=== PATIENT | female | born 1995 | race Caucasian/White ===

== ENCOUNTER 2018-02-06 08:10 | Inpatient (IN) | payer OTHER, SELFPAY ==
[2018-02-06 08:38] VITALS: BMI 24.3
[2018-02-06] MEDS: Lactated Ringers 1,000 ML 50 ML IV ×3 (08:40→14:07)
--- NOTE | 2018-02-06 08:54 | PCM.HP.OB ---
History Date of Admission: 02/06/18 Final ELAINA: 02/04/18 Final ELAINA Source: US <20 weeks Gestational age: 40 Weeks and 2 Days History of this : This is a 22 year-old, G [], P [], at 40 weeks gestational age. Allergies gluten Adverse Reaction (Verified 02/06/18 08:40) Upset Stomach Home Medications: Home Medications Vit Calc,Iron,Folic [ Vitamins] 02/06/18 Smoking Status: Never smoker Alcohol: None Number of Fetus(es): 1 Heart Tracing: Baseline 135, moderate variability, + accels, no decels TOCO Analysis: Ctx q 3-4 minutes, palpate moderately strong History Past Pregnancies: Past Pregnancies Delivery Date Name GA/Weeks Outcome Route Weight Gender Labor Length Anesthesia Delivery Location Provider FOB Labs: GBS Neg, H/H = 12.0/37.1, Plt count = WNL, 1 hour GCT = 92, U Tox = Neg, A +, Abs Neg, RPR = Neg, HIV = Neg, HepBsAg = Neg, Rubella = Immune Expected Delivery Method: Spontaneous Vaginal Describe any other labor & delivery plans:: Patient desires epidural Number of Visits: 14 Review of Systems Constitutional: Denies: Chills, Fever, Weight Change HEENT: Denies: Head Aches, Sinus Congestion, Sinus Drainage Cardiovascular: Denies: Chest Pain, Palpitations Respiratory: Denies: Cough, Shortness of breath at rest, Sputum production Gastrointestinal: Denies: Abdominal Pain, Nausea, Vomiting Genitourinary: Denies: Dysuria Gynecological: Denies: Vaginal bleeding, Vaginal discharge Musculoskeletal: Denies: Joint Pain, Joint Tenderness Skin: Denies: Rash, Wounds Neurological: Denies: Numbness, Tingling, Focal weakness Psychiatric: Denies: Anxiety, Depression, Homicidal Ideations, Suicidal Ideations Hematologic/ Lymphatic: Denies: Easy Bruising, Easy Bleeding Physical Exam Vitals: See nursing noted for vital signs - patient is afebrile and normotensive General: Alert, Oriented x3, No apparent distress HEENT: Atraumatic, Normocephalic. Negative for: Thyromegaly, Lymphadenopathy Cardiovascular: Regular rate, Regular Rhythm Lungs: Normal air movement Abdomen: Soft, Non Tender, Gravid, Appropriate for Gestational Age Neurological: Deep Tendon Reflexes 2+/4 and Symmetrical, Neuro grossly intact TRUCKMAN: Normal external genitalia. Negative for: Vulvar lesions Estimated gestational size: Appropriate for gestational size Presentation: Cephalic Cervix Dilation (cm): 6.5 - cervix posterior to midposition Station: 0 Effacement (%): 90 Assessment/Plan This is a 22 year-old, G [1], P [0], at 40 weeks gestational age, Active Labor, Category I FHT P: 1) Admit patient - patient desires epidural for pain management 2) Start IV and draw admission bloodwork 3) Encourage ambulation and PO hydration 4) Epidural on request once fluid bolus administered 5) Dr. Clayton OB back-up aware of admission and plan of care Dona APPLE
[2018-02-06 09:12] LABS: Hematocrit 34.7 % (37-47); Hemoglobin 11.3 g/dl (12.0-15.0); Mean Corp Hgb Conc 32.6 g/gl (32-36); Mean Corpuscular Hgb 29.1 pg (27.0-32.0); Mean Corpuscular Volume 89.4 fL (81-99); Mean Platelet Vol. 9.6 fl (6.2-12.0); Platelet Count 319 K/mm3 (150-450); RBC Distribution Width CV 12.8 % (11.6-14.6); RBC Distribution Width SD 40.7 fl (35.1-43.9); Red Blood Count 3.88 M/mm3 (4.2-5.4); White Blood Count 15.5 K/mm3 (4.4-11.0)
[2018-02-06 09:13] LABS: Scan Indicated on CBC? Y/N NO
[2018-02-06] MEDS: Ondansetron 4 MG/2 ML Vial IV (09:23)
[2018-02-06] MEDS: fentaNYL-bupivacaine (epidural) 100 ML BAG EPIDURAL ×2 (09:32→14:34)
--- NOTE | 2018-02-06 12:38 | PCM.PN.OB ---
Subjective: Patient is sitting comfortably with her epidural. Patient reports continued pressure sensations with contractions but overall is without any complaints. Patient desires SVE with possible AROM at this time. Objective: FHT baseline 140, moderate variability, + accels, no decels Ctx q 2-3 minutes, palpate moderate to strong SVE = 8/100/0, AROM for small clear fluid. After AROM cervix = 9/100/0 - Physical Exam General: Alert, Oriented x3, Cooperative HEENT: Atraumatic, Normocephalic Neck: Supple Lungs: Normal air movement Cardiovascular: Regular rate, No murmurs Abdomen: Soft, Non Tender, Appropriate for Gestational Age Extremities: No edema, Capillary Refill Less than 3 Seconds Skin: No rashes, No breakdown Musculoskeletal: No Tenderness to Palpation of Joints or Extremities Neurological: Cranial nerves II-XII grossly intact Psych/Mental Status: Normal Affect, Appropriate Weight: 160 lb Body Mass Index (BMI) 24.3 Laboratory Tests Past 24 Hrs 02/06/18 02/06/18 08:40 08:40 WBC 15.5 H RBC 3.88 L Hgb 11.3 L Hct 34.7 L MCV 89.4 MCH 29.1 MCHC 32.6 RDW 12.8 RDW Differential 40.7 Plt Count 319 MPV 9.6 Blood Type A POSITIVE Antibody Screen NEGATIVE Medical Necessity - Tobacco Use Smoking Status: Never smoker Assessment/Plan A: 22 y/o @ 40.2wks, Transition Stage of Labor, Category I FHT P: 1) Expectant management 2) Anticipate Dona APPLE
--- NOTE | 2018-02-06 14:58 | PCM.PN.OB ---
Subjective: Patient feeling urge to bear down and push. Patient's cervix noted to be C/C/+1 on exam by nursing staff. Objective: FHT baseline 140, moderate variability, early decels with each contraction Ctx q 2 minutes, palpate moderate to strong - Physical Exam General: Alert, Oriented x3, Cooperative HEENT: Atraumatic, Normocephalic Neck: Supple Lungs: Normal air movement Cardiovascular: Regular rate, No murmurs Abdomen: Soft, Non Tender Extremities: No edema, Capillary Refill Less than 3 Seconds Skin: No rashes, No breakdown Musculoskeletal: No Tenderness to Palpation of Joints or Extremities Neurological: Cranial nerves II-XII grossly intact Psych/Mental Status: Normal Affect, Appropriate Weight: 160 lb Body Mass Index (BMI) 24.3 Laboratory Tests Past 24 Hrs 02/06/18 02/06/18 08:40 08:40 WBC 15.5 H RBC 3.88 L Hgb 11.3 L Hct 34.7 L MCV 89.4 MCH 29.1 MCHC 32.6 RDW 12.8 RDW Differential 40.7 Plt Count 319 MPV 9.6 Blood Type A POSITIVE Antibody Screen NEGATIVE Medical Necessity - Tobacco Use Smoking Status: Never smoker Assessment/Plan A: 22 y/o @ 40.2wks, Second Stage of Labor, Category II FHT P: 1) Continue to push with patient urge 2) Anticipate Dona APPLE
[2018-02-06] MEDS: Oxytocin 30 units/NS 500 ml 30 UNITS/500 ML IV.SOLN 334 UNITS IV (16:09)
--- NOTE | 2018-02-06 16:23 | PCM.OB.VAG ---
Vaginal Delivery Maternal Presentation: Active Labor Patient presented in active labor after initiation of ctx at 0500 this morning. Ctx quickly became closer and stronger and patient was found to be 6/7 cm on admission to hospital. Patient's labor progressed uneventfully. Amniotic Membrane Rupture Type: Spontaneous at home Amniotic Fluid Description: Clear Final ELAINA: 02/04/18 Gestational age: 40 Weeks and 2 Days Date of Procedure: 02/06/18 Pre-Operative Diagnosis: Active Labor Post-Operative Diagnosis: of viable girl baby Surgery/ Procedure Performed: Spontaneous Vaginal Delivery Anesthesiologist: John Bazan Type of Anesthesia: Epidural Description of Procedure: Patient pushed well with urge, patient delivered a viable girl baby over an intact perineum at 1604. Infant head delivered OA, restituted to RICKY and then LOT. Shoulders delivered without difficulty followed by body. Infant placed on maternal chest where baby was dried and stimulated. Infant had spontaneous cry and respirations. Apgars 8 and 9. Weight Pending. Placenta then spontaneously delivered via Best mechanism intact with 3VC. FF midline 4FB below umbilicus. EBL = 150cc. IV pitocin for active management of 3rd stage infusing per protocol. Upon inspection of vaginal vault, 1st degree Rt. labial laceration noted. Repaired with 1 stitch of 3-0 Rapide suture under epidural analgesia. Sponge and needle count correct. Vaginal sweep negative. Baby to breast and bonding with [id number] initiated. Dona Casillas FANS CLERK-CNM Presentation: Vertex, RICKY Placental Delivery Description: Spontaneous Placenta Disposition: [facility] Cord Vessel Description: 3 Vessels Cord Entanglement: None Estimated Blood Loss: 150 Infant A gender: Female (1 minute): 8 (5 minute): 9 Episiotomy Description: None Laceration: None Medications given after delivery: IV Pitocin Complications: None
--- NOTE | 2018-02-06 16:35 | PCM.DCVAG ---
Discharge Diet: No Restrictions Discharge Activity: Return to Normal Activity, May not drive while taking narcotic pain medications., May Shower May resume sexual activity in: 4-6 weeks Additional Activity Instructions:: Nothing in the vagina for 4-6 weeks. You may return to work/school in 6 weeks. Call your doctor if your incision/area has: Continuous Slow Oozing, Sudden Increased Bleeding, Increased Pain/ Swelling, Increased Redness, Foul Smelling Discharge Call your doctor if you observe: Fever of 101 or Higher, Inability to urinate, Inability to have a bowel movement, Using more than one pad per hour Additional Instructions: If you experience any of the following, contact your healthcare provider. Bleeding that soaks a pad every hour for 2 hours Fever 100.4 or higher Unrelieved incision or abdominal pain Swelling, redness, discharge or bleeding from your incision or episiotomy site Your incision begins to separate Problems urinating (including inability to urinate or burning while urinating). Visual changes Severe headache Flu-like symptoms Pain or redness in one of both of your breasts Pain, warmth, tenderness or swelling in your legs, especially the calf area Frequent nausea and vomiting Symptoms of depression or anxiety If you experience any of the following, call 911 or go to the nearest Emergency Room. Chest pain Problems breathing Seizure activity Partial or complete paralysis of a body part, slurred speech, weakness or drooping of the face, or a sudden inability to walk or hold your balance Allergies/Adverse Reactions: Allergies gluten Adverse Reaction (Verified 02/06/18 08:40) Upset Stomach Medications to take at Discharge Vit Calc,Iron,Folic [ Vitamins] 02/06/18 Please Follow Up With: Dona Casillas CNM When: Call to make an appointment with your doctor in 6 weeks. If you had elevated Blood Pressure or 4th degree laceration you will need to be seen in 2 weeks. Primary Care Physician: Jacqueline Blanco DO [Primary Care Provider] - Test Results: Test results from this visit will be discussed in further detail at your follow-up appointment, if applicable. Proposed Discharge Date: 02/08/18
[2018-02-06] MEDS: Oxytocin 30 units/NS 500 ml 30 UNITS/500 ML IV.SOLN 167 UNITS IV (16:40)
[2018-02-06] MEDS: Acetaminophen 500 MG Tablet 1000 MG PO (16:53)
[2018-02-06 20:10] VITALS: BP 118/58; PULSE 89; RESP 18; TEMP 36.8
[2018-02-06 23:45] VITALS: BP 89/46; PULSE 82; RESP 18; TEMP 36.7
[2018-02-07] MEDS: Ibuprofen 600 MG Tablet PO ×4 (00:44→20:06)
[2018-02-07 04:15] VITALS: BP 93/53; PULSE 72; RESP 18; TEMP 36.8
[2018-02-07 07:45] VITALS: BP 87/50; PULSE 75; RESP 16; TEMP 36.5; O2SAT 97
--- NOTE | 2018-02-07 08:55 | PCM.PN.OB ---
Subjective: Patient sitting up in bed reporting no issues overnight. Baby is latching well and is also peeing/pooping well. Patient denies any issues; denies WARD, scotoma, dizziness. Denies any issues with urination or ambulation. Objective: Nipples without cracks or blisters FF midline @ 3FB below umbilicus Scant rubra lochia Perineum well-approximated +2/4 reflexes in LE with no edema Negative calf tenderness in LE - Physical Exam General: Alert, Oriented x3, Cooperative HEENT: Atraumatic, Normocephalic Neck: Supple Lungs: Normal air movement Cardiovascular: Regular rate, No murmurs Abdomen: Soft, Non Tender Extremities: No edema, Capillary Refill Less than 3 Seconds Skin: No rashes, No breakdown Musculoskeletal: No Tenderness to Palpation of Joints or Extremities Neurological: Cranial nerves II-XII grossly intact Psych/Mental Status: Normal Affect, Appropriate Vital Signs Temp Pulse Resp BP Pulse Ox 97.7 F L 75 16 87/50 L 97 02/07/18 07:45 02/07/18 07:45 02/07/18 07:45 02/07/18 07:45 02/07/18 07:45 Oxygen Delivery Method Room Air Weight: 160 lb Body Mass Index (BMI) 24.3 Intake and Output for Last 24 Hours 02/05/18 02/06/18 02/07/18 23:59 23:59 23:59 Intake Total 2876 / 2876 Output Total 1000 / 1000 Balance 1876 / 1876 Laboratory Tests Past 24 Hrs 02/06/18 02/06/18 08:40 08:40 WBC 15.5 H RBC 3.88 L Hgb 11.3 L Hct 34.7 L MCV 89.4 MCH 29.1 MCHC 32.6 RDW 12.8 RDW Differential 40.7 Plt Count 319 MPV 9.6 Blood Type A POSITIVE Antibody Screen NEGATIVE Medical Necessity - Tobacco Use Smoking Status: Never smoker Assessment/Plan 22 y/o now, s/p , PPD #1, Normal PP Course P: 1) Continue present PP orders 2) consultation visit today 3) Anticipate discharge to home tomorrow Dona APPLE
[2018-02-07 12:03] VITALS: BP 89/56; PULSE 82; RESP 16; TEMP 36.4; O2SAT 97
[2018-02-07] MEDS: Senna/Docusate Sodium 1 Tablet PO (12:03)
[2018-02-07 15:59] VITALS: BP 101/65; PULSE 71; RESP 16; TEMP 36.2; O2SAT 96
[2018-02-07 20:00] VITALS: BP 99/54; PULSE 81; RESP 18; TEMP 36.7; O2SAT 97
[2018-02-08 02:25] VITALS: BP 100/65; PULSE 75; RESP 18; TEMP 36.6; O2SAT 96
[2018-02-08] MEDS: Ibuprofen 600 MG Tablet PO ×2 (02:32→08:41)
[2018-02-08 07:52] VITALS: BP 100/56; PULSE 65; RESP 16; TEMP 36.5
--- NOTE | 2018-02-08 08:52 | PCM.PN.OB ---
Subjective: Doing well per patient and nursing staff. Denies headache, scotoma, chest pain, shortness of breath, increased vaginal bleeding or clots. Voiding and passing flatus. without difficulty. Planning D/C home today. - Physical Exam General: Alert, Oriented x3 HEENT: Atraumatic, Normocephalic Lungs: Clear to auscultation, Normal air movement, No rhonchi, No wheeze Cardiovascular: Regular rate, Regular Rhythm, No murmurs Abdomen: Bowel Sounds Present, Soft, - - Fundus firm 2 below U Extremities: No edema Psych/Mental Status: Normal Affect, Appropriate Vital Signs Temp Pulse Resp BP Pulse Ox 97.7 F L 65 16 100/56 L 96 02/08/18 07:52 02/08/18 07:52 02/08/18 07:52 02/08/18 07:52 02/08/18 02:25 Oxygen Delivery Method Room Air Weight: 160 lb Body Mass Index (BMI) 24.3 Intake and Output for Last 24 Hours 02/06/18 02/07/18 02/08/18 23:59 23:59 23:59 Intake Total 2876 / 2876 Output Total 1000 / 1000 Balance 1876 / 1876 Medical Necessity - Tobacco Use Smoking Status: Never smoker Assessment/Plan A:PPD #2 P: 1) Planning D/C home today. D/C instructions given. 2) Follow up in 2 weeks and 6 weeks for visit.
== END 2018-02-08 09:35 | disposition home or self-care (01) | DRG 775 ==
PROVIDERS: Advanced Practice Midwife; Admitting Provider Obstetrics & Gynecology; Family Provider Internal Medicine; PCP Internal Medicine; Visit Provider Obstetrics & Gynecology
DX: O42.02 Full-term premature rupture of membranes, onset of labor within 24 hours of rupture (principal); O70.0 First degree perineal laceration during delivery; Z3A.40 40 weeks gestation of pregnancy; Z37.0 Single live birth
CPT/HCPCS: 36415; 59025; 59050; 85027; 86850; 86900; 99218; J7120; G0378; J2405

== ENCOUNTER 2018-02-10 11:05 | Outpatient (CLI) | payer OTHER, SELFPAY | END 2018-02-10 12:00 | disposition home or self-care (01) | LOC: WPOUT 11:11 → WP 11:13 | PROVIDERS: Family Provider Internal Medicine; PCP Internal Medicine; Visit Provider Obstetrics & Gynecology | DX: Z39.1 Encounter for care and examination of lactating mother (principal) | CPT/HCPCS: 96152 ==

== ENCOUNTER 2018-05-10 18:48 | Emergency (ER) | payer OTHER, SELFPAY ==
[2018-05-10 18:49] VITALS: BP 118/71; PULSE 101; RESP 16; TEMP 37; O2SAT 98; BMI 21.1
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
[2018-05-10 20:33] VITALS: BP 113/66; PULSE 73; O2SAT 95
== END 2018-05-10 20:34 | disposition home or self-care (01) ==
PROVIDERS: Emergency Provider Emergency Medicine; Family Provider Internal Medicine; PCP Internal Medicine
DX: S09.90XA Unspecified injury of head, initial encounter (principal); V89.2XXA Person injured in unspecified motor-vehicle accident, traffic, initial encounter; Y93.89 Activity, other specified
CPT/HCPCS: 99282

== ENCOUNTER → 2020-02-27 17:00 | Outpatient (CLI) | payer OTHER, SELFPAY ==
[2020-02-27 18:25] LABS: hCG Titer Quant., Serum 4833 mIU/mL (1-3)
== END ==
PROVIDERS: PCP Internal Medicine; Referring Provider Obstetrics & Gynecology; Visit Provider Obstetrics & Gynecology
DX: Z78.9 Other specified health status (principal)
CPT/HCPCS: 36415; 84702

== ENCOUNTER → 2020-02-29 12:38 | Outpatient (CLI) | payer OTHER, SELFPAY ==
[2020-02-29 13:46] LABS: hCG Titer Quant., Serum 5912 mIU/mL (1-3)
== END ==
PROVIDERS: PCP Internal Medicine; Visit Provider Obstetrics & Gynecology
DX: N92.6 Irregular menstruation, unspecified (principal)
CPT/HCPCS: 36415; 84702

== ENCOUNTER → 2020-03-05 13:40 | Outpatient (CLI) | payer OTHER, SELFPAY ==
--- NOTE | 2020-03-05 13:41 | US_ITS ---
STUDY: FIRST TRIMESTER OBSTETRICAL ULTRASOUND REASON FOR EXAM: Female, 24 years old DATES- LMP UNKNOWN LMP: Unknown TECHNIQUE: Transvaginal TECHNICAL QUALITY: Adequate. PRIOR ULTRASOUND: None. FINDINGS: There is visualization of a single gestational sac in a normal intrauterine position. The mean sac diameter (MSD) measures 1.12 cm, indicating an estimated gestational age (EGA) of 5 weeks, 6 days. The gestational sac shape is within normal limits. There is no demonstrated yolk sac. The placenta is non-visualized. There is no demonstrated embryo ( pole). The estimated gestation age (EGA) by US is 5 weeks, 6 days. The estimated date of delivery (ELAINA) by US is 10/30/2020. The uterus measures 9.1 cm x 6.3 cm x 4.9 cm. There is no demonstrated uterine fibroid. The cervix is closed. The right ovary measures 2.8 cm x 1.9 cm x 1.7 cm. There is no right ovarian cyst. There is no visualized right adnexal mass or complex lesion. The left ovary measures 2.8 cm x 2.4 cm x 2.3 cm. There is no left ovarian cyst. There is no visualized left adnexal mass or complex lesion. There is no fluid in the cul de sac. US/Transvaginal w/Preg US IMPRESSION: Intrauterine gestational sac corresponding to a gestational age of 5 weeks and 6 days. No pole, yolk sac or heartbeat is seen at this time. Follow-up with serial beta hCG evaluation is recommended. Electronically Signed: Torito Jordan, at 15:11 EDT , Service support ,
== END ==
PROVIDERS: PCP Internal Medicine; Referring Provider Obstetrics & Gynecology; Visit Provider Obstetrics & Gynecology
DX: O20.0 Threatened abortion (principal); Z3A.00 Weeks of gestation of pregnancy not specified
CPT/HCPCS: 76817

== ENCOUNTER → 2020-03-11 13:44 | Outpatient (CLI) | payer OTHER, SELFPAY ==
--- NOTE | 2020-03-11 13:46 | US_ITS ---
STUDY: FIRST TRIMESTER OBSTETRICAL ULTRASOUND REASON FOR EXAM: Female, 24 years old FOLLOW UP PREV LMP UNKNOWN WELL BEING LMP: Unknown. TECHNIQUE: Transvaginal TECHNICAL QUALITY: Adequate. PRIOR ULTRASOUND: Comparison is made with prior examination dated 03/05/2020. FINDINGS: There is visualization of a single gestational sac in a normal intrauterine position. The mean sac diameter (MSD) measures 1.4 cm, indicating an estimated gestational age (EGA) of 6 weeks, 2 days. The gestational sac has an irregular appearance on the sagittal view. There is no demonstrated yolk sac. The placenta is non-visualized. There is no demonstrated embryo ( pole). The estimated gestation age (EGA) by LMP is unknown. The estimated gestation age (EGA) by US is 6 weeks, 2 days. The estimated date of delivery (ELAINA) by US is 11/02/2020. The uterus measures 9.6 cm x 6.6 cm x 5.1 cm there is evidence of a 2.6 cm x 0.6 cm x 0.7 cm subchorionic bleed adjacent to the empty gestational sac.. There is no demonstrated uterine fibroid. The cervix is closed. The right ovary is not visualized. The left ovary measures 3.2 cm x 2.2cm x 2.4 cm.. There is no left ovarian cyst. There is no visualized left adnexal mass or complex lesion. There is no fluid in the cul de sac. US/Init OB < 14Wks US IMPRESSION: Empty gestational sac which has an irregular appearance with a gestational age of 6 weeks and 2 days. 2.6 cm x 0.6 cm x 0.7 cm subchorionic bleed adjacent to the empty gestational sac. Electronically Signed: Torito Jordan, at 14:43 EDT , Service support ,
== END ==
PROVIDERS: PCP Internal Medicine; Referring Provider Obstetrics & Gynecology; Visit Provider Obstetrics & Gynecology
DX: O20.0 Threatened abortion (principal); Z3A.00 Weeks of gestation of pregnancy not specified
CPT/HCPCS: 76801

== ENCOUNTER → 2020-03-17 18:30 | Outpatient (CLI) | payer OTHER, SELFPAY ==
[2020-03-11 16:32] VITALS: BMI 21.1
--- NOTE | 2020-03-17 18:33 | US_ITS ---
STUDY: FIRST TRIMESTER OBSTETRICAL ULTRASOUND REASON FOR EXAM: Female, 24 years old. viability LMP: Unknown. TECHNIQUE: Transvaginal PRIOR ULTRASOUND: 03/11/20 FINDINGS: Again noted is fluid in the endometrial canal which may represent an early gestational sac. However, no yolk sac or pole is identified. There is a 2.1 x 0.5 cm subchorionic hemorrhage which is decreased in size when compared with the prior exam (previously 2.6 x 0.7 cm). The uterus measures 9.5 x 7.5 x 5.0 cm. There is no demonstrated uterine fibroid. The cervix is closed. The right ovary measures 3.5 x 2.5 x 1.7 cm. There is no right ovarian cyst. There is no visualized right adnexal mass or complex lesion. The left ovary measures 2.9 x 1.9 x 1.7 cm. There is no left ovarian cyst. There is no visualized left adnexal mass or complex lesion. There is no fluid in the cul de sac. US/Init OB < 14Wks US IMPRESSION: Redemonstration of fluid in the endometrial canal which may represent an early gestational sac. However, pneumocephalus or pole is identified. These findings may be due to an early intrauterine gestation, spontaneous or a nonvisualized ectopic . Follow-up sonography in beta hCG levels are recommended. 2.1 x 0.5 cm subchorionic hemorrhage which is decreased in size when compared with the prior exam. Electronically Signed: Marcelino Navarro, at 20:06 EDT Tel , Service support ,
== END ==
PROVIDERS: PCP Internal Medicine; Referring Provider Obstetrics & Gynecology; Visit Provider Obstetrics & Gynecology
DX: Z36.89 Encounter for other specified antenatal screening (principal)
CPT/HCPCS: 76801

== ENCOUNTER → 2020-05-24 18:09 | Outpatient (CLI) | payer OTHER, SELFPAY ==
[2020-03-26 13:04] VITALS: BMI 22.2
[2020-05-24 20:26] LABS: hCG Titer Quant., Serum 330 mIU/mL (1-3)
== END ==
PROVIDERS: PCP Internal Medicine; Visit Provider Obstetrics & Gynecology
DX: N91.2 Amenorrhea, unspecified (principal)
CPT/HCPCS: 36415; 84702

== ENCOUNTER → 2020-05-26 16:44 | Outpatient (CLI) | payer OTHER, SELFPAY ==
[2020-03-26 13:04] VITALS: BMI 22.2
[2020-05-26 18:17] LABS: hCG Titer Quant., Serum 764 mIU/mL (1-3)
== END ==
PROVIDERS: PCP Internal Medicine; Visit Provider Obstetrics & Gynecology
DX: O20.0 Threatened abortion (principal); Z3A.00 Weeks of gestation of pregnancy not specified
CPT/HCPCS: 36415; 84702

== ENCOUNTER → 2020-06-30 14:40 | Outpatient (CLI) | payer OTHER, SELFPAY ==
[2020-06-30 13:36] VITALS: BMI 22.4
[2020-06-30 16:13] LABS: Absolute Lymphocyte Count 2.11 X10^3/uL (0.83-4.51); Absolute Neutrophil Count 4.9 X10^3/uL (2.0-7.7); Basophil# 0.04 X10^3/uL; Basophil% 0.5 % (0-1); Eosinophils% 1.3 % (0-5); Hematocrit 38.2 % (37-47); Hemoglobin 12.6 g/dL (12.0-15.0); Lymphocyte # 2.11 X10^3/ul (4.0); Mean Corpuscular Hgb 29.2 pg (27.0-32.0); Mean Corpuscular Volume 88.6 fL (81-99); Mean Platelet Vol. 9.5 fl (6.2-12.0); Monocyte% 7.7 % (0-10); NRBC Flagged by Analyzer 0 % (0-5); Neutrophil # 4.94 X10^3/uL (2.7-7.7); Neutrophil % 63.2 % (47-70); Platelet Count 353 K/mm3 (150-450); RBC Distribution Width CV 13.2 % (11.6-14.6); RBC Distribution Width SD 42.9 fl (35.1-43.9); Red Blood Count 4.31 M/mm3 (4.2-5.4); White Blood Count 7.8 K/mm3 (4.4-11.0)
[2020-06-30 16:37] LABS: Amphetamine Urine VISTA NEGATIVE (<1000 ng/mL); Barbiturate Urine VISTA NEGATIVE (< 200 ng/mL); Benzodiazepine Urine VISTA NEGATIVE (< 200 ng/mL); Cocaine Urine VISTA NEGATIVE (< 300 ng/mL); Ecstacy Urine VISTA NEGATIVE (< 500 ng/mL); Methadone Urine VISTA NEGATIVE (< 300 ng/mL); PCP Urine VISTA NEGATIVE (< 25 ng/mL); THC Urine VISTA NEGATIVE (< 50 ng/mL); Vista UDS pH Range 5
[2020-07-01 01:36] LABS: Rapid Plasmin Reagin (RPR) NONREACTIVE (NONREACTIVE)
[2020-07-01 09:45] LABS: HIV - WCH Non-Reactive (Nonreactive); Hepatitis B Surface Antigen Non-Reactive (Nonreactive); Hepatitis C Antibody Non-Reactive (Nonreactive); Rubella IgG Reactive (Nonreactive)
[2020-07-05 15:20] LABS: Chlamydia By Nucleic Acid AMP Negative; Gonococcus By Nucleic Acid AMP Negative; HPV Reflexed? NOT INDICATED
== END ==
PROVIDERS: PCP Internal Medicine; Referring Provider Obstetrics & Gynecology; Visit Provider Obstetrics & Gynecology
DX: Z34.80 Encounter for supervision of other normal pregnancy, unspecified trimester (principal); Z12.4 Encounter for screening for malignant neoplasm of cervix
CPT/HCPCS: 36415; 80307; 85025; 86592; 86703; 86762; 86803; 86850; 86900; 86901; 87086; 87340; 87491; 87591; 88142

== ENCOUNTER → 2020-10-25 07:46 | Outpatient (CLI) | payer OTHER, SELFPAY ==
[2020-09-27 08:23] VITALS: BMI 24.0
[2020-10-25 07:58] LABS: Absolute Neutrophil Count 6.4 X10^3/uL (2.0-7.7); Basophil# 0.04 X10^3/uL; Basophil% 0.4 % (0-1); Eosinophil# 0.11 X10^3/uL; Eosinophils% 1.2 % (0-5); Hemoglobin 11.6 g/dL (12.0-15.0); Lymphocyte % 19.4 % (19-41); Mean Corp Hgb Conc 32.2 g/dL (32-36); Mean Corpuscular Hgb 30.7 pg (27.0-32.0); Mean Corpuscular Volume 95.2 fL (81-99); Mean Platelet Vol. 8.7 fl (6.2-12.0); Monocyte% 8.6 % (0-10); NRBC Flagged by Analyzer 0 % (0-5); Neutrophil # 6.42 X10^3/uL (2.7-7.7); Neutrophil % 69.2 % (47-70); Platelet Count 345 K/mm3 (150-450); RBC Distribution Width CV 13.5 % (11.6-14.6); RBC Distribution Width SD 47.7 fl (35.1-43.9); Red Blood Count 3.78 M/mm3 (4.2-5.4); White Blood Count 9.3 K/mm3 (4.4-11.0)
[2020-10-25 08:18] LABS: Glucose Challenge Gest 1H 50g 87 mg/dL (70-140)
== END ==
PROVIDERS: Nurse Practitioner Women's Health; PCP Internal Medicine; Referring Provider Obstetrics & Gynecology; Visit Provider Obstetrics & Gynecology
DX: Z34.80 Encounter for supervision of other normal pregnancy, unspecified trimester (principal); Z13.1 Encounter for screening for diabetes mellitus
CPT/HCPCS: 36415; 82950; 85025

== ENCOUNTER → 2020-11-08 08:08 | Outpatient (CLI) | payer OTHER, SELFPAY ==
[2020-09-27 08:23] VITALS: BMI 24.0
[2020-10-25 08:27] VITALS: BMI 24.0
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
== END ==
PROVIDERS: PCP Internal Medicine; Referring Provider Nurse Practitioner Women's Health; Visit Provider Nurse Practitioner Women's Health
DX: O98.512 Other viral diseases complicating pregnancy, second trimester (principal); U07.1 COVID-19; Z3A.22 22 weeks gestation of pregnancy
CPT/HCPCS: 76816

== ENCOUNTER → 2020-12-06 07:29 | Outpatient (CLI) | payer OTHER, SELFPAY ==
[2020-11-15 08:29] VITALS: BMI 24.0
--- NOTE | 2020-12-06 07:34 | US_ITS ---
STUDY: SECOND AND THIRD TRIMESTER OBSTETRICAL ULTRASOUND - LIMITED REASON FOR EXAM: Female, 25 years old . growth. LMP: 04/23/2020. PRIOR ULTRASOUND: Comparison is made with prior study dated 11/08/2020. TECHNIQUE: Transabdominal TECHNICAL QUALITY: Adequate. FINDINGS: There is a single intrauterine fetus. The fetus is in a cephalic presentation. There is demonstrated cardiac activity with a heart rate of 124 bpm. There is a normal amniotic fluid volume. The largest amniotic fluid pocket measures 6.18 cm. The amniotic fluid index (JOVITA) is 19.9 cm. The placenta is anterior in location and is not low lying. There are Grade 1 placental changes. The cervix measures 3 cm in length. BIOMETRY: BPD: 8.6 cm: 34 weeks, 4 days HC: 31.48 cm: 35 weeks, 2 days AC: 28.77 cm: 32 weeks, 5 days FL: 6.2 cm: 32 weeks, 1 days Age by LMP: 32 weeks, 3 days. ELAINA by LMP: 01/28/2021. age by prior US: 33 weeks, 2 days. ELAINA by prior US: 04/24/2021. age by current US: 33 weeks, 5 days. ELAINA by current US: 01/19/2021. Estimated weight: 2097 grams, +/- 3:15 grams, 58 percentile. US/OB Limited With Biometrics IMPRESSION: Single live intrauterine gestation with a mean gestational age of 33 weeks and 2 days. The measurements obtained today fall within the normal expected range. Electronically Signed: Torito Jordan MD at 10:09 EDT , Service support ,
== END ==
PROVIDERS: PCP Internal Medicine; Referring Provider Nurse Practitioner Women's Health; Visit Provider Nurse Practitioner Women's Health
DX: O98.519 Other viral diseases complicating pregnancy, unspecified trimester (principal); U07.1 COVID-19
CPT/HCPCS: 76816

== ENCOUNTER → 2020-12-07 | Outpatient (CLI) | payer OTHER, SELFPAY ==
[2020-12-07 11:37] VITALS: BMI 24.0
[2020-12-07 12:26] LABS: ROM Internal Control Test YES-OK TO RESULT pt. (Internal QC); ROM Patient Test Negative (Negative)
== END | disposition home or self-care (01) ==
PROVIDERS: PCP Internal Medicine; Visit Provider Nurse Practitioner Women's Health
DX: O42.90 Premature rupture of membranes, unspecified as to length of time between rupture and onset of labor, unspecified weeks of gestation (principal)
CPT/HCPCS: 84112

== ENCOUNTER → 2021-01-03 07:39 | Outpatient (CLI) | payer OTHER, SELFPAY ==
[2020-11-15 08:29] VITALS: BMI 24.0
[2020-12-20 08:51] VITALS: BMI 25.5
--- NOTE | 2021-01-03 07:42 | US_ITS ---
STUDY: SECOND AND THIRD TRIMESTER OBSTETRICAL ULTRASOUND - LIMITED REASON FOR EXAM: Female, 25 years old . growth. History of Covid. LMP: 04/23/2020. PRIOR ULTRASOUND: Comparison is made with prior study of 12/06/2020. TECHNIQUE: Transabdominal TECHNICAL QUALITY: Adequate. FINDINGS: There is a single intrauterine fetus. The fetus is in a cephalic presentation. There is demonstrated cardiac activity with a heart rate of 147 bpm. There is a normal amniotic fluid volume. The largest amniotic fluid pocket measures 5.9 cm. The amniotic fluid index (JOVITA) is 20.6 cm. The placenta is anterior in location and is not low lying. There are Grade 2 placental changes. The cervix was not measured due to head positioning. BIOMETRY: BPD: 9.3 cm: 37 weeks, 4 days HC: 33.2 cm: 37 weeks, 5 days AC: 31.5 cm: 35 weeks, 3 days FL: 6.9 cm: 35 weeks, 2 days Age by LMP: 36 weeks, 3 days. ELAINA by LMP: 03/30/2021. age by prior US: 37 weeks, 6 days. ELAINA by prior US: 01/11/2021. age by current US: 36 weeks, 4 days. ELAINA by current US: 01/27/2021. Estimated weight: 2810 grams, +/- 422 grams, 40 percentile. Cord is seen along the posterior aspect of the neck. US/OB Limited With Biometrics IMPRESSION: Single live intrauterine gestation with a mean gestational age of 37 weeks and 6 days. The measurements obtained today fall within the normal expected range. Electronically Signed: Torito Jordan MD at 13:43 EDT , Service support ,
== END ==
PROVIDERS: PCP Internal Medicine; Referring Provider Nurse Practitioner Women's Health; Visit Provider Nurse Practitioner Women's Health
DX: O98.519 Other viral diseases complicating pregnancy, unspecified trimester (principal); U07.1 COVID-19; Z3A.00 Weeks of gestation of pregnancy not specified
CPT/HCPCS: 76816; 87081

== ENCOUNTER 2021-01-26 12:00 | Inpatient (IN) | payer OTHER, SELFPAY ==
[2021-01-24 08:36] VITALS: BMI 25.5
[2021-01-26] VITALS (53 sets, daily range): BP systolic 104–138; BP diastolic 57–98; PULSE 67–104; RESP 18; TEMP 36.6–37.5; O2SAT 88–100; BMI 25.4
[2021-01-26] MEDS: Lactated Ringers 1,000 ML 50 ML IV (12:15)
[2021-01-26] MEDS: Oxytocin 30 units/NS 500 ml 30 UNITS/500 ML IV.SOLN IV (12:55)
[2021-01-26 13:05] LABS: Absolute Lymphocyte Count 1.85 X10^3/uL (0.83-4.51); Absolute Neutrophil Count 5.8 X10^3/uL (2.0-7.7); Basophil# 0.03 X10^3/uL; Basophil% 0.3 % (0-1); Eosinophil# 0.08 X10^3/uL; Eosinophils% 0.9 % (0-5); Hematocrit 33.2 % (37-47); Hemoglobin 10.7 g/dL (12.0-15.0); Lymphocyte # 1.85 X10^3/ul (0.83-4.51); Mean Corp Hgb Conc 32.2 g/dL (32-36); Mean Corpuscular Hgb 29.4 pg (27.0-32.0); Mean Corpuscular Volume 91.2 fL (81-99); Mean Platelet Vol. 9.9 fl (6.2-12.0); Monocyte# 0.97 X10^3/uL; NRBC Flagged by Analyzer 0 % (0-5); Platelet Count 307 K/mm3 (150-450); RBC Distribution Width CV 12.7 % (11.6-14.6); RBC Distribution Width SD 42.1 fl (35.1-43.9); Red Blood Count 3.64 M/mm3 (4.2-5.4); White Blood Count 8.8 K/mm3 (4.4-11.0)
--- NOTE | 2021-01-26 15:33 | HP.PCM.OB_ITS ---
HPI - General General Date of Admission: 01/26/21 HPI Narrative BRIT WALTER, is a 25 F at 39/5 who presents for induction for maternal discomfort and distance from hospital with advanced cervical dilation. Maternal Data Information ELAINA Calculator Estimated Delivery Date Method Current WG Current Estimate 01/28/21 Ultrasound #1 39w 5d PFSH PFSH Medical History (Updated 01/26/21 @ 15:[address] Kourtney Ceron MD) Anxiety depression Home Medications multivitamin no.47-iron fum 27 mg-folate no.1 1 mg-dha 300 mg capsule 1 cap PO DAILY 06/08/20 [History Last Taken 01/24/21 10:00 1] aspirin 81 mg PO DAILY 01/26/21 [History Last Taken 01/24/21 10:00 81 mg] Allergy/AdvReac Type Severity Reaction Status Date / Time gluten AdvReac Upset Verified 01/26/21 12:28 Stomach Family History (Updated 01/26/21 @ 12:36 by Evelina Ayoub RN) Brother Diabetes Father Diabetes Social History household members: family housing: house number of children: 1 Smoking Status: Never smoker alcohol intake: current details: social substance use type: does not use what type of physical activity do you participate in: none seatbelt use: always do you feel safe at home: Yes 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 Date Name GA/Weeks Outcome Route Bth Weight Gen Labor Lgth Anesthesia Del [facility] Provider FOB Unknown 02/06/2018- Kneeland 40 live - full term 8lbs 1oz Female [address] [facility] Dennis Casillas Delivery Date: 7 day post infection - fever ATB x10 days Evelina Rodriguez Visit Details Expected Delivery Route/Plan Labor Preferences- CB/BF classes: no labor support person: Rony labor intervention preferences: minimal intervention. pain management options preferred: desires natural - open to epidural cut cord/dad catch: cord : yes PP control planned: condoms then nuvaring. discussed possible routes of delivery and associated risks: discussed possible delivery modalities and possible indications for each including R/B/A of , VAVD, FAVD, and CS. questions answered. special requests: [] Plans COVID status: positive during 1st trimester flu vaccine: no tdap vaccine: given rhogam: na LARC form signed: yes movement and labor precautions reviewed. Problem list reviewed and updated with the most current plan of care details and appropriate orders placed. Relevant counseling for the gestational age provided. Continue routine care and follow up unless otherwise noted in visit notes/problem list details OB Flowsheet Initial Weight: Not Recorded Date -?-?-?-?-?-?-?-?-?-?-?-?- EGA Weight BP Urine Prot -?-?-?-?-?-?-?-?-?-?-?-?- Glucose FHR FuHt Pres Dilation -?-?-?-?-?-?-?-?-?-?-?-?- Effaced St Visit Note 06/30/20 -?-?-?-?-?-?-?-?-?-?-?-?- 9w 5d 143 lb 2 oz 100/62 -?-?-?-?-?-?-?-?-?-?-?-?- 175 -?-?-?-?-?-?-?-?-?-?-?-?- GP - CRL 25mm co nsistent with LMP. GP - CRL 25mm consistent ELAINA of 01/28. LMP unknown. 07/28/20 -?-?-?-?-?-?-?-?-?-?-?--?- 13w 5d 142 lb 2 oz 100/64 Nega tive -?-?-?-?-?-?-?-?-?-?-?-?- Negative 150 -?-?-?-?-?-?-?-?-?-?-?-?- GP - no cramping or bleeding. Anatomy scan ordered. 08/25/20 -?-?-?-?-?-?-?-?-?-?-?-?- 17w 5d 149 lb 4 oz 100/64 Nega tive -?-?-?-?-?-?-?-?-?-?-?-?- Negative 135 -?-?-?-?-?-?-?-?-?-?-?-?- GP - no cramping or bleeding. PRR. Anatomy scan 09/06. [id number]-[id number] is throwing gender reveal republican. 09/27/20 -?-?-?-?-?-?-?-?-?-?-?-?- 22w 3d 153 lb 4 oz 104/60 Trac e -?-?-?-?-?-?-?-?-?-?-?-?- Negative 142 -?-?-?-?-?-?-?-?-?-?-?-?- MH-No VB, LOF. G orion FM. Reviewed nl anatomy boy!. 28 wk growth US hx of covid ordered. 10/25/20 -?-?-?-?-?-?-?-?-?-?-?-?- 26w 3d 159 lb 100/58 Negative -?-?-?-?-?-?-?-?-?-?-?-?- Negative 141 26 -?-?-?-?-?-?-?-?-?-?-?-?- MH-No VB. LOF. Sonali sears Fm. Growth US 11/08, Larc. 28 w lab wnl 11/15/20 -?-?-?-?-?-?-?-?-?-?-?-?- 29w 3d 160 lb 2 oz 108/82 Nega tive -?-?-?-?-?-?-?-?-?-?-?-?- Negative 130 29 -?-?-?-?-?-?-?-?-?-?-?-?- GP - no LOF, VB, DFM, ctx. Decided on Ti for name. GP - no LOF, VB, DFM, ctx. D ecided on Ti for name. Discussed medication for allergies 12/06/20 -?-?-?-?-?-?-?-?-?-?-?-?- 32w 3d 165 lb 102/60 -?-?-?-?-?-?-?-?-?-?-?-?- 140 33 -?-?-?-?-?-?-?-?-?-?-?-?- SM- no vb lof go od fm no regular ctx SM- co some left lower groin pain. no vb lof good fm no regular ctx. US today. 12/07/20 -?-?-?--?-?-?-?-?-?-?-?-?- 32w 4d 165 lb 8 oz 90/56 Nega tive -?-?-?-?-?-?-?-?-?-?-?-?- Negative 131 2 -?-?-?-?-?-?-?-?-?-?-?-?- 40 -work in for gush of clear fluid. ROM pending. NO VB. Good FM 12/20/20 -?-?-?-?-?-?-?-?-?-?-?-?- 34w 3d 163 lb 4 oz 98/60 Nega tive -?-?-?-?-?-?-?-?-?-?-?-?- Negative 130 34 Cephalic -?-?-?-?-?-?-?-?-?-?-?-?- GP - no LOF, VB, DFM, ctx. Discussed routes of delivery. 01/03/21 -?-?-?-?-?-?-?-?-?-?-?-?- 36w 3d 166 lb 112/66 Negative -?-?-?-?-?-?-?-?-?-?-?-?- Negative 130 35 Cephalic 2 -?-?-?-?-?-?-?-?-?-?-?-?- 40 -1 SM- no vb lof good fm no regular ctx gbs today 01/10/21 -?-?-?-?-?-?-?-?-?-?-?-?- 37w 3d 165 lb 4 oz 100/58 Nega tive -?-?-?-?-?-?-?-?-?-?-?-?- Negative 140 37 Cephalic 4 -?-?-?-?-?-?-?-?-?--?-?-?- 60 -2 GP - no LO F, VB, DFM, ctx. Denies complaints 01/17/21 -?-?-?-?-?-?-?-?-?-?-?-?- 38w 3d 168 lb 98/70 Negative -?-?-?-?-?-?-?-?-?-?-?-?- Negative 130 37 Cephalic 4 -?-?-?-?-?-?-?-?-?-?-?-?- 60 -2 SM- no vb lof good fm no regular ctx. Membranes swept 01/24/21 -?-?-?-?-?-?-?-?-?-?-?-?- 39w 3d 169 lb 2 oz 108/70 Nega tive -?-?-?-?-?-?-?-?-?-?-?-?- Negative 130 39 Cephalic 5 -?-?-?-?-?-?-?-?-?-?-?-?- 70 -2 GP - no LO F, VB, DFM, ctx. Discussed expectant management vs. elective induction. GP - no LOF, VB, DFM, ctx. D iscussed expectant management vs. elective induction. Plan IOL today due to advanced dilation and distance from hospital. 01/26/21 -?-?-?-?-?-?-?-?-?-?-?-?- 39w 5d 167 lb 110/63 111/67 115/64 -?-?-?-?-?-?-?-?-?-?-?-?- 130 -?-?-?-?-?-?-?-?-?-?-?-?- GP - presents fo r induction of labor NST FHR Rate Baby A Baseline: 130 Variability:: Moderate Accelerations:: 15 x 15 Decelerations:: None NST Reactive:: Yes FHR Category:: Category I Uterine Activity:: q3-5 min ROS Eyes Eyes: Reports systems reviewed and no addt'l complaints, except as documented ENT HEENT: Reports systems reviewed and no addt'l complaints, except as documented Cardiovascular Cardiovascular: Reports systems reviewed and no addt'l complaints, except as documented Respiratory/Chest Respiratory/Chest: Reports systems reviewed and no addt'l complaints, except as documented Gastrointestinal Gastrointestinal: Reports systems reviewed and no addt'l complaints, except as documented Genitourinary Genitourinary: Reports systems reviewed and no addt'l complaints, except as documented Musculoskeletal Musculoskeletal: Reports systems reviewed and no addt'l complaints, except as documented Integumentary Integumentary: Reports systems reviewed and no addt'l complaints, except as documented Neurologic Neurologic: Reports systems reviewed and no addt'l complaints, except as documented Psychiatric Psychiatric: Reports systems reviewed and no addt'l complaints, except as documented Endocrine Endocrinology: Reports systems reviewed and no addt'l complaints, except as documented Hematologic/Lymphatic Hematologic/Lymphatic: Reports systems reviewed and no addt'l complaints, except as documented Allergic/Immunologic Allergic/Immunologic: Reports systems reviewed and no addt'l complaints, except as documented Vital Signs Vital Signs Vital Signs: 01/26/21 13:02 01/26/21 13:03 01/26/21 13:37 Temperature 97.9 F Temperature Source Temporal Pulse Rate 75 79 77 Blood Pressure 110/63 111/67 BP Systolic 110 111 BP Diastolic 63 67 Pulse Ox 97 01/26/21 14:44 01/26/21 14:45 Temperature 98.6 F Temperature Source Temporal Pulse Rate 72 Blood Pressure 115/64 BP Systolic 115 BP Diastolic 64 Pulse Ox Weight Weight: 167 lb Body Mass Index (BMI) 25.4 Physical Exam Const alert, oriented x3, no apparent distress, average body habitus, healthy a ppearing and well nourished HEENT normocephalic and moist oral mucous membranes Head and Scalp: atraumatic Eyes PERRL and EOMs intact bilaterally Neck full ROM Resp normal respiratory effort, no retractions and no use of accessory muscles Cardio regular rate and regular rhythm GI soft to palpation, non-tender and non-distended Extremity normal to inspection and full ROM Skin no rashes or lesions noted Neuro no focal motor deficits and no sensory deficits noted Psych mental status grossly normal, affect normal, speech normal and activity/motor behavior normal Labs Labs Labs: Blood Type A POSITIVE Antibody Screen NEGATIVE Hct 33.2 % (37-47) L Hgb 10.7 g/dL (12.0-15.0) L Obstetrics US Rubella IgG Antibody Reactive (Nonreactive) Hep Bs Antigen Non-Reactive (Nonreactive) Neisseria gonorrhoeae DNA (SWAPNA) Negative HIV 1&2 Antibody Non-Reactive (Nonreactive) Glucose 1 Hr 50 gm 87 mg/dL (70-140) Rhogam given: No Assessment & Plan (1) COVID-19 affecting , antepartum: COMMENT: Taking baby ASA, plan growth US starting at 28 weeks, 12/06 nl growth, 01/03 nl growth (2) Abnormal Pap smear of cervix: QUALIFIERS: Abnormal Pap type: unspecified Qualified Code(s): R87.619 - Unspecified abnormal cytological findings in specimens from cervix uteri COMMENT: colposcopy x2 (3) Supervision of other normal : COMMENT: PRR ELAINA 01/28/21 Boy! Ti PC: Trae Spouse: Rony (4) : QUALIFIERS: Weeks of gestation: 39 weeks Qualified Code(s): Z3A.39 - 39 weeks gestation of COMMENT: declines genetic, ntd, and carrier screening. nl anatomy (5) Encounter for elective induction of labor: PLAN: Patient presents IOL, plan management for with pitocin/AROM. Pain management: desires natural. GBS negative. Management of any complications: none I have reviewed the [facility] and made any clinically relevant updates.
[2021-01-26] MEDS: fentaNYL 100 MCG/2 ML Ampul IV (15:55)
[2021-01-26] MEDS: Lactated Ringers 500 ML 999 ML IV (16:06)
[2021-01-26] MEDS: fentaNYL-bupivacaine (epidural) 100 ML BAG EPIDURAL (17:04)
[2021-01-26] MEDS: Oxytocin 30 units/NS 500 ml 30 UNITS/500 ML IV.SOLN 334 UNITS IV (17:37)
--- NOTE | 2021-01-26 17:50 | EX.PCM.OBRPT ---
Assessment & Plan (1) Encounter for elective induction of labor: (2) : QUALIFIERS: Weeks of gestation: 39 weeks Qualified Code(s): Z3A.39 - 39 weeks gestation of COMMENT: declines genetic, ntd, and carrier screening. nl anatomy (3) Supervision of other normal : COMMENT: PRR ELAINA 01/28/21 Boy! Ti PC: Trae Spouse: Rony (4) Abnormal Pap smear of cervix: QUALIFIERS: Abnormal Pap type: unspecified Qualified Code(s): R87.619 - Unspecified abnormal cytological findings in specimens from cervix uteri COMMENT: colposcopy x2 (5) COVID-19 affecting , antepartum: COMMENT: Taking baby ASA, plan growth US starting at 28 weeks, 12/06 nl growth, 01/03 nl growth (6) Spontaneous vaginal delivery: Maternal Data Information ELAINA Calculator Estimated Delivery Date Method Current WG Current Estimate 01/28/21 Ultrasound #1 39w 5d Vaginal Delivery Maternal Presentation Maternal Presentation: Elective Induction Maternal Presentation: 25-year-old G2, P1 at 39 weeks gestation who was admitted for elective induction for term favorable cervix with long commute to the hospital. Type of Induction: Pitocin Operative Information Date of Procedure: 01/26/21 Pre-Operative Diagnosis: Term , elective induction Post-Operative Diagnosis: Same Surgery / Procedure Performed: Spontaneous Vaginal Delivery Type of Anesthesia: Epidural and Local with 1% Lidocaine Drain: Cummings to straight drain Estimated Blood Loss: 200 Findings Description of Procedure: Patient began pushing and delivered the head in the RICKY presentation. The head was delivered atraumatically and a loose nuchal cord was noted and delivered through. The anterior and posterior shoulders delivered without complication followed by the rest of the infant and the was placed on the maternal abdomen. Delayed cord clamping was employed for approximately 60 seconds. Cord was clamped and cut and gentle traction was applied to the cord and the placenta delivered spontaneously immediately following it was noted to be intact with three-vessel cord. The perineum and vagina were inspected and a midline first-degree perineal laceration was noted and repaired in the standard fashion using 3-0 Vicryl Rapide suture. EBL was 200 cc. Patient and tolerated delivery well. Presentation: Vertex and RICKY Amniotic Membrane Rupture Type: Spontaneous Amniotic Fluid Description: Clear Placental Delivery Description: Spontaneous Placenta Disposition: [facility] Cord Vessel Description: 3 Vessels Cord Entanglement: Around neck x 1, loose Infant A Gender: Male Delayed Cord Clamping: Yes Post Vaginal Delivery Medications Given After Delivery: IV Pitocin Episiotomy Description: None Laceration: Midline, Perineal Extension/lac and 1st degree Complication Complications: None Procedures Urinary/Genital [id number]: [id number] Vaginal Delivery global pk
--- NOTE | 2021-01-26 17:55 | PCM.DC ---
Discharge Instructions Diet Discharge Diet: No restrictions Activity Discharge Activity: Return to Normal Activity, May Not Drive (while taking narcotic pain medications.) and May Shower May resume sexual activity in: 4-6 weeks Dressing / Incision Call your doctor if your incision/area has: Continuous Slow Oozing, Sudden Increased Bleeding, Increased Pain/ Swelling, Increased Redness and Foul Smelling Discharge Follow Up Care When: Call to make an appointment with your doctor in 6 weeks. If you had elevated Blood Pressure or 4th degree laceration you will need to be seen in 2 weeks. Test Results: Test results from this visit will be discussed in further detail at your follow-up appointment, if applicable. Discharge Plan Admission Admit Date/Time: 01/26/21 12:00 Attending Provider: Kourtney Ceron Primary Care Provider: Jacqueline Blanco Instructions Patient Instructions: After a Vaginal Discharge Orders/Prescriptions Prescriptions: New ibuprofen 800 mg tablet 800 mg PO Q8H PRN (Reason: pain) Qty: 30 RF: 1 Continued PNV-DHA 27 mg iron-1 mg -300 mg capsule 1 cap PO DAILY RF: 0 Discontinued aspirin 81 mg Tablet 81 mg PO DAILY RF: 0 Referrals / Follow Up: Jacqueline Blanco DO [Primary Care Provider] -
[2021-01-26] MEDS: Acetaminophen 500 MG Tablet 1000 MG PO (19:30)
[2021-01-26] MEDS: 0.9% Saline Lock 10 ML Syringe IV (20:41)
--- NOTE | 2021-01-26 23:06 | NURSING ---
report given to Inderjit Shook RN, assuming care of pt at this time
[2021-01-27 00:03] VITALS: BP 110/62; PULSE 74; RESP 16; TEMP 36.9
[2021-01-27 05:51] VITALS: BP 99/62; PULSE 82; RESP 16; TEMP 36.6
[2021-01-27 08:05] VITALS: BP 105/62; PULSE 79; RESP 16; TEMP 36.7
--- NOTE | 2021-01-27 08:37 | PCM.PN.OB ---
Subjective Subjective Patient doing well without complaints. Tolerating PO. Ambulating and voiding without difficulty. Breast feeding well. Denies chest pain, shortness of breath, calf pain/swelling, fevers, chills, lightheadedness. Objective Data Objective Data Vital Signs: Vital Signs Temp Pulse Resp BP Pulse Ox 98.0 F 79 16 105/62 97 01/27/21 08:05 01/27/21 08:05 01/27/21 08:05 01/27/21 08:05 01/26/21 20:07 Oxygen Delivery Method Room Air Weight: 167 lb Body Mass Index (BMI) 25.4 Intake & Output: Intake and Output for Last 24 Hours 01/25/21 01/26/21 01/27/21 23:59 23:59 23:59 Intake Total 1296.74 / 1296.74 Output Total 510 / 510 Balance 786.74 / 786.74 Lab / Micro Data Result Diagrams: 01/26/21 12:15 Labs: Laboratory Results - last 24 hr 01/26/21 12:15: WBC 8.8, RBC 3.64 L, Hgb 10.7 L, Hct 33.2 L, MCV 91.2, MCH 29.4, MCHC 32.2, RDW Std Deviation 42.1, RDW Coeff of Christopher 12.7, Plt Count 307, MPV 9.9, Immature Gran % (Auto) 0.800, Neut % (Auto) 66.0, Lymph % (Auto) 21.0, [place] % (Auto) 11.0 H, Eos % (Auto) 0.9, Baso % (Auto) 0.3, Absolute Neuts (auto) 5.8, Absolute Lymphs (auto) 1.85, Nucleated RBC % 0 01/26/21 12:15: Blood Type Cancelled, A1 Antigen Typing Cancelled, Rho(D) Type Cancelled, Antibody Screen Cancelled 01/26/21 14:10: Blood Type A POSITIVE, Antibody Screen NEGATIVE Micro: Microbiology 01/26/21 13:20 Mucosa - Nasopharyngeal SARS-CoV-2 Antigen (Rapid) - Final ROS Constitutional Constitutional: Denies fever(s) Cardiovascular Cardiovascular: Denies chest pain, dyspnea or lightheadedness Gastrointestinal Gastrointestinal: Reports abdominal pain; Denies constipation or diarrhea Neurologic Neurologic: Denies dizziness or headache(s) Physical Exam Const alert, oriented x3, no apparent distress, average body habitus, healthy appearing and well nourished HEENT normocephalic Head and Scalp: atraumatic Eyes PERRL and EOMs intact bilaterally Neck full ROM Lymph Lymphatic: no lymphadenopathy noted Resp normal respiratory effort, no retractions and no use of accessory muscles Cardio regular rate GI soft to palpation, non-tender and non-distended Palpation: other Other Details: fundus firm Extremity normal to inspection and no clubbing, cyanosis or edema Skin no rashes or lesions noted Neuro no focal motor deficits and no sensory deficits noted Psych mental status grossly normal, affect normal and speech normal Assessment & Plan (1) Spontaneous vaginal delivery: PLAN: s/p PPD # 1 1. routine post delivery care 2. breast feeding- support given 3. rh positive 4. rubella immune
[2021-01-27 13:24] VITALS: BP 99/62; PULSE 68; RESP 16; TEMP 36.8
[2021-01-27] MEDS: Acetaminophen 500 MG Tablet 1000 MG PO (13:29)
[2021-01-27 18:16] VITALS: BP 98/54; PULSE 68; RESP 16; TEMP 36.9
== END 2021-01-27 18:55 | disposition home or self-care (01) | DRG 807 ==
PROVIDERS: Admitting Provider Obstetrics & Gynecology; PCP Internal Medicine; Visit Provider Obstetrics & Gynecology
DX: O69.81X0 Labor and delivery complicated by cord around neck, without compression, not applicable or unspecified (principal); O70.0 First degree perineal laceration during delivery; Z20.822 Contact with and (suspected) exposure to COVID-19; Z79.82 Long term (current) use of aspirin; Z86.16 Personal history of COVID-19; Z3A.39 39 weeks gestation of pregnancy; Z37.0 Single live birth
CPT/HCPCS: 59025; 59050; 85025; 86850; 86900; 86901; 87426; 99218; J7120; A4216; G0378

== ENCOUNTER 2021-09-28 16:20 | Outpatient (CLI) | payer OTHER, SELFPAY ==
[2021-09-28 18:05] LABS: hCG Titer Quant., Serum 43242 mIU/mL (1-3)
== END 2021-09-28 23:59 | disposition home or self-care (01) ==
LOC: LAB 16:20
PROVIDERS: PCP Internal Medicine; Visit Provider Nurse Practitioner Women's Health
DX: N91.2 Amenorrhea, unspecified (principal)
CPT/HCPCS: 36415; 84702

== ENCOUNTER 2021-09-30 16:22 | Outpatient (CLI) | payer OTHER, SELFPAY ==
--- NOTE | 2021-09-30 16:26 | US_ITS ---
EXAM: US OB Transvaginal HISTORY: dating TECHNIQUE: US OB Transvaginal COMPARISON: 01/03/2021. LIMITATIONS: None. UTERUS Size: Within normal limits Masses: None. Gestational sac: Single intrauterine gestational sac visualized. Subchorionic hemorrhage: Complex collection adjacent to the gestational sac measuring 4.7 x 4.4 x 2.5 cm. Yolk sac: Visualized. pole: CRL = 5.7 cm, 12 weeks 1 day. Cardiac activity: 170 bpm. OVARIES/ADNEXA Right: Not visualized Left: Not visualized OTHER: None. US/Transvaginal w/Preg US IMPRESSION: 1. Single live intrauterine , 12 weeks 1 day. 2. Subchorionic hemorrhage measuring 4.7 cm. Electronically Signed: Bucky Gonzalez MD at 8:02 EDT ,
== END 2021-09-30 23:59 | disposition home or self-care (01) ==
LOC: US 16:23
PROVIDERS: PCP Internal Medicine; Visit Provider Obstetrics & Gynecology
DX: Z78.9 Other specified health status (principal)
CPT/HCPCS: 76817

== ENCOUNTER → 2021-10-17 | Outpatient (CLI) | payer OTHER, SELFPAY ==
[2021-10-17 10:07] LABS: Absolute Lymphocyte Count 2.08 X10^3/uL (0.83-4.51); Absolute Neutrophil Count 4.2 X10^3/uL (2.0-7.7); Basophil# 0.02 X10^3/uL; Basophil% 0.3 % (0-1); Eosinophil# 0.07 X10^3/uL; Hematocrit 37.4 % (37-47); Hemoglobin 12.6 g/dL (12.0-15.0); Lymphocyte # 2.08 X10^3/ul (0.83-4.51); Lymphocyte % 29.8 % (19-41); Mean Corp Hgb Conc 33.7 g/dL (32-36); Mean Corpuscular Hgb 30.1 pg (27.0-32.0); Mean Corpuscular Volume 89.5 fL (81-99); Mean Platelet Vol. 9.1 fl (6.2-12.0); Monocyte# 0.54 X10^3/uL; Monocyte% 7.7 % (0-10); NRBC Flagged by Analyzer 0 % (0-5); Neutrophil # 4.24 X10^3/uL (2.7-7.7); Neutrophil % 60.6 % (47-70); Platelet Count 304 K/mm3 (150-450); RBC Distribution Width CV 13.5 % (11.6-14.6); RBC Distribution Width SD 44.2 fl (35.1-43.9); Red Blood Count 4.18 M/mm3 (4.2-5.4)
[2021-10-17 10:39] LABS: Amphetamine Urine VISTA NEGATIVE (<1000 ng/mL); Barbiturate Urine VISTA NEGATIVE (< 200 ng/mL); Benzodiazepine Urine VISTA NEGATIVE (< 200 ng/mL); Cocaine Urine VISTA NEGATIVE (< 300 ng/mL); Ecstacy Urine VISTA NEGATIVE (< 500 ng/mL); Methadone Urine VISTA NEGATIVE (< 300 ng/mL); PCP Urine VISTA NEGATIVE (< 25 ng/mL); THC Urine VISTA NEGATIVE (< 50 ng/mL); Vista UDS pH Range 6
[2021-10-17 10:58] LABS: Free T3 2.5 pg/mL (2.18-3.98); Thyroid Stim Hormone (TSH) 0.81 uIU/mL (0.358-3.74)
[2021-10-17 11:18] LABS: HIV - WCH Non-Reactive (Nonreactive); Hepatitis B Surface Antigen Non-Reactive (Nonreactive); Hepatitis C Antibody Non-Reactive (Nonreactive); Rubella IgG Reactive (Nonreactive); Syphilis Antibodies Non-reactive
[2021-10-17 13:58] LABS: Chlamydia Trachomatis by PCR Negative (Negative); Neisserai gonorrhoeae by PCR Negative (Negative); Probe Check PASS; Sample Adequacy Control PASS; Specimen Processing Control PASS
== END | disposition home or self-care (01) ==
LOC: LAB 09:00
PROVIDERS: PCP Internal Medicine; Referring Provider Obstetrics & Gynecology; Visit Provider Obstetrics & Gynecology
DX: Z34.90 Encounter for supervision of normal pregnancy, unspecified, unspecified trimester (principal)
CPT/HCPCS: 36415; 80307; 84439; 84443; 84481; 85025; 86703; 86762; 86780; 86803; 86850; 86900; 86901; 87086; 87088; 87340; 87491; 87591

== ENCOUNTER → 2021-11-07 | Outpatient (CLI) | payer OTHER, SELFPAY | END | disposition home or self-care (01) | LOC: LABSPEC 11-08 06:53 | PROVIDERS: PCP Internal Medicine; Referring Provider Obstetrics & Gynecology; Visit Provider Obstetrics & Gynecology | DX: Z34.90 Encounter for supervision of normal pregnancy, unspecified, unspecified trimester (principal) | CPT/HCPCS: 87086; 87088 ==

== ENCOUNTER → 2021-11-25 | Outpatient (CLI) | payer OTHER, SELFPAY ==
--- NOTE | 2021-11-25 16:12 | US_ITS ---
STUDY: SECOND AND THIRD TRIMESTER OBSTETRICAL ULTRASOUND REASON FOR EXAM: Female, 26 years old , evaluate . LMP: 07/07/2021 TECHNIQUE: Transabdominal and Transvaginal TECHNICAL QUALITY: Adequate. PRIOR ULTRASOUND: 09/30/2021 FINDINGS: There is a single intrauterine fetus. The fetus is in a breech presentation. There is demonstrated cardiac activity with a heart rate of 138 bpm. There is a normal amniotic fluid volume. The largest amniotic fluid pocket measures 7.2 x 3.1 cm. The amniotic fluid index (JOVITA) is not measured. The placenta is posterior in location and is not low lying. There are Grade 0 placental changes. The cervix measures 3.3 cm in length. The adnexal regions are not visualized. Hypoechoic area adjacent to the lower end of the placenta measuring by 3.4 x 2.7 x 2.1 cm could represent residual old hemorrhage or possibly small fibroid. BIOMETRY: BPD: 4.4 cm: 19 weeks, 2 days HC: 17.6 cm: 20 weeks, 0 days AC: 14.9 cm: 20 weeks, 1 days FL: 2.9 cm: 18 weeks, 6 days CI: FL/BPD: 66.09 FL/HC: 16.52 FL/AC: 19.53 HC/AC: 1.18 age by current US: 19 weeks, 5 days. ELAINA by current US: 04/16/2022. Estimated weight: 302 grams, +/- 45 grams. age by prior US: 11 weeks, 4 days. ELAINA by prior US: 04/17/2022. Age by LMP: 20 weeks, 1 days. ELAINA by LMP: 04/13/2022. ANATOMY: Gender: Male Cranium: Normal lateral ventricles. Normal choroid plexus. Normal cerebellum. Normal cisterna magna. Normal face, nose and lips. Chest: Normal 4-chamber heart. Abdomen/Pelvis: Normal diaphragm. Normal stomach. Normal abdominal wall. Normal cord insertion. Normal 3 vessel cord. Normal kidneys. Normal bladder. Spine: Normal cervical spine. Normal thoracic spine. Normal lumbar spine. Normal sacrum. Extremities: Normal bilateral upper extremities. Normal bilateral lower extremities. US/OB Anatomy Scan IMPRESSION: 1. Single live intrauterine fetus in breech presentation with an estimated gestational age of 19 weeks and 5 days. 2. Well-defined hypoechoic area adjacent to the lower edge of the placenta but separate from the placenta of undetermined etiology and could represent residual hemorrhage or possibly fibroid. Follow-up exam is recommended. Electronically Signed: Douglas Solano MD at 15:14 EDT ,
== END | disposition home or self-care (01) ==
LOC: US 16:10
PROVIDERS: PCP Internal Medicine; Referring Provider Obstetrics & Gynecology; Visit Provider Obstetrics & Gynecology
DX: Z34.90 Encounter for supervision of normal pregnancy, unspecified, unspecified trimester (principal)
CPT/HCPCS: 76805; 76817

== ENCOUNTER → 2022-01-23 | Outpatient (CLI) | payer OTHER, SELFPAY ==
[2022-01-23 08:26] LABS: Absolute Lymphocyte Count 2.17 X10^3/uL (0.83-4.51); Basophil# 0.04 X10^3/uL; Basophil% 0.4 % (0-1); Eosinophil# 0.12 X10^3/uL; Eosinophils% 1.3 % (0-5); Hematocrit 38.7 % (37-47); Hemoglobin 12.6 g/dL (12.0-15.0); Lymphocyte # 2.17 X10^3/ul (0.83-4.51); Lymphocyte % 23.8 % (19-41); Mean Corp Hgb Conc 32.6 g/dL (32-36); Mean Corpuscular Hgb 30.8 pg (27.0-32.0); Mean Corpuscular Volume 94.6 fL (81-99); Mean Platelet Vol. 9.2 fl (6.2-12.0); Monocyte# 0.74 X10^3/uL; Monocyte% 8.1 % (0-10); NRBC Flagged by Analyzer 0 % (0-5); Neutrophil # 5.98 X10^3/uL (2.7-7.7); Neutrophil % 65.7 % (47-70); Platelet Count 319 K/mm3 (150-450); RBC Distribution Width CV 12.8 % (11.6-14.6); RBC Distribution Width SD 44.5 fl (35.1-43.9); Red Blood Count 4.09 M/mm3 (4.2-5.4); White Blood Count 9.1 K/mm3 (4.4-11.0)
[2022-01-23 08:43] LABS: Glucose Challenge Gest 1H 50g 112 mg/dL (70-140)
== END | disposition home or self-care (01) ==
LOC: PAVLAB 08:13
PROVIDERS: Nurse Practitioner Women's Health; PCP Internal Medicine; Visit Provider Obstetrics & Gynecology
DX: Z34.90 Encounter for supervision of normal pregnancy, unspecified, unspecified trimester (principal)
CPT/HCPCS: 36415; 82950; 85025

== ENCOUNTER → 2022-02-20 | Outpatient (CLI) | payer OTHER, SELFPAY ==
[2022-02-20 09:29] LABS: ROM Internal Control Test YES-OK TO RESULT pt. (Internal QC); ROM Patient Test Negative (Negative)
== END | disposition home or self-care (01) ==
PROVIDERS: PCP Internal Medicine; Visit Provider Obstetrics & Gynecology
DX: O42.90 Premature rupture of membranes, unspecified as to length of time between rupture and onset of labor, unspecified weeks of gestation (principal); Z3A.00 Weeks of gestation of pregnancy not specified
CPT/HCPCS: 84112

== ENCOUNTER → 2022-03-20 | Outpatient (CLI) | payer MEDICAID, SELFPAY | END | disposition home or self-care (01) | LOC: LABSPEC 03-21 06:45 | PROVIDERS: PCP Internal Medicine; Visit Provider Obstetrics & Gynecology | DX: Z34.90 Encounter for supervision of normal pregnancy, unspecified, unspecified trimester (principal) | CPT/HCPCS: 87081 ==

== ENCOUNTER → 2022-03-29 | Outpatient (CLI) | payer MEDICAID, SELFPAY ==
--- NOTE | 2022-03-29 19:08 | US_ITS ---
STUDY: SECOND AND THIRD TRIMESTER OBSTETRICAL ULTRASOUND - LIMITED REASON FOR EXAM: Female, 26 years old. Growth. LMP: Unknown. PRIOR ULTRASOUND: 11/25/2021 and 10/01/2019 TECHNIQUE: Transabdominal TECHNICAL QUALITY: Adequate. FINDINGS: There is a single intrauterine fetus. The fetus is in a cephalic presentation. There is demonstrated cardiac activity with a heart rate of 131 bpm. There is a normal amniotic fluid volume. The largest amniotic fluid pocket measures 8.02 cm. The amniotic fluid index (JOVITA) is 21.68 cm. The placenta is posterior in location and is not low lying. There are Grade 2 placental changes. The cervix is obscured. BIOMETRY: BPD: 9.49 cm: 38 weeks, 5 days HC: 34.99 cm: 40 weeks, 5 days AC: 32.98 cm: 36 weeks, 6 days FL: 7.02 cm: 36 weeks, 0 days age by initial US: 37 weeks, 2 days. ELAINA by initial US: 04/17/2022. age by current US: 38 weeks, 4 days. ELAINA by current US: 04/08/2022. Estimated weight: 3120 grams, +/- 468 grams, 42 percentile. Gender: Indeterminant US/OB Limited With Biometrics IMPRESSION: 1. Live single intrauterine at 38 weeks, 4 days. ELAINA is 04/08/2022. There is adequate interval growth since the initial ultrasound. 2. EFW 3120 g. 3. JOVITA of 21.68 cm. 4. Posterior grade 2 placenta. 5. VERTEX presentation. Electronically Signed: German Prater DO at 20:22 EDT ,
== END | disposition home or self-care (01) ==
LOC: US 18:54
PROVIDERS: PCP Internal Medicine; Referring Provider Obstetrics & Gynecology; Visit Provider Obstetrics & Gynecology
DX: O46.8X2 Other antepartum hemorrhage, second trimester (principal); O09.899 Supervision of other high risk pregnancies, unspecified trimester; O41.8X20 Other specified disorders of amniotic fluid and membranes, second trimester, not applicable or unspecified; Z34.92 Encounter for supervision of normal pregnancy, unspecified, second trimester
CPT/HCPCS: 76816

== ENCOUNTER 2022-04-04 00:57 | Inpatient (IN) | payer MEDICAID, SELFPAY ==
[2022-04-04] VITALS (40 sets, daily range): BP systolic 86–119; BP diastolic 46–77; PULSE 59–114; RESP 16; TEMP 36.4–37.1; O2SAT 92–100; BMI 26.3
--- NOTE | 2022-04-04 01:07 | HP.PCM.OB_ITS ---
HPI - General General Date of Admission: 04/04/22 HPI Narrative BRIT WALTER, is a 26 F who presents IAL 6 cm with regular ctx no vb lof good fm Maternal Data Information ELAINA Calculator Estimated Delivery Date Method Current WG Current Estimate 04/13/22 Ultrasound #1 38w 5d PFSH PFS Medical History Anxiety depression Spontaneous vaginal delivery Home Medications multivitamin no.47-iron fum 27 mg-folate no.1 1 mg-dha 300 mg capsule (PNV-DHA) 1 cap PO DAILY 06/08/20 [History Last Taken 01/24/21 10:00 1] Allergy/AdvReac Type Severity Reaction Status Date / Time gluten AdvReac Upset Verified 03/20/22 08:44 Stomach Family History Brother Diabetes Father Diabetes Social History household members: family housing: house number of children: 2 Smoking Status: Never smoker alcohol intake: current details: social substance use type: does not use what type of physical activity do you participate in: none seatbelt use: always do you feel safe at home: Yes 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 Date Name GA/Weeks Outcome Route Bth Weight Gen Labor Lgth Anesthesia Del Locatn Provider FOB Unknown 02/06/2018- [place] 40 live - full term 8lbs 1oz Female 11 hours epidural [facility] Dennis Casillas 01/26/21 [place] 39 live - full term Male epidur al [facility] GP Delivery Date: Last Updated by: Evelina Rodriguez 7 day post infection - fever ATB x10 days Visit Details Expected Delivery Route/Plan Plans Covid status: discussed Flu vaccine: discussed Tdap vaccine: [] Rhogam: na LARC form signed: yes Problem list reviewed and updated with the most current plan of care details and appropriate orders placed. Relevant counseling for the gestational age provided. Continue routine care and follow up unless otherwise noted in visit notes/problem list details Rony cut cord Epidural ok if needed, last time went too fast Contraception discussed/considering mirena OB Flowsheet Initial Weight: Not Recorded Date -?-?-?-?-?-?-?-?-?-?-?-?- EGA Weight BP Urine Prot -?-?-?-?-?-?-?-?-?-?-?-?- Glucose FHR FuHt Pres Dilation -?-?-?-?-?-?-?-?-?-?-?-?- Effaced St Visit Note 11/07/21 -?-?-?-?-?-?-?-?-?-?-?-?- 17w 4d 146 lb -?-?-?-?-?-?-?-?-?-?-?-?- 150 -?-?-?-?-?-?-?-?-?-?-?-?- SM- no vb crampi ng doing well 12/12/21 -?-?-?-?-?-?-?-?-?-?-?-?- 22w 4d 156 lb 114/60 Negative -?-?-?-?-?-?-?-?-?-?-?-?- Negative 153 -?-?-?-?-?-?-?-?-?-?-?-?- -NO VB, LOF. F eeling movement. MFM US 12/15 to recheck hematoma. 01/09/22 -?-?-?-?-?-?-?-?-?-?-?-?- 26w 4d 161 lb 106/65 Negative -?-?-?-?-?-?-?-?-?-?-?-?- Negative 140 27 -?-?-?-?-?-?-?-?-?-?-?-?- SM- no vb lof go od fm no regular ctx 01/23/22 -?-?-?-?-?-?-?-?-?-?-?-?- 28w 4d 161 lb 6 oz 108/70 Nega tive -?-?-?-?-?-?-?-?-?-?-?-?- Negative 151 28 -?-?-?-?-?-?-?-?-?-?-?-?- MH-No VB, LOF. G ood FM. 28 wk labs and larc 02/06/22 -?-?-?-?-?-?-?-?-?-?-?-?- 30w 4d 163 lb 102/60 Negative -?-?-?-?-?-?-?-?-?-?-?-?- Negative 140 31 -?-?-?-?-?-?-?-?-?--?-?-?- SM- no vb lof go od fm no regular ctx 02/20/22 -?-?-?-?-?-?-?-?-?-?-?-?- 32w 4d 164 lb 2 oz 100/60 Trac e -?-?-?-?-?-?-?-?-?-?-?-?- Negative 150 32 Breech -?-?-?-?-?-?-?-?-?-?-?-?- SM- no vb good f m no regular ctx questionable LOF ROM plus sent. 03/06/22 -?-?-?-?-?-?-?-?-?-?-?-?- 34w 4d 165 lb 103/62 -?-?-?-?-?-?-?-?-?-?-?-?- 145 34 -?-?-?-?-?-?-?-?-?-?-?-?- SM- no vb lof go od fm no regular ctx 03/20/22 -?-?--?-?-?-?-?-?-?-?-?-?- 36w 4d 170 lb 6 oz 104/70 Nega tive -?-?-?-?-?-?-?-?-?-?-?-?- Negative 140 36 Cephalic 2 .5 -?-?-?-?-?-?-?-?-?-?-?-?- 80 -2 JV- no lof , vaginal bleeding, or dec fm. gbs collected. vtx on ultrasound. 03/27/22 -?-?-?-?-?-?-?-?-?-?-?-?- 37w 4d 170 lb 110/75 Negative -?-?-?-?-?-?-?-?-?-?-?-?- Negative 140 37 Cephalic 2 .5 -?-?-?-?-?-?-?-?-?-?-?-?- 70 -2 SM- no vb lof good fm no regular ctx 04/03/22 -?-?-?-?-?-?-?-?-?-?-?-?- 38w 4d 169 lb 109/72 Negative -?-?-?-?-?-?-?-?-?-?-?-?- Negative 140 38 Cephalic 3 .5 -?-?-?-?-?-?-?-?-?-?-?-?- 70 -1 SM- no vb lof good fm no regular ctx SM- no vb lof good fm no reg ular ctx discussed borderline high JOVITA ordered bpp and repeat jovita for end of the week 04/04/22 -?-?-?-?-?-?-?-?-?-?-?-?- 38w 5d -?-?-?-?-?-?-?-?-?-?-?-?- -?-?-?-?-?-?-?-?-?-?-?-?- NST FHR Rate Baby A Baseline: 130 Variability:: Moderate Accelerations:: 15 x 15 Decelerations:: None NST Reactive:: Yes FHR Category:: Category I Uterine Activity:: q3-5 ROS Constitutional Constitutional: Reports systems reviewed and no addt'l complaints, except as documented ENT HEENT: Reports systems reviewed and no addt'l complaints, except as documented Cardiovascular Cardiovascular: Reports systems reviewed and no addt'l complaints, except as documented Respiratory/Chest Respiratory/Chest: Reports systems reviewed and no addt'l complaints, except as documented Gastrointestinal Gastrointestinal: Reports systems reviewed and no addt'l complaints, except as documented and nausea; Denies abdominal pain Genitourinary Genitourinary: Reports systems reviewed and no addt'l complaints, except as documented, contractions Details: present and frequency (regular ) and movement Details: present Musculoskeletal Musculoskeletal: Reports systems reviewed and no addt'l complaints, except as documented Integumentary Integumentary: Reports as per HPI Neurologic Neurologic: Reports systems reviewed and no addt'l complaints, except as documented Endocrine Endocrinology: Reports systems reviewed and no addt'l complaints, except as documented Physical Exam Const alert, oriented x3 and healthy appearing Constitutional Narrative: uncomfortable with contractions HEENT normocephalic and moist oral mucous membranes Head and Scalp: atraumatic Neck full ROM, no lymphadenopathy, supple and thyroid normal General: trachea midline Thyroid: thyroid normal Lymph Lymphatic: no lymphadenopathy noted Chest inspection of chest normal Resp normal respiratory effort Cardio regular rate GI normal to inspection, nondistended, normoactive bowel sounds, soft to palpation and non-tender Inspection: gravid external exam normal Bimanual Exam - Vag & Uterus: uterus non-tender Manual OB Exam: estimated gestational size appropriate, presentation cephalic, dilated, effaced and station Extremity normal to inspection General Extremity: Negative for edema Skin no rashes or lesions noted Neuro deep tendon reflexes 2+ bilaterally Motor Exam: strength 5/5 throughout and clonus absent Psych mental status grossly normal Labs Labs Labs: Blood Type A POSITIVE Antibody Screen NEGATIVE Hct 38.7 % (37-47) Hgb 12.6 g/dL (12.0-15.0) Obstetrics US Syphilis Total Ab Non-reactive Rubella IgG Antibody Reactive (Nonreactive) Hep Bs Antigen Non-Reactive (Nonreactive) Neisseria gonorrhoeae DNA (SWAPNA) Negative HIV 1&2 Antibody Non-Reactive (Nonreactive) Glucose 1 Hr 50 gm 112 mg/dL (70-140) Rhogam given: No Assessment & Plan (1) Polyhydramnios: COMMENT: borderline, ordered repeat JOVITA and bpp, 10/5 nl growth (2) Short interval between pregnancies affecting , antepartum: (3) : QUALIFIERS: Weeks of gestation: 38 weeks Qualified Code(s): Z3A.38 - 38 weeks gestation of COMMENT: GBS Negative, nipt, ntd, and carrier declined. Anatomy US normal (4) Supervision of normal : COMMENT: PRR ELAINA 04/13/22 boy Trae Fernandez Rony (5) Abnormal Pap smear of cervix: QUALIFIERS: Abnormal Pap type: unspecified Qualified Code(s): R87.619 - Unspecified abnormal cytological findings in specimens from cervix uteri COMMENT: repeat pap PP (6) Active labor at term: PLAN: Plan Patient presents IAL, plan expectant management for , pitocin/AROM PRN if needed. Pain management: plans epidural. GBS neg. Management of any complications: none I have reviewed the [facility] and made any clinically relevant updates.
[2022-04-04] MEDS: LACTATED RINGERS 500 ML 999 ML IV ×2 (01:18→03:24)
[2022-04-04 01:45] LABS: Absolute Lymphocyte Count 2.12 X10^3/uL (0.83-4.51); Absolute Neutrophil Count 11.4 X10^3/uL (2.0-7.7); Basophil# 0.04 X10^3/uL; Basophil% 0.3 % (0-1); Eosinophils% 0.7 % (0-5); Hematocrit 34.5 % (37-47); Hemoglobin 11.1 g/dL (12.0-15.0); Lymphocyte # 2.12 X10^3/ul (0.83-4.51); Lymphocyte % 14.1 % (19-41); Mean Corp Hgb Conc 32.2 g/dL (32-36); Mean Corpuscular Hgb 28.4 pg (27.0-32.0); Mean Corpuscular Volume 88.2 fL (81-99); Mean Platelet Vol. 9.7 fl (6.2-12.0); Monocyte# 1.25 X10^3/uL; Monocyte% 8.3 % (0-10); NRBC Flagged by Analyzer 0 % (0-5); Neutrophil # 11.41 X10^3/uL (2.7-7.7); Neutrophil % 76.1 % (47-70); Platelet Count 331 K/mm3 (150-450); RBC Distribution Width CV 12.9 % (11.6-14.6); RBC Distribution Width SD 40.8 fl (35.1-43.9); Red Blood Count 3.91 M/mm3 (4.2-5.4)
[2022-04-04] MEDS: Lactated Ringers 1,000 ML 200 ML IV (01:50)
[2022-04-04] MEDS: fentaNYL-bupivacaine (epidural) 100 ML BAG EPIDURAL (04:10)
[2022-04-04] MEDS: Oxytocin 10 UNITS/ML Vial IM (06:21)
--- NOTE | 2022-04-04 06:42 | OP.PCM_ITS ---
Maternal Data Information ELAINA Calculator Estimated Delivery Date Method Current Current Estimate 04/13/22 Ultrasound #1 38w 5d Vaginal Delivery Operative Information Date of Procedure: 04/04/22 Pre-Operative Diagnosis: IAL Post-Operative Diagnosis: same Surgery / Procedure Performed: Spontaneous Vaginal Delivery Type of Anesthesia: Epidural Special Medications: none Estimated Blood Loss: 100 Fluids Replaced: crystalloid Findings Description of Procedure: Patient began pushing and delivered the head in the RICKY presentation. The head was delivered atraumatically and a loose nuchal cord ?1 was identified and the delivered through without complication. The anterior and posterior shoulders delivered without complication followed by the rest of the and the was placed on the maternal abdomen. Delayed cord clamping was employed for approximately 60 seconds. Cord was clamped and cut and gentle traction was applied to the cord and the placenta delivered spontaneously immediately following it was noted to be intact with three-vessel cord. The perineum and vagina were inspected and noted to have no laceration. EBL was 100 cc. Patient and infant tolerated delivery well. Presentation: RICKY Amniotic Membrane Rupture Type: Artificial Amniotic Fluid Description: Clear Placental Delivery Description: Spontaneous Placenta Disposition: [facility] Cord Vessel Description: 3 Vessels Cord Entanglement: None Delayed Cord Clamping: Yes Post Vaginal Delivery Medications Given After Delivery: IV Pitocin Episiotomy Description: None Laceration: None Complication Complications: None Procedures Urinary/Genital [id number]: [id number] Vaginal Delivery+ Care([facility])
--- NOTE | 2022-04-04 06:45 | DCINST_ITS ---
Discharge Instructions Diet Discharge Diet: No restrictions Activity Discharge Activity: Return to Normal Activity, May Drive, May Shower and May Take a Tub Bath (in 4 weeks) May resume sexual activity in: 6-8 weeks (after seen by OB provider) Weight Bearing Status: Full weight bearing Lifting Restrictions: none Dressing / Incision Call your doctor if you observe: Fever of 101 or Higher, Inability to urinate, Using more than 1 pad per hour (for more than 2 hours in a row or more), Shortness of breath, Dizziness, Chest pain and - (headache not controlled with tylenol, change in vision) Follow Up Care When: in 6 weeks for visit, call the office to make the appointment. If you had elevated blood pressures call the office to be seen within 1 week. Test Results: Test results from this visit will be discussed in further detail at your follow- up appointment, if applicable. Discharge Plan Admission Admit Date/Time: 04/04/22 00:57 Attending Provider: Zayra Marquez Primary Care Provider: Jacqueline Blanco Discharge Orders/Prescriptions Prescriptions: No Action PNV-DHA 27 mg iron-1 mg -300 mg capsule 1 cap PO DAILY Referrals / Follow Up: Jacqueline Blanco DO [Primary Care Provider] - Disposition Disposition (needs filled in before D/C Order can be placed): Home, Self Care
[2022-04-04] MEDS: Naproxen 500 MG Tablet PO ×2 (07:35→14:45)
[2022-04-04] MEDS: Acetaminophen 500 MG Tablet 1000 MG PO ×3 (11:10→22:30)
[2022-04-05 00:45] VITALS: BP 105/58; PULSE 61; RESP 16; TEMP 36.6; O2SAT 95
[2022-04-05 03:50] VITALS: BP 94/57; PULSE 60; RESP 16; TEMP 36.6; O2SAT 96
[2022-04-05] MEDS: Naproxen 500 MG Tablet PO (03:59)
--- NOTE | 2022-04-05 08:22 | PCM.PN.OB ---
Subjective Subjective Patient doing well without complaints. Tolerating PO. Ambulating and voiding without difficulty. Feeding well. Denies chest pain, shortness of breath, calf pain/swelling, fevers, chills, lightheadedness. Objective Data Objective Data Vital Signs: Vital Signs Temp Pulse Resp BP Pulse Ox O2 Del Method 97.9 F 60 16 94/57 L 96 Room Air 04/05/22 03:50 04/05/22 03:50 04/05/22 03:50 04/05/22 03:50 04/05/22 03:50 04/05/22 03:50 Oxygen Delivery Method Room Air Weight: 170 lb 12.8 oz Body Mass Index (BMI) 26.3 Intake & Output: Intake and Output for Last 24 Hours 04/03/22 04/04/22 04/05/22 23:59 23:59 23:59 Intake Total 1833.33 / 1833.33 Balance 1833.33 / 1833.33 Lab / Micro Data Result Diagrams: 04/04/22 01:15 Physical Exam Const alert and oriented x3 HEENT normocephalic Eyes PERRL Neck full ROM Resp normal respiratory effort GI soft to palpation GI Narrative: FF below U Assessment & Plan (1) Vaginal delivery: COMMENT: SM 38 IAL boy Walker PLAN: Plan s/p PPD # 1 1. routine post delivery care 2. breast feeding- support given 3. rh positive 4. rubella immune 5. home today
[2022-04-05 08:30] VITALS: BP 102/60; PULSE 83; RESP 16; TEMP 36.4; O2SAT 95
[2022-04-05 10:00] VITALS: BP 110/63; PULSE 77; RESP 16; TEMP 36.6; O2SAT 95
[2022-04-05] MEDS: Acetaminophen 500 MG Tablet 1000 MG PO (11:15)
[2022-04-05 11:38] VITALS: BP 110/63; PULSE 77; RESP 16; TEMP 36.6; O2SAT 95
--- NOTE | 2022-04-05 11:46 | NURSING ---
reviewed student nurse DW charting that is used for learning and educational purposes.
== END 2022-04-05 11:35 | disposition home or self-care (01) | DRG 807 ==
LOC: WPOUT 00:59 → WP 00:59
PROVIDERS: Admitting Provider Obstetrics & Gynecology; PCP Internal Medicine; Visit Provider Obstetrics & Gynecology
DX: O69.81X0 Labor and delivery complicated by cord around neck, without compression, not applicable or unspecified (principal); Z37.0 Single live birth; O40.3XX0 Polyhydramnios, third trimester, not applicable or unspecified; Z3A.38 38 weeks gestation of pregnancy
CPT/HCPCS: 59025; 59050; 85025; 86850; 86900; 86901; 99218; J7120; G0378

== ENCOUNTER → 2022-04-20 | Outpatient (CLI) | payer MEDICAID, SELFPAY | END | disposition home or self-care (01) | LOC: LABSPEC 14:26 | PROVIDERS: PCP Internal Medicine; Visit Provider Nurse Practitioner Women's Health | DX: R30.0 Dysuria (principal) | CPT/HCPCS: 87086 ==

== ENCOUNTER 2022-05-15 11:50 | Outpatient (CLI) | payer MEDICAID, SELFPAY ==
[2022-05-24 13:37] LABS: HPV Reflexed? NOT INDICATED
== END 2022-05-15 23:59 | disposition home or self-care (01) ==
LOC: LABSPEC 11:51
PROVIDERS: PCP Internal Medicine; Referring Provider Obstetrics & Gynecology; Visit Provider Obstetrics & Gynecology
DX: Z12.4 Encounter for screening for malignant neoplasm of cervix (principal)
CPT/HCPCS: 88175; G0145

== ENCOUNTER → 2023-01-06 | Outpatient (CLI) | payer OTHER, SELFPAY ==
[2023-01-06 14:01] LABS: hCG Titer Quant., Serum 8457 mIU/mL (1-3)
== END | disposition home or self-care (01) ==
LOC: LAB 13:01
PROVIDERS: PCP Internal Medicine; Visit Provider Obstetrics & Gynecology
DX: N91.2 Amenorrhea, unspecified (principal)
CPT/HCPCS: 36415; 84702

== ENCOUNTER → 2023-01-08 | Outpatient (CLI) | payer OTHER, SELFPAY ==
[2023-01-08 13:46] LABS: hCG Titer Quant., Serum 14821 mIU/mL (1-3)
== END | disposition home or self-care (01) ==
LOC: LAB 12:11
PROVIDERS: PCP Internal Medicine; Referring Provider Obstetrics & Gynecology; Visit Provider Obstetrics & Gynecology
DX: N91.2 Amenorrhea, unspecified (principal)
CPT/HCPCS: 36415; 84702

== ENCOUNTER → 2023-01-19 | Outpatient (CLI) | payer OTHER, SELFPAY ==
--- NOTE | 2023-01-19 08:04 | US_ITS ---
STUDY: FIRST TRIMESTER OBSTETRICAL ULTRASOUND REASON FOR EXAM: Female, 27 years old dating LMP: Unknown. TECHNIQUE: Transvaginal TECHNICAL QUALITY: Adequate. PRIOR ULTRASOUND: None. FINDINGS: There is visualization of a single gestational sac in a normal intrauterine position. The mean sac diameter (MSD) measures 2.58 cm, indicating an estimated gestational age (EGA) of 7 weeks, 4 days. The gestational sac shape is within normal limits. There is a visualized yolk sac. The yolk sac measures 3.6 mm. The placenta is non-visualized. There is visualization of a live embryo. The crown-rump length (CRL) measures 1.13 cm, indicating an estimated gestational age (EGA) of 7 weeks, 2 days. There is demonstrated cardiac activity with a heart rate of 138 bpm. The estimated gestation age (EGA) by US is 7 weeks, 3 days. The estimated date of delivery (ELAINA) by US is September 04, 2023. The uterus measures 10 cm x 9.1 cm x 7 cm. There is no demonstrated uterine fibroid. The cervix is closed. The right ovary measures 2.6 cm x 2.6 x 1.7 cm. There is no right ovarian cyst. There is no visualized right adnexal mass or complex lesion. The left ovary is not visualized. There is no fluid in the cul de sac. US/Transvaginal w/Preg US IMPRESSION: Single live uterine gestation with mean gestational age of 7 weeks and 3 days. Electronically Signed: Torito Jordan MD at 11:13 EDT ,
== END | disposition home or self-care (01) ==
LOC: OPUS 08:03
PROVIDERS: PCP Internal Medicine; Referring Provider Nurse Practitioner Women's Health; Visit Provider Nurse Practitioner Women's Health
DX: N91.2 Amenorrhea, unspecified (principal)
CPT/HCPCS: 76817

== ENCOUNTER 2023-02-05 19:14 | Emergency (ER) | payer OTHER, SELFPAY ==
[2023-02-05 19:15] VITALS: BP 102/69; PULSE 80; RESP 18; TEMP 36.6; O2SAT 100; BMI 21.7
--- NOTE | 2023-02-05 19:36 | EDS_ITS ---
HPI HPI - GI History of Present Illness Chief Complaint: Abd Pain Detail of Chief Complaint: Nausea vomiting diarrhea. First trimester . Informant: spouse/S.O. Abdominal Pain/Flank Pain Onset: Hours Context: Gradual Onset Timing: Intermittent Quality: Cramping Location: - (Suprapubic.) Current Severity: Mild Maximum Severity: Mild Worsened by: Nothing Relieved by: Nothing Nausea/Vomiting/Emesis GI Symptom: Positive for Nausea and Vomiting Onset: Days Severity: Mild Diarrhea/Melena/Hematochezia GI Symptom: Positive for Diarrhea; Negative for Melena or Hematochezia Onset: Days Stool Quality: Positive for Loose Severity: Mild Associated Symptoms Associated Symptoms: Negative for Dysuria, Frequency, Hematuria or Urgency Narrative Narrative: 27-year-old female G5, P3 Ab1 with having a miscarriage. Currently 9 weeks 6 days no care as of yet. She plans to follow-up with Dr. Zayra Marquez. Patient had an ultrasound showing a single live IUP at 7 weeks and 3 days just over 2 weeks ago. States 3 days ago started having nausea vomiting diarrhea. Subjective fever. No dysuria. Decreased oral intake the last 3 to 4 days. No vaginal bleeding. No right upper or right lower quadrant pain. No prior abdominal surgeries. Prior similar symptoms: Yes Recent Illness/Hospitalization: No PFSH PFSH Medical History Anxiety depression Spontaneous vaginal delivery Home Medications multivitamin no.47-iron fum 27 mg-folate no.1 1 mg-dha 300 mg capsule (PNV-DHA) 1 cap PO DAILY 06/08/20 [History Last Taken 04/03/22 08:00] etonogestrel 0.12 mg-ethinyl estradiol 0.015 mg/24 hr vaginal ring (NuvaRing) 1 vag ring vaginal ONCE 3 weeks #1 ea 05/15/22 [Rx Last Taken Unknown] ondansetron 4 mg disintegrating tablet 4 mg PO Q6H PRN nausea and vomiting #10 tabs 02/05/23 [Rx Last Taken Unknown] Allergy/AdvReac Type Severity Reaction Status Date / Time gluten AdvReac Upset Verified 02/05/23 19:15 Stomach Family History Brother Diabetes Father Diabetes Social History household members: family housing: house number of children: 2 Smoking Status: Never smoker alcohol intake: current details: social substance use type: does not use what type of physical activity do you participate in: none seatbelt use: always do you feel safe at home: Yes 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 No pain. Review of Systems ROS Unobtainable: Denies due to encephalopathy Constitutional Constitutional ED: Reports fever(s) and subjective; Denies chills ENT ENT ED: Denies ear pain Cardiovascular Cardiovascular: Denies chest pain Respiratory/Chest Respiratory/Chest: Denies cough or dyspnea Gastrointestinal Gastrointestinal: Reports abdominal pain, diarrhea, nausea and vomiting; Denies constipation or melena Genitourinary Genitourinary ED: Denies dysuria or hematuria Musculoskeletal Musculoskeletal: Denies arthralgias Integumentary Denies abscess Neurologic Neurologic: Denies headache(s) Psychiatric Psychiatric: Denies anxiety or depression Hematologic/Lymphatic Hematologic/Lymphatic: Denies easy bleeding or easy bruising Allergic/Immunologic Allergic/Immunologic ED: Denies mouth swelling EXAM Physical Exam Narrative Exam Narrative: No renalTwin A female vital signs stable afebrile does not look septic toxic. No distress. at bedside. H EENT exam mild diabetes mellitus. Neck nontender no lymphadenopathy. Lungs clear to auscultation bilaterally. Heart regular rhythm rate about 80 no murmur. Chest wall nontender. Abdomen soft nondistended normal bowel sounds no peritoneal signs. Mild suprapubic tenderness. Guarding rigidity. Right upper and right lower quadrants are unremarkable. No McBurney's point tenderness. Moving all 4 extremities. Calves are nontender without edema or cords. Neurological she is awake and alert. Benign abdominal exam. Const Vital Signs: 02/05/23 19:15 Temperature 97.9 F Temperature Source Temporal Pulse Rate 80 Respiratory Rate 18 Blood Pressure 102/69 Blood Pressure Mean 80 Pulse Ox 100 Positive well nourished and well developed; Negative for obese, cachectic, contractures or unkempt General Appearance ED: well developed and NAD; Negative for unkempt, cachectic, contractures or pallor Nutritional Appearance: Negative for cachectic or obese HEENT Reports dry mucous membranes; Denies moist mucous membranes normocephalic and atraumatic; Negative for trauma or tenderness Mouth ED: Yes dry mucous membranes Mouth: dry mucous membranes Eyes PERRL and EOMs intact bilaterally General Eye ED: Negative for pale conjunctiva or scleral icterus Neck no lymphadenopathy, supple and no JVD General: Negative for tenderness Carotids: Negative for other Lymph Lymphatic: Negative for other Resp normal respiratory effort and clear to auscultation bilaterally Effort and Inspection: Negative for respiratory distress Auscultation: Negative for rales, rhonchi or wheezes Cardio regular rate, regular rhythm, S1 normal heart sound, S2 normal heart sound and no murmurs Rate: Negative for bradycardia or tachycardic Rhythm: Negative for abnormal rhythm GI non-distended and no masses; Negative for non-tender GI Narrative: Suprapubic tenderness only. No peritoneal signs. No right upper or right lower quadrant tenderness. Inspection: Negative for abdominal distention Auscultation: normoactive bowel sounds Palpation: soft and tender; Negative for guarding, rigid, hepatomegaly, splenomegaly, hernia, mass, pulsatile mass or rebound tenderness present Back/Spine no CVA tenderness General Back: Negative for CVA tenderness Cervical Spine: Negative for cervical spine tenderness Thoracic Spine / Upper Back: Negative for thoracic spinal tenderness Lumbar Spine / Lower Back: Negative for lumbar spinal tenderness Coccyx: Negative for other Extremity General Extremety ED: Negative for edema or tenderness General Extremity: Negative for edema Neuro CN's II-XII intact bilaterally and moves all extremities Sensorium / Orientation: alert, oriented to person, oriented to place and oriented to time; Negative for orientation impaired or confused Motor Exam: strength 5/5 throughout Psych mental status grossly normal and thought process normal Appearance: Negative for unkempt Attitude: No agitated Mood & Affect: Negative for depressed, anxious or tearful Skin no wounds General Skin Exam: Negative for jaundice or pallor Lesions: no lesions Rashes: no rashes Trauma: Negative for abrasion Nails: Negative for discolored MDM MDM MDM Narrative Medical decision making narrative: Three 7-year-old female 9+ weeks . Complaining of nausea, vomiting diarrhea. Is likely viral syndrome. Rule out UTI. Mildly dehydrated treated with IV fluids and Zofran. Screening labs obtained. She recently had an ultrasound she has a known IUP. Repeat exam at 10 PM patient doing well. Abdomen nontender. She is feeling much improved after a liter normal saline. And Zofran. They will be discharged home. Treated as a viral gastroenteritis. Prescription for Zofran. History & Record Review Discussion w/independent historian: Patient and Significant other Additional record(s) reviewed:: Prior inpatient record, Prior outpatient record and Prior ED visit Lab Data Attestation: I reviewed the patient's lab results. Lab results narrative: CBC unremarkable. White count 9.5. H&H 13 and 41. Electrolytes unremarkable gap is 7. Normal BUN is 6 creatinine 0.5. Glucose 102. Liver enzymes normal. Lipase normal at 38. Urinalysis unremarkable. No nitrates. No white or red cells. Only rare bacteria. Urine ketones secondary to dehydration. Labs: Laboratory Results - last 24 hr 02/05/23 02/05/23 19:48 20:35 WBC 11.5 H RBC 4.60 Hgb 13.5 Hct 41.4 MCV 90.0 MCH 29.3 MCHC 32.6 RDW Std Deviation 43.5 RDW Coeff of Christopher 13.2 Plt Count 356 MPV 8.9 Immature Gran % (Auto) 0.400 Neut % (Auto) 75.6 H Lymph % (Auto) 14.7 L Hooker % (Auto) 8.1 Eos % (Auto) 0.9 Baso % (Auto) 0.3 Absolute Neuts (auto) 8.7 H Absolute Lymphs (auto) 1.70 Nucleated RBC % 0 Sodium 136 Potassium 3.6 Chloride 106 Carbon Dioxide 23.0 Anion Gap 7 BUN 6 L Creatinine 0.58 Estim Creat Clear Calc 144.37 Est GFR (MDRD) Af Amer 158 Est GFR (MDRD) Non-Af 131 BUN/Creatinine Ratio 10.4 Glucose 102 Calcium 9.1 Total Bilirubin 0.20 AST 14 L ALT 21 Alkaline Phosphatase 31 L Total Protein 7.9 Albumin 3.3 Globulin 4.6 H Albumin/Globulin Ratio 0.7 L Lipase 38 Urine Color Yellow Urine Clarity Clear Urine pH 5.0 Ur Specific [place] 1.025 Urine Protein Negative Urine Glucose (UA) Normal Urine Ketones 150 A* Urine Occult Blood 25 H Urine Nitrite Negative Urine Bilirubin Negative Urine Urobilinogen Normal Ur Leukocyte Esterase 25 H Urine RBC 0 SEEN Urine WBC 0-5 SEEN Ur Squamous Epith Cells 0-5 SEEN Urine Bacteria RARE Urine Mucus RARE Discharge Plan Triage Chief Complaint: Abd Pain ED Provider: Sherwin Stafford Dx/Rx/DC Orders Clinical Impression: Acute dehydration, Viral gastroenteritis, First trimester Instructions: 1st Trimester, ED Dehydration (Adult), ED Gastroenteritis, Viral (Adult) Prescriptions: New ondansetron 4 mg tablet,disintegrating 4 mg PO Q6H PRN (Reason: nausea and vomiting) Qty: 10 0RF No Action PNV-DHA 27 mg iron-1 mg -300 mg capsule 1 cap PO DAILY etonogestrel-ethinyl estradiol [NuvaRing] 0.12-0.015 mg/24 hr ring 1 vag ring vaginal ONCE 21 Days Qty: 1 12RF Primary Care Provider: Jacqueline Blanco Referrals: Jacuqeline Blanco, [Primary Care Provider] - As Needed Activity Restrictions/Additional Instructions: Plenty of fluids and rest. Slowly increase your diet as tolerated Zofran as needed for nausea. 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 Return if feeling worse. Your labs tonight all look good. Disposition Disposition: Home, Self Care
[2023-02-05] MEDS: 0.9% Normal Saline 1,000 ML 1000 ML IV (19:47)
[2023-02-05] MEDS: Ondansetron 4 MG/2 ML Vial IV (19:47)
[2023-02-05 20:18] LABS: Absolute Neutrophil Count 8.7 X10^3/uL (2.0-7.7); Basophil# 0.04 X10^3/uL; Basophil% 0.3 % (0-1); Eosinophils% 0.9 % (0-5); Hematocrit 41.4 % (37-47); Hemoglobin 13.5 g/dL (12.0-15.0); Lymphocyte % 14.7 % (19-41); Mean Corp Hgb Conc 32.6 g/dL (32-36); Mean Corpuscular Hgb 29.3 pg (27.0-32.0); Mean Platelet Vol. 8.9 fl (6.2-12.0); Monocyte# 0.94 X10^3/uL; Monocyte% 8.1 % (0-10); NRBC Flagged by Analyzer 0 % (0-5); Neutrophil # 8.71 X10^3/uL (2.7-7.7); Neutrophil % 75.6 % (47-70); Platelet Count 356 K/mm3 (150-450); RBC Distribution Width CV 13.2 % (11.6-14.6); RBC Distribution Width SD 43.5 fl (35.1-43.9); White Blood Count 11.5 K/mm3 (4.4-11.0)
[2023-02-05 20:35] LABS: ALB/GLOB Ratio 0.7 RATIO (0.9-2.4); AST(SGOT) 14 U/L (15-37); Alanine Aminotransfer ALT/SGPT 21 U/L (13-56); Albumin, Serum 3.3 g/dL (3.2-5.0); Alkaline Phosphatase 31 U/L (45-117); Anion Gap 7 (5-15); BUN 6 mg/dL (7-18); BUN/Creat Ratio 10.4 RATIO (10-20); Calcium,Total 9.1 mg/dL (8.5-10.1); Chloride 106 mmol/L (98-107); Creatinine, Serum 0.58 mg/dL (0.55-1.02); EST Glomerular Filtration Rate 131 mL/min (>60); Est Glom Filt Rate - Afr Amer 158 mL/min (>60); Estimated Creatinine Clearance 144.37 ml/min; Globulin 4.6 g/dL (2.2-4.2); Glucose 102 mg/dL (74-106); Lipase 38 U/L (13-75); Potassium 3.6 mmol/L (3.5-5.1); Protein, Total 7.9 g/dL (6.4-8.2); Sodium Level 136 mmol/L (136-145)
[2023-02-05 20:44] LABS: Red Blood Cells-Urine 0 SEEN /hpf (0-5)
[2023-02-05 20:46] LABS: Color, Urine Yellow (Yellow); Glucose, Dipstick Normal (Normal); Leukocyte Esterase-Dipstick 25 /ul (Negative); Nitrite-Dipstick Negative (Negative); Occult Blood-Urine 25 /ul (Negative); Protein-Dipstick Negative (Negative); Specific Gravity, Urine 1.025 (1.002-1.030); Urine Bilirubin Dipstick Negative (Negative); Urine Clarity Clear (Clear); Urine Urobilinogen Normal (Normal)
[2023-02-05 20:49] LABS: Ketone-Dipstick 150 mg/dl (Negative)
[2023-02-05 20:53] LABS: Bacteria RARE /hpf (None Seen); Mucous, Urine RARE /hpf (<or=2+); Squamous Epithelial Cells - UA 0-5 SEEN /hpf (5-10); White Blood Cells 0-5 SEEN /hpf (0-5)
[2023-02-05 22:32] VITALS: BP 110/68; PULSE 71; RESP 18; O2SAT 100
== END 2023-02-05 22:33 | disposition home or self-care (01) ==
PROVIDERS: Emergency Provider Emergency Medicine; PCP Internal Medicine; Visit Provider Emergency Medicine
DX: O98.811 Other maternal infectious and parasitic diseases complicating pregnancy, first trimester (principal); Z3A.09 9 weeks gestation of pregnancy; O99.281 Endocrine, nutritional and metabolic diseases complicating pregnancy, first trimester; A08.4 Viral intestinal infection, unspecified; E86.0 Dehydration
CPT/HCPCS: 80053; 81001; 83690; 85025; 96361; 96374; 99283; J2405

== ENCOUNTER → 2023-02-13 | Outpatient (CLI) | payer OTHER, SELFPAY ==
[2023-02-14 21:07] LABS: Chlamydia By Nucleic Acid AMP Negative (Negative); Gonococcus By Nucleic Acid AMP Negative (Negative)
== END | disposition home or self-care (01) ==
LOC: LABSPEC 11:30
PROVIDERS: PCP Internal Medicine; Referring Provider Advanced Practice Midwife; Visit Provider Advanced Practice Midwife
DX: Z34.90 Encounter for supervision of normal pregnancy, unspecified, unspecified trimester (principal)
CPT/HCPCS: 87086; 87491; 87591

== ENCOUNTER → 2023-04-13 | Outpatient (CLI) | payer OTHER, SELFPAY ==
--- NOTE | 2023-04-13 08:00 | US_ITS ---
INDICATION: anatomy EXAMINATION: Ultrasound US OB Greater Than 14 Weeks TECHNIQUE: Transabdominal pelvic ultrasound was performed. COMPARISON: Prior study dated: 01/11/2023 LMP: 12/07/2022 Beta-hCG: Unknown. Provided EGA: None. FINDINGS: INTRAUTERINE GESTATION(s): Single. HEART MOTION is 152 bpm. BIOMETRIC MEASUREMENTS: HEAD CIRCUMFERENCE: 17 cm which corresponds to 19 weeks and 4 days. BIPARIETAL DIAMETER: 4.4 cm which corresponds to 19 weeks and 4 days. ABDOMINAL CIRCUMFERENCE: 14.1 cm which corresponds to 19 weeks and 3 days. FEMORAL LENGTH: 3 cm which corresponds to 19 weeks and 1 day. ESTIMATED DUE DATE (ELAINA): 09/05/2023 ESTIMATED WEIGHT: 287 g +/- 43 g, 31%tile PRESENTATION: Breech AMNIOTIC FLUID INDEX (JOVITA): Within normal limits but not measured. MVP: 4.5 cm BIOPHYSICAL PROFILE (BPP): Not assessed. PLACENTA: Anterior. There is no placenta previa or abruption. CERVIX: The cervix is closed measuring 3.6 cm in length. MATERNAL OVARIES: Not seen. FREE FLUID: None. ANATOMY: LATERAL VENTRICLES: Visualized. CHOROID PLEXUS: Visualized. MIDLINE FALX: Visualized. CAVUM SEPTUM PELLUCIDI: Not visualized CEREBELLUM: Unremarkable CISTERNA MAGNA: Visualized measuring 5 mm. UPPER LIP: Intact. FOUR CHAMBER HEART VIEW: Unremarkable. STOMACH: Visualized. KIDNEYS: Visualized, no hydronephrosis. URINARY BLADDER: Visualized. UMBILICAL CORD INSERTION into the abdomen: Unremarkable. UMBILICAL CORD vessel number: Normal three vessel cord. SPINE: Unremarkable. No posterior spinal defect observed. UPPER AND LOWER EXTREMITIES: Present. GENDER: Not assessed. IMPRESSION: Single live intrauterine in breech presentation with an estimated gestational age of 19 weeks and 2 days. The ELAINA is 09/05/2023 Electronically Signed: Douglas Solano MD at 10:26 EDT , INDICATION: anatomy EXAMINATION: Ultrasound US OB Greater Than 14 Weeks TECHNIQUE: Transabdominal pelvic ultrasound was performed. COMPARISON: Prior study dated: 01/11/2023 LMP: 12/07/2022 Beta-hCG: Unknown. Provided EGA: None. FINDINGS: INTRAUTERINE GESTATION(s): Single. HEART MOTION is 152 bpm. BIOMETRIC MEASUREMENTS: HEAD CIRCUMFERENCE: 17 cm which corresponds to 19 weeks and 4 days. BIPARIETAL DIAMETER: 4.4 cm which corresponds to 19 weeks and 4 days. ABDOMINAL CIRCUMFERENCE: 14.1 cm which corresponds to 19 weeks and 3 days. FEMORAL LENGTH: 3 cm which corresponds to 19 weeks and 1 day. ESTIMATED DUE DATE (ELAINA): 09/05/2023 ESTIMATED WEIGHT: 287 g +/- 43 g, 31%tile PRESENTATION: Breech AMNIOTIC FLUID INDEX (JOVITA): Within normal limits but not measured. MVP: 4.5 cm BIOPHYSICAL PROFILE (BPP): Not assessed. PLACENTA: Anterior. There is no placenta previa or abruption. CERVIX: The cervix is closed measuring 3.6 cm in length. MATERNAL OVARIES: Not seen. FREE FLUID: None. ANATOMY: LATERAL VENTRICLES: Visualized. CHOROID PLEXUS: Visualized. MIDLINE FALX: Visualized. CAVUM SEPTUM PELLUCIDI: Not visualized CEREBELLUM: Unremarkable CISTERNA MAGNA: Visualized measuring 5 mm. UPPER LIP: Intact. FOUR CHAMBER HEART VIEW: Unremarkable. STOMACH: Visualized. KIDNEYS: Visualized, no hydronephrosis. URINARY BLADDER: Visualized. UMBILICAL CORD INSERTION into the abdomen: Unremarkable. UMBILICAL CORD vessel number: Normal three vessel cord. SPINE: Unremarkable. No posterior spinal defect observed. UPPER AND LOWER EXTREMITIES: Present. GENDER: Not assessed. US/OB Anatomy Scan
== END | disposition home or self-care (01) ==
PROVIDERS: PCP Internal Medicine; Referring Provider Advanced Practice Midwife; Visit Provider Advanced Practice Midwife
DX: Z34.90 Encounter for supervision of normal pregnancy, unspecified, unspecified trimester (principal)
CPT/HCPCS: 76805; 76817

== ENCOUNTER → 2023-06-05 | Outpatient (CLI) | payer OTHER, SELFPAY ==
[2023-06-05 11:09] LABS: Glucose Challenge Gest 1H 50g 79 mg/dL (70-140)
== END | disposition home or self-care (01) ==
LOC: LAB 10:07
PROVIDERS: Obstetrics & Gynecology; PCP Internal Medicine; Referring Provider Advanced Practice Midwife; Visit Provider Advanced Practice Midwife
DX: Z34.90 Encounter for supervision of normal pregnancy, unspecified, unspecified trimester (principal)
CPT/HCPCS: 36415; 82950

== ENCOUNTER → 2023-08-08 | Outpatient (CLI) | payer OTHER, SELFPAY ==
--- OUTSIDE RECORDS SUMMARY | 2023-08-08 10:58 | XMS RPT_ITS | CCD ---
Author Name Unknown Address [address] [place] [address] Organization [facility] Care Team Providers Care Patient Scheduling Coordinator Name Role Phone Jacqueline Blanco Unavailable Juno Harrell Unavailable Unavailable GravJuanita vicente Unavailable Unavailable Mary Kent Unavailable Unavailable Kalpesh, Gunnison Unavailable Unavailable Keisha Matthews Unavailable Unavailable Unavailable Unavailable Jacqueline Blanco Attending Unavailable Jacqueline Blanco Referring Unavailable Jacqueline Blanco Consulting Unavailable Juno Harrell Unavailable Unavailable Jacqueline Blanco DO Unavailable Keisha Matthews RN Unavailable Unavailable Mary Kent RN Unavailable Unavailable Emchristal, Salas Unavailable Unavailable Unavailable Unavailable Jacqueline Blanco DO Unavailable Kate Mackenzie Unavailable Juno Cho LPN Unavailable Unavailable Hanna Hinkle Unavailable Allergies Allergy Classification Reported Allergen(s) Allergy Type Date of Onset Reaction(s) Facility (8 sources) wheat gluten allergy to substance [facility] Work Phone: Medications Completed/Discontinued Medications Medication Drug Class(es) Dates Sig (Normalized) Sig (Original) amoxicillin 875 mg / clavulanate 125 mg oral tablet (8 sources) Penicillin-class Antibacterial Start: 04-09-2017 End: 04-12-2017 take 1 tablet by mouth twice daily Augmentin 875-125 MG Oral Tablet 1 (one) Tablet bid for 10 days Quantity: 20 {Tablet} Refills: 0 Ordered: 12-Apr-2017 Mary Kent RN Start : 09-Apr-2017 End : 12-Apr-2017 Inactive bifidobacterium infantis 4 mg oral capsule (8 sources) Start: 05-23-2016 End: 08-04-2016 take 1 capsule by mouth once daily Align 4 MG Oral Capsule 1 (one) Capsule daily for 0 days Quantity: 30 {Capsule} Refills: 0 Ordered: 04-Aug-2016 Salas Posey Start : 23-May-2016 End : 04-Aug-2016 Inactive brompheniramine maleate 0.4 mg/ml / dextromethorphan hydrobromide 2 mg/ml / pseudoephedrine hydrochloride 6 mg/ml oral solution (8 sources) alpha-Adrenergic Agonist, Uncompetitive O-ttfssf-D-aspartat e Receptor Antagonist, Sigma-1 Agonist Start: 05-23-2016 End: 08-04-2016 take 10 mL by mouth every four hours as needed for cough Bromfed DM 30-2-10 MG/5ML Oral Syrup 10 Milliliter q4hr prn for cough for 0 days Quantity: 120 {Milliliter} Refills: 0 Ordered: 04-Aug-2016 Kalpesh Salas Start : 23-May-2016 End : 04-Aug-2016 Inactive Comments: Not more than 40ml/day Problems Active Problems Problem Classification Problem Date Documented Da te Episodic/Chronic Abdominal pain (20 sources) Right lower quadrant pain; Translations: [Epigastric pain] Resolved: 04-09-2017 01-27-2016 Episodic Anxiety disorders (16 sources) Anxiety; Translations: [Anxiety] 08-01-2018 Chronic Fluid and electrolyte disorders (14 sources) Dehydration; Translations: [Dehydration] 04-24-2019 Episodic Genitourinary symptoms and ill-defined conditions (16 sources) Increased frequency of urination; Translations: [Urinary symptoms ] Resolved: 01-27-2016 01-27-2016 Episodic Headache; including migraine (20 sources) Migraine; 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 Past or Other Problems Problem Classification Problem Date Documented Da te Episodic/Chronic Blindness and vision defects (16 sources) Other specified visual disturbances; Translations: [Sudden visual loss] Resolved: 01-27-2016 01-27-2016 Episodic Results Test Name Value Interpretation Reference Range Facil ity Vital Signs Date Time Vital Sign Value Performing Clinician Facility 09-28-2021 09:51-0400 Body height 170.18 cm Juno Cho LPN [facility] Work Phone: 09-28-2021 09:51-0400 Body mass index (BMI) [Ratio] 22.1 kg/m2 Juno Cho [facility] Work Phone: 09-28-2021 09:51-0400 Body surface area Derived from formula 1.74 m2 Juno Cho [facility] Work Phone: 09-28-2021 09:51-0400 Body weight 64.01 kg Juno Cho [facility] Work Phone: 09-21-2021 08:13-0400 Body height 170.18 cm Sanna Catalan CMA [facility]; [facility] Work Phone: 09-21-2021 08:13-0400 Body mass index (BMI) [Ratio] 22.1 kg/m2 Sanna Catalan CMA [facility]; [facility] Work Phone: 09-21-2021 08:13-0400 Body surface area Derived from formula 1.74 m2 Sanna Hossein MOTHERS HELPER [facility]; [facility] Work Phone: 09-21-2021 08:13-0400 Body temperature 96.8 [degF] Sanna Hossein MARKS [facility]; [facility] Work Phone: Encounters Encounter Date Encounter Type Care Provider Facility Start: 09-28-2021 End: 09-28-2021 Office outpatient visit 15 minutes Jacqueline Blanco DO Work Phone: [facility] Start: 09-22-2021 End: 09-22-2021 Annotation/Addendum Jacqueline Bishopon DO Work Phone: [facility] Start: 09-21-2021 End: 09-21-2021 Office outpatient visit 15 minutes Jacqueline Blanco DO Work Phone: [facility] Start: 04-24-2019 End: 04-25-2019 Office outpatient visit 25 minutes Jacqueline Blanco [facility] Start: 04-24-2019 Review Jacqueline Francis [facility] Start: 08-23-2018 Patient encounter procedure Jacqueline [facility] Start: 08-01-2018 End: 08-01-2018 Office outpatient visit 15 minutes Jacqueline [facility] Start: 09-21-2017 End: 09-24-2017 Office outpatient visit 5 minutes Jacqueline [facility] Start: 09-18-2017 End: 09-18-2017 Annotation/Addendum Jacqueline Graham [facility] Start: 09-07-2017 End: 09-07-2017 Office outpatient visit 5 minutes Jacqueline [facility] Start: 09-05-2017 End: 09-05-2017 Office outpatient visit 5 minutes Jacqueline [facility] Start: 06-12-2017 End: 06-12-2017 Lab Order Jacqueline Graham [facility] Start: 04-12-2017 End: 04-12-2017 Patient encounter procedure Jacqueline [facility] Start: 04-09-2017 End: 04-09-2017 Office outpatient visit 10 minutes Jacqueline [facility] Start: 02-16-2017 End: 02-16-2017 Phone Encounter Jacqueline Graham [facility] Start: 02-13-2017 End: 02-13-2017 Phone Encounter Jacqueline Graham [facility] Start: 01-31-2017 End: 01-31-2017 Phone Encounter Jacqueline Graham [facility] Start: 01-26-2017 End: 01-26-2017 Office outpatient visit 15 minutes Jacqueline [facility] Start: 08-04-2016 End: 08-04-2016 Office outpatient visit 15 minutes Jacqueline [facility] Start: 05-23-2016 End: 05-23-2016 Office outpatient visit 15 minutes Jacqueline [facility] Start: 05-17-2016 End: 05-17-2016 Office outpatient visit 5 minutes Jacqueline [facility] Start: 05-09-2016 End: 05-10-2016 Office outpatient visit 5 minutes Jacqueline [facility] Start: 01-27-2016 End: 01-27-2016 Periodic preventive med est patient 18-39 yrs Jacqueline [facility] Start: 11-12-2015 End: 11-12-2015 Annotation/Addendum Jacqueline Francis [facility] Start: 11-12-2015 End: 11-12-2015 Office outpatient visit 15 minutes Jacqueline Blanco [facility] Start: 07-29-2013 End: 07-29-2013 Patient encounter procedure Jacqueline Blanco [facility] Start: 07-17-2013 End: 07-17-2013 Phone Encounter Jacqueline Blanco [facility] Start: 07-16-2013 End: 07-16-2013 Patient encounter procedure Jacqueline Blanco [facility] Start: 04-24-2013 End: 04-24-2013 Patient encounter procedure Jacqueline Blanco [facility] Start: 08-26-2012 End: 08-26-2012 Patient encounter procedure Jacqueline Blanco [facility] Start: 08-19-2012 End: 08-19-2012 Patient encounter procedure Jacqueline Blanco [facility] Start: 06-04-2012 End: 06-04-2012 Office outpatient visit 15 minutes Jacqueline lBanco [facility] Start: 04-08-2012 End: 04-08-2012 Patient encounter procedure Jacqueline Blanco [facility] Patient encounter procedure Jacqueline Blanco DO Work Phone: [facility] Work Phone: Patient encounter status Keisha Matthews RN [facility] Work Phone: Patient encounter status Juno Cho LPN [facility]; [facility] Work Phone: Procedures Date Procedure Procedure Detail Performing Clinician Start: 09-30-2021 End: 10-01-2021 Transvaginal w/Preg US Comments: See Note; NOTES: [facility] Imaging Services [address] [place] [address] Transvaginal w/Preg US MR#: [id number] Acct: [id number] Name: BRIT WALTER Rep #: [id number] : 1995 F 25 From: Bucky dominguez MD PCP: Dr. Jacqueline Blanco, DO Status: REG CLI Study: Transvaginal w/Preg US Date of Exam: 09/30/21 Exam# [id number] Ordering Dr: Zayra Marquez EXAM: US OB Transvaginal HISTORY: dating TECHNIQUE: US OB Transvaginal COMPARISON: 01/03/2021. LIMITATIONS: None. UTERUS Size: Within normal limits Masses: None. Gestational sac: Single intrauterine gestational sac visualized. Subchorionic hemorrhage: Complex collection adjacent to the gestational sac measuring 4.7 x 4.4 x 2.5 cm. Yolk sac: Visualized. pole: CRL = 5.7 cm, 12 weeks 1 day. Cardiac activity: 170 bpm. OVARIES/ADNEXA Right: Not visualized Left: Not visualized OTHER: None. US/Transvaginal w/Preg US IMPRESSION: 1. Single live intrauterine , 12 weeks 1 day. 2. Subchorionic hemorrhage measuring 4.7 cm. Electronically Signed: Bucky Gonzalez MD at 8:02 EDT , CC: Dr. Jacqueline Blanco DO; Dr. Zayra Marquez MD Air Quality Consultant: Signed Jacqueline Blanco DO Work Phone: Start: 03-07-2021 End: 03-07-2021 Process Operator Office Visit Report Comments: See Note; NOTES: [facility] [address] [place] [address]. [address] [place] [address] OFFICE VISIT Date of Service: 03/07/21 MR#: [id number] Acct: [id number] Name: BRIT WALTER Rep #: [id number] : 1995 Provider: Dr. Kourtney snow MD Age/Sex: 25/F Location: [facility] Status: Signed Intake Vital Signs 03/07/21 11:23 Height 5 ft 7 in Weight: 136 lb 4 oz BMI 21.3 BP 104/70 Intake Visit Reasons: 6 WK PP, declined IUD Ping Pong Table Assembler Required: No Is patient in pain?: No Allergies gluten Adverse Reaction (Verified 03/07/21 11:20) Upset Stomach Medications multivitamin no.47-iron fum 27 mg-folate no.1 1 mg-dha 300 mg capsule 1 cap PO DAILY 06/08/20 [History Confirmed 03/07/21] fluconazole 200 mg tablet 200 mg PO .COMPLEX #16 tab 02/24/21 [Rx Confirmed 03/07/21] amoxicillin 500 mg-potassium clavulanate 125 mg tablet 1 tab PO BID 03/07/21 [History Confirmed 03/07/21] etonogestrel 0.12 mg-ethinyl estradiol 0.015 mg/24 hr vaginal ring 1 vag ring VAGINAL Q4W #3 ea 03/07/21 [Rx Confirmed 03/07/21] : [facility] Medical History Anxiety depression Spontaneous vaginal delivery Family History Brother Diabetes Father Diabetes Social History (Updated 03/07/21 @ 11:21 by Karena Bernal) household members: family housing: house number of children: 2 Smoking Status: Never smoker alcohol intake: current details: social substance use type: does not use what type of physical activity do you participate in: none seatbelt use: always do you feel safe at home: Yes 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 Date Name GA/Weeks Outcome Route Bth Weight Infant Gen Labor Lgth Anesthesia Del [facility] Provider FOB Unknown 02/06/2018- Trae 40 live - full term 8lbs 1oz Female 11 hour s epidural [facility] Dennis Casillas 01/26/21 Abner 39 live - full term Male epidural [facility] GP Delivery Date: 7 day post infection - fever ATB x10 days Evelina Rodriguez Delivery Date: 01/26/21 No notes to display Depression Screen PHQ-2/9 PHQ-2 Over the last 2 weeks, how often have you been bothered by any of the following problems? 1. Little interest or pleasure in doing things: not at all 2. Feeling down, depressed, or hopeless: not at all Total score: 0 Post HPI 6 WK PP, declined IUD: Details: BRIT WALTER is a 25 year old who presents for her post visit. Infant Feeding: Breast Menses resumed: No Amagon since delivery: No Emotional Support: Yes Last Pap:: 2020 Details: BRIT WALTER is a 25 year old who presents for her post visit. ROS Const Denies chills, Denies difficulty sleeping, Denies fatigue, Denies fever(s), Denies headache(s), Denies poor appetite and Denies night sweats Eyes Denies blurry vision, Denies change in vision and Denies floaters ENT Denies headache(s) Card Denies chest pain and Denies dyspnea Resp Denies dyspnea GI Denies constipation, Denies nausea and Denies vomiting Denies abnormal vaginal bleeding, Denies difficulty voiding, Denies dysuria, Reports nipple discharge, Denies pelvic pain, Denies vaginal discharge, Denies vaginal dryness, Denies vaginal odor and Denies vaginal pruritus Skin/Breast Denies breast mass, Denies breast pain, Denies breast skin changes, Denies breast swelling and Reports nipple discharge Neuro No headache(s) Psych Denies anhedonia, Denies anxiety, Denies depression, Denies homicidal ideation, Denies hopelessness and Denies irritability Endo Denies fatigue Exam Const General: cooperative, healthy appearing, comfortable, no acute distress, well developed and well groomed Nutritional Appearance: average body habitus Orientation: alert, awake and oriented x3 HENMT Head: normal to inspection, normocephalic and atraumatic Eyes Pupils: PERRL and accommodation normal EOM: EOM intact bilaterally Chest Chest palpation inspection: normal inspection of the chest Breast inspection: normal inspection of the breasts and normal inspection of the axillae Breast palpation: normal palpation of the breasts, normal palpation of the axillae and no axillary lymphadenopathy Resp Effort Inspection: normal respiratory effort, able to speak in complete sentences and symmetric chest movement Cardio Rate: regular rate GI Inspection: normal to inspection Palpation: soft, no guarding, no masses, not rigid and nontender General: bladder normal to palpation External Female Exam: normal external appearance, normal appearance of the urethra, no erythema, no external swelling and no lesions Urethra: normal appearance of the urethra Speculum Exam - Vagina: normal appearance of the vagina, normal vaginal discharge, not erythematous, no lacerations, no lesions, No vaginal bleeding and nontender Speculum Exam - Cervix: normal appearance of the cervix, no lesions, no masses and nontender Bimanual Exam- Vagina Uterus: bladder normal to palpation and No tender Bimanual Exam- Adnexa, other: normal and apex supported Pelvic Support: normal, no cystocele, no rectocele, no enterocele and apex supported OB/External Speculum: No vaginal bleeding Speculum Exam: no vaginal bleeding Skin General: no rashes or lesions noted, elasticity normal and turgor normal Neuro General: patient alert, patient awake, patient oriented x3, gait normal, tone normal and moves all extremities Cranial Nerves: CN's II-XI intact bilaterally, PERRL, accommodation normal, EOM intact bilaterally and no nystagmus Cognition: normal cognition Speech: speech normal Gait: normal gait Psych Appearance: grossly normal and well kempt Mental Status: mental status grossly normal Affect: normal affect Speech and Movement: speech and movement normal Attitude: cooperative Thought Process: normal Thought Content: normal Judgment: judgment good Coding Level of Care Code No Charge Diagnoses care and examination Z39.2 Assessment and Plan Assessment and Plan (1) care and examination: Plan - Dr. Kourtney Ceron MD: Normal exam Pap up to date Nuva ring for control - planning to start weaning Negative depression screen Will see back in 1 year for annual Plan Details Other Medications: New: etonogestrel-ethinyl estradiol 0.12-0.015 mg/24 hr (NuvaRing) leave in place for 3 weeks of a 4-week cycle 1 vag ring vaginal Q4W 3 ea 3RF 03/07/21 1141 <Electronically signed by Kourtney Ceron MD> Date Kourtney Ceron MD Cosigner Signature: Date (if applicable) CC: Jacqueline Blanco DO Work Phone: Start: 01-24-2021 End: 01-24-2021 Process Operator Office Visit Report Comments: See Note; NOTES: [facility] [address] [place] [address] OFFICE VISIT Date of Service: 01/24/21 MR#: [id number] Acct: [id number] Name: BRIT WALTER Rep #: [id number] : 1995 Provider: Dr. Kourtney snow MD Age/Sex: 25/F Location: [facility] Status: Signed Intake Vital Signs 01/24/21 08:35 01/24/21 08:36 Height 5 ft 7 in Weight: 169 lb 2 oz BMI 26.4 25.5 BP 108/70 Intake Visit Reasons: 39WK OB Ping Pong Table Assembler Required: No Is patient in pain?: No Allergies gluten Adverse Reaction (Verified 01/24/21 08:34) Upset Stomach Medications multivitamin no.47-iron fum 27 mg-folate no.1 1 mg-dha 300 mg capsule cap PO 06/08/20 [History Confirmed 01/24/21] ondansetron 4 mg disintegrating tablet 4 mg PO Q6H PRN #30 tablet 09/17/20 [Rx Confirmed 01/24/21] cetirizine 10 mg capsule 10 mg PO DAILY PRN 12/06/20 [History Confirmed 01/24/21] Last Menstral Period: 04/21/20 Zika: Zika virus screening: Negative : No PFSH PFSH Medical History (Updated 01/24/21 @ 08:36 by Karena Bernal) Anxiety Social History household members: family housing: house number of children: 1 Smoking Status: Never smoker alcohol intake: current details: social substance use type: does not use what type of physical activity do you participate in: none seatbelt use: always do you feel safe at home: Yes 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 Date Name GA/Weeks Outcome Route Bth Weight Gen Labor Lgth Anesthesia Del Locatn Provider FOB Unknown 02/06/2018- Trae 40 live - full term 8lbs 1oz Female 11 hour s epidural [facility] Dennis Casillas Delivery Date: 7 day post infection - fever ATB x10 days Evelina Rodriguez HPI 39WK OB Details: BRIT WALTER is a 25 year old who presents for routine OB visit. OB Visit ELAINA Calculator Estimated Delivery Date Method Current WG Current Estimate 01/28/21 Ultrasound #1 39w 3d Expected Delivery Route/Plan Labor Preferences- CB/BF classes: no labor support person: Rony labor intervention preferences: minimal intervention. pain management options preferred: desires natural - open to epidural cut cord/dad catch: cord : yes PP control planned: condoms then nuvaring. discussed possible routes of delivery and associated risks: discussed possible delivery modalities and possible indications for each including R/B/A of , VAVD, FAVD, and CS. questions answered. special requests: [] Specific Issue/Plans COVID status: positive during 1st trimester flu vaccine: no tdap vaccine: given rhogam: na LARC form signed: yes movement and labor precautions reviewed. Problem list reviewed and updated with the most current plan of care details and appropriate orders placed. Relevant counseling for the gestational age provided. Continue routine care and follow up unless otherwise noted in visit notes/problem list details Initial Weight: Not Recorded Date -???-???-???-???-???-???-??? -???-???-???-???-???- EGA Weight BP Urine Prot -???-???-???-???-???-???-??? -???-???-???-???-???- Glucose FHR FuHt Pres Dilation -???-???-???-???-???-???-??? -???-???-???-???-???- Effaced St Visit Note 06/30/20 -???-???-???-???-???-???-??? -???-???-???-???-???- 9w 5d 143 lb 2 oz 100/62 -???-???-???-???-???-???-??? -???-???-???-???-???- 175 -???-???-???-???-???-???-??? -???-???-???-???-???- GP - CRL 25m m consistent with LMP. GP - CRL 25mm consistent ELAINA of 01/28. LMP unknown. 07/28/20 -???-???-???-???-???-???-??? -???-???-???-???-???- 13w 5d 142 lb 2 oz 100/64 Negative -???-???-???-???-???-???-??? -???-???-???-???-???- Negative 150 -???-???-???-???-???-???-??? -???-???-???-???-???- GP - no cram ping or bleeding. Anatomy scan ordered. 08/25/20 -???-???-???-???-???-???-??? -???-???-???-???-???- 17w 5d 149 lb 4 oz 100/64 Negative -???-???-???-???-???-???-??? -???-???-???-???-???- Negative 135 -???-???-???-???-???-???-??? -???-???-???-???-???- GP - no cram ping or bleeding. PRR. Anatomy scan 09/06. [facility] is throwing gender reveal green party. 09/27/20 -???-???-???-???-???-???-??? -???-???-???-???-???- 22w 3d 153 lb 4 oz 104/60 Trace -???-???-???-???-???-???-??? -???-???-???-???-???- Negative 142 -???-???-???-???-???-???-??? -???-???-???-???-???- -No VB, DALI NIEVES. 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 28 wk growth US hx of covid ordered. 10/25/20 -???-???-???-???-???-???-??? -???-???-???-???-???- 26w 3d 159 lb 100/58 Negative -???-???-???-???-???-???-??? -???-???-???-???-???- Negative 141 26 -???-???-???-???-???-???-??? -???-???-???-???-???- -No SAMANTHA. DALI Nieves. Growth US 11/08, Larc. 28 w lab wnl 11/15/20 -???-???-???-???-???-???-??? -???-???-???-???-???- 29w 3d 160 lb 2 oz 108/82 Negative -???-???-???-???-???-???-??? -???-???-???-???-???- Negative 130 29 -???-???-???-???-???-???-??? -???-???-???-???-???- GP - no LOF, VB, DFM, ctx. Decided on Ti for name. GP - no LOF, VB, DFM, ctx. Decided on Ti for name. Discussed medication for allergies 12/06/20 -???-???-???-???-???-???-??? -???-???-???-???-???- 32w 3d 165 lb 102/60 -???-???-???-???-???-???-??? -???-???-???-???-???- 140 33 -???-???-???-???-???-???-??? -???-???-???-???-???- SM- no vb lo f good fm no regular ctx SM- co some left lower groin pain. no vb lof good fm no regular ctx. US today. 12/07/20 -???-???-???-???-???-???-??? -???-???-???-???-???- 32w 4d 165 lb 8 oz 90/56 Negative -???-???-???-???-???-???-??? -???-???-???-???-???- Negative 131 2 -???-???-???-???-???-???-??? -???-???-???-???-???- 40 -work in for gush of clear fluid. ROM pending. NO VB. Good FM 12/20/20 -???-???-???-???-???-???-??? -???-???-???-???-???- 34w 3d 163 lb 4 oz 98/60 Negative -???-???-???-???-???-???-??? -???-???-???-???-???- Negative 130 34 Cephalic -???-???-???-???-???-???-??? -???-???-???-???-???- GP - no LOF, VB, DFM, ctx. Discussed routes of delivery. 01/03/21 -???-???-???-???-???-???-??? -???-???-???-???-???- 36w 3d 166 lb 112/66 Negative -???-???-???-???-???-???-??? -???-???-???-???-???- Negative 130 35 Cephalic 2 -???-???-???-???-???-???-??? -???-???-???-???-???- 40 -1 SM- no vb lof good fm no regular ctx gbs today 01/10/21 -???-???-???-???-???-???-??? -???-???-???-???-???- 37w 3d 165 lb 4 oz 100/58 Negative -???-???-???-???-???-???-??? -???-???-???-???-???- Negative 140 37 Cephalic 4 -???-???-???-???-???-???-??? -???-???-???-???-???- 60 -2 GP - no LO F, VB, DFM, ctx. Denies complaints 01/17/21 -???-???-???-???-???-???-??? -???-???-???-???-???- 38w 3d 168 lb 98/70 Negative -???-???-???-???-???-???-??? -???-???-???-???-???- Negative 130 37 Cephalic 4 -???-???-???-???-???-???-??? -???-???-???-???-???- 60 -2 SM- no vb lof good fm no regular ctx. Membranes swept 01/24/21 -???-???-???-???-???-???-??? -???-???-???-???-???- 39w 3d 169 lb 2 oz 108/70 Negative -???-???-???-???-???-???-??? -???-???-???-???-???- Negative 130 39 Cephalic 5 -???-???-???-???-???-???-??? -???-???-???-???-???- 70 -2 GP - no LO F, VB, DFM, ctx. Discussed expectant management vs. elective induction. GP - no LOF, VB, DFM, ctx. Discuss ed expectant management vs. elective induction. Plan IOL today due to advanced dilation and distance from hospital. ACOG First Trimester First Trimester: Desire for , Alcohol, Tobacco Cessation, Illicit/Recreational Drug/Substance Use, Intimate Partner Violence, Barriers to care, Unstable Housing, Communication Barriers, Environmental/Work Hazards, Anticipated Course of Care, Toxoplasmosis Precations, Use of Any medications, Sexual activity, Exercise, Dental Care, Sauna/Hot tub use, Seat Belt use, Childbirth classes/Hospital facilities, , Travel, Indications for Ultrasound and Screening for Aneuploidy Second Trimester Second Trimester: Signs and Symptoms of Labor, Selecting a care provider, Reproductive Life Planning Contreception, Depression/Anxiety and Intimate Partner Violence; Discussed Tobacco Cessation Third Trimester Third Trimester: Pain Management Plans, Labor support person(s), Immediate Larc, Circumcision preference, Signs and Symptoms of Preeclampsia, Feeding Yes and Family Medical Leave or Disability Forms Diagnostics Diagnostics Diagnostics: Glucose 1 Hr 50 gm 87 mg/dL (70-140) Hgb 11.6 g/dL (12.0-15.0) L Hct 36.0 % (37-47) L Details: HIV: Urine Culture: Sequential Screen: NIPT Screen: ROS GI Denies dyspepsia, Denies nausea and Denies vomiting Denies abnormal vaginal bleeding, Denies dysuria, Denies pelvic pain, Denies vaginal discharge, Denies vaginal odor and Denies vaginal pruritus Exam Const General: cooperative, healthy appearing, comfortable, no acute distress, well developed and well groomed Nutritional Appearance: average body habitus and well nourished Orientation: alert, awake and oriented x3 HENMT Head: normal to inspection, normocephalic and atraumatic Eyes Pupils: PERRL and accommodation normal Resp Effort Inspection: normal respiratory effort, able to speak in complete sentences and symmetric chest movement Cardio Rate: regular rate GI Palpation: soft, no guarding, no masses and nontender Skin General: no rashes or lesions noted, elasticity normal and turgor normal Neuro General: patient alert, patient awake and patient oriented x3 Cranial Nerves: CN's II-XI intact bilaterally, sense of smell intact, PERRL, accommodation normal and EOM intact bilaterally Speech: speech normal Gait: normal gait Psych Appearance: grossly normal and well kempt Mental Status: mental status grossly normal Mood: congruent mood Affect: normal affect Speech and Movement: speech and movement normal Attitude: cooperative Thought Process: normal Thought Content: normal Judgment: judgment good Results POC Urinalysis 2 Dip (Clinic) Office Urine Glucose Negative Last Edit by Karena Bernal on 01/24/21 08:42 Office Urine Protein Negative Last Edit by Karena Bernal on 01/24/21 08:42 Coding Level of Care Code OB Routine Diagnoses COVID-19 affecting , antepartum O98.519; U07.1 Abnormal Pap smear of cervix R87.619 Abnormal Pap type: unspecified Supervision of other normal Z34.80 Z3A.39 Weeks of gestation: 39 weeks Assessment and Plan Assessment and Plan (1) COVID-19 affecting , antepartum: Status: Acute Comment: Taking baby ASA, plan growth US starting at 28 weeks, 12/06 nl growth, 01/03 nl growth (2) Abnormal Pap smear of cervix: Status: Acute Qualifiers: Abnormal Pap type: unspecified Qualified Code(s): R87.619 - Unspecified abnormal cytological findings in specimens from cervix uteri Comment: colposcopy x2 (3) Supervision of other normal : Status: Acute Comment: PRR ELAINA 01/28/21 Boy! Ti PC: Trae Spouse: Rony (4) : Status: Acute Qualifiers: Weeks of gestation: 39 weeks Qualified Code(s): Z3A.39 - 39 weeks gestation of Comment: declines genetic, ntd, and carrier screening. nl anatomy Plan Details Other Orders: Orders: POC Urinalysis 2 Dip (Clinic) Today 01/24/21 0933 <Electronically signed by Kourtney Ceron MD> Date Kourtney Ceron MD Cosigner Signature: Date (if applicable) CC: Jacqueline Blanco DO Work Phone: Start: 01-17-2021 End: 01-17-2021 Process Operator Office Visit Report Comments: See Note; NOTES: [facility] [address] [place], [place] [id number] [phone] OFFICE VISIT Date of Service: 01/17/21 MR#: [id number] Acct: [id number] Name: BRIT WALTER Rep #: [id number] : 1995 Provider: Dr. Zayra hinton MD Age/Sex: 25/F Location: [facility] [place] Status: Signed Intake Vital Signs 01/17/21 08:08 01/17/21 08:08 Height 5 ft 7 in Weight: 168 lb BMI 26.3 25.5 BP 98/70 Intake Visit Reasons: 28WK OB Chief Complaint: est ob Ping Pong Table Assembler Required: No Is patient in pain?: No Allergies gluten Adverse Reaction (Verified 01/10/21 08:40) Upset Stomach Medications multivitamin no.47-iron fum 27 mg-folate no.1 1 mg-dha 300 mg capsule cap PO 06/08/20 [History Confirmed 01/17/21] ondansetron 4 mg disintegrating tablet 4 mg PO Q6H PRN #30 tablet 09/17/20 [Rx Confirmed 01/17/21] cetirizine 10 mg capsule 10 mg PO DAILY PRN 12/06/20 [History Confirmed 01/17/21] Last Menstral Period: 04/21/20 PFSH PFSH Medical History Anxiety Social History household members: family housing: house number of children: 1 Smoking Status: Never smoker alcohol intake: current details: social substance use type: does not use what type of physical activity do you participate in: none seatbelt use: always do you feel safe at home: Yes 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 Date Name GA/Weeks Outcome Route Bth Weight Gen Labor Lgth Anesthesia Del Locatn Provider FOB Unknown 02/06/2018- [place] 40 live - full term 8lbs 1oz Female 11 hour s epidural [facility] Dennis Casillas Delivery Date: 7 day post infection - fever ATB x10 days Evelina Rodriguez HPI 28WK OB Details: BRIT WALTER is a 25 year old who presents for routine OB visit. OB Visit ELAINA Calculator Estimated Delivery Date Method Current WG Current Estimate 01/28/21 Ultrasound #1 38w 3d Expected Delivery Route/Plan Labor Preferences- CB/BF classes: no labor support person: Rony labor intervention preferences: minimal intervention. pain management options preferred: desires natural - open to epidural cut cord/dad catch: cord : yes PP control planned: condoms then nuvaring. discussed possible routes of delivery and associated risks: discussed possible delivery modalities and possible indications for each including R/B/A of , VAVD, FAVD, and CS. questions answered. special requests: [] Specific Issue/Plans COVID status: positive during 1st trimester flu vaccine: no tdap vaccine: given rhogam: na LARC form signed: yes movement and labor precautions reviewed. Problem list reviewed and updated with the most current plan of care details and appropriate orders placed. Relevant counseling for the gestational age provided. Continue routine care and follow up unless otherwise noted in visit notes/problem list details Initial Weight: Not Recorded Date -???-???-???-???-???-???-??? -???-???-???-???-???- EGA Weight BP Urine Prot -???-???-???-???-???-???-??? -???-???-???-???-???- Glucose FHR FuHt Pres Dilation -???-???-???-???-???-???-??? -???-???-???-???-???- Effaced St Visit Note 06/30/20 -???-???-???-???-???-???-??? -???-???-???-???-???- 9w 5d 143 lb 2 oz 100/62 -???-???-???-???-???-???-??? -???-???-???-???-???- 175 -???-???-???-???-???-???-??? -???-???-???-???-???- GP - CRL 25m m consistent with LMP. GP - CRL 25mm consistent ELAINA of 01/28. LMP unknown. 07/28/20 -???-???-???-???-???-???-??? -???-???-???-???-???- 13w 5d 142 lb 2 oz 100/64 Negative -???-???-???-???-???-???-??? -???-???-???-???-???- Negative 150 -???-???-???-???-???-???-??? -???-???-???-???-???- GP - no cram ping or bleeding. Anatomy scan ordered. 08/25/20 -???-???-???-???-???-???-??? -???-???-???-???-???- 17w 5d 149 lb 4 oz 100/64 Negative -???-???-???-???-???-???-??? -???-???-???-???-???- Negative 135 -???-???-???-???-???-???-??? -???-???-???-???-???- GP - no cram ping or bleeding. PRR. Anatomy scan 09/06. [id number]-[id number] is throwing gender reveal green party. 09/27/20 -???-???-???-???-???-???-??? -???-???-???-???-???- 22w 3d 153 lb 4 oz 104/60 Trace -???-???-???-???-???-???-??? -???-???-???-???-???- Negative 142 -???-???-???-???-???-???-??? -???-???-???-???-???- -No VB, DALI NIEVES. 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 28 wk growth US hx of covid ordered. 10/25/20 -???-???-???-???-???-???-??? -???-???-???-???-???- 26w 3d 159 lb 100/58 Negative -???-???-???-???-???-???-??? -???-???-???-???-???- Negative 141 26 -???-???-???-???-???-???-??? -???-???-???-???-???- -No SAMANTHA. DALI Nieves. Growth US 11/08, Larc. 28 w lab wnl 11/15/20 -???-???-???-???-???-???-??? -???-???-???-???-???- 29w 3d 160 lb 2 oz 108/82 Negative -???-???-???-???-???-???-??? -???-???-???-???-???- Negative 130 29 -???-???-???-???-???-???-??? -???-???-???-???-???- GP - no LOF, VB, DFM, ctx. Decided on Ti for name. GP - no LOF, VB, DFM, ctx. Decided on Ti for name. Discussed medication for allergies 12/06/20 -???-???-???-???-???-???-??? -???-???-???-???-???- 32w 3d 165 lb 102/60 -???-???-???-???-???-???-??? -???-???-???-???-???- 140 33 -???-???-???-???-???-???-??? -???-???-???-???-???- SM- no vb lo f good fm no regular ctx SM- co some left lower groin pain. no vb lof good fm no regular ctx. US today. 12/07/20 -???-???-???-???-???-???-??? -???-???-???-???-???- 32w 4d 165 lb 8 oz 90/56 Negative -???-???-???-???-???-???-??? -???-???-???-???-???- Negative 131 2 -???-???-???-???-???-???-??? -???-???-???-???-???- 40 MH-work in for gush of clear fluid. ROM pending. NO VB. Good FM 12/20/20 -???-???-???-???-???-???-??? -???-???-???-???-???- 34w 3d 163 lb 4 oz 98/60 Negative -???-???-???-???-???-???-??? -???-???-???-???-???- Negative 130 34 Cephalic -???-???-???-???-???-???-??? -???-???-???-???-???- GP - no LOF, VB, DFM, ctx. Discussed routes of delivery. 01/03/21 -???-???-???-???-???-???-??? -???-???-???-???-???- 36w 3d 166 lb 112/66 Negative -???-???-???-???-???-???-??? -???-???-???-???-???- Negative 130 35 Cephalic 2 -???-???-???-???-???-???-??? -???-???-???-???-???- 40 -1 SM- no vb lof good fm no regular ctx gbs today 01/10/21 -???-???-???-???-???-???-??? -???-???-???-???-???- 37w 3d 165 lb 4 oz 100/58 Negative -???-???-???-???-???-???-??? -???-???-???-???-???- Negative 140 37 Cephalic 4 -???-???-???-???-???-???-??? -???-???-???-???-???- 60 -2 GP - no LO F, VB, DFM, ctx. Denies complaints 01/17/21 -???-???-???-???-???-???-??? -???-???-???-???-???- 38w 3d 168 lb 98/70 Negative -???-???-???-???-???-???-??? -???-???-???-???-???- Negative 130 37 Cephalic 4 -???-???-???-???-???-???-??? -???-???-???-???-???- 60 -2 SM- no vb lof good fm no regular ctx. Membranes swept ACOG First Trimester First Trimester: Desire for , Alcohol, Tobacco Cessation, Illicit/Recreational Drug/Substance Use, Intimate Partner Violence, Barriers to care, Unstable Housing, Communication Barriers, Environmental/Work Hazards, Anticipated Course of Care, Toxoplasmosis Precations, Use of Any medications, Sexual activity, Exercise, Dental Care, Sauna/Hot tub use, Seat Belt use, Childbirth classes/Hospital facilities, , Travel, Indications for Ultrasound and Screening for Aneuploidy Second Trimester Second Trimester: Signs and Symptoms of Labor, Selecting a care provider, Reproductive Life Planning Contreception, Depression/Anxiety and Intimate Partner Violence; Discussed Tobacco Cessation Third Trimester Third Trimester: Pain Management Plans, Labor support person(s), Immediate Larc, Circumcision preference, Signs and Symptoms of Preeclampsia, Feeding Yes and Family Medical Leave or Disability Forms Diagnostics Diagnostics Diagnostics: Glucose 1 Hr 50 gm 87 mg/dL (70-140) Hgb 11.6 g/dL (12.0-15.0) L Hct 36.0 % (37-47) L Details: HIV: Urine Culture: Sequential Screen: NIPT Screen: Results POC Urinalysis 2 Dip (Clinic) Office Urine Glucose Negative Last Edit by Sabiha Canales on 01/17/21 08:15 Office Urine Protein Negative Last Edit by Sabiha Canales on 01/17/21 08:15 Coding Level of Care Code OB Routine Diagnoses Z3A.36 Weeks of gestation: 36 weeks Supervision of other normal Z34.80 Abnormal Pap smear of cervix R87.619 Abnormal Pap type: unspecified COVID-19 affecting , antepartum O98.519; U07.1 Assessment and Plan Assessment and Plan (1) : Status: Acute Qualifiers: Weeks of gestation: 36 weeks Qualified Code(s): Z3A.36 - 36 weeks gestation of Comment: declines genetic, ntd, and carrier screening. nl anatomy (2) Supervision of other normal : Status: Acute Comment: PRR ELAINA 01/28/21 Boy! Ti PC: Trae Spouse: Rony (3) Abnormal Pap smear of cervix: Status: Acute Qualifiers: Abnormal Pap type: unspecified Qualified Code(s): R87.619 - Unspecified abnormal cytological findings in specimens from cervix uteri Comment: colposcopy x2 (4) COVID-19 affecting , antepartum: Status: Acute Comment: Taking baby ASA, plan growth US starting at 28 weeks, 12/06 nl growth, 01/03 nl growth Plan Details Other Orders: Orders: POC Urinalysis 2 Dip (Clinic) Today 01/17/21 0838 <Electronically signed by Zayra Marquez MD> Date Zayra Marquez MD Cosigner Signature: Date (if applicable) CC: Jacqueline Blanco DO Work Phone: Start: 01-10-2021 End: 01-10-2021 Process Operator Office Visit Report Comments: See Note; NOTES: [facility] [address] [place] [address] OFFICE VISIT Date of Service: 01/10/21 MR#: [id number] Acct: [id number] Name: BRIT WALTER Rep #: [id number] : 1995 Provider: Dr. Kourtney snow MD Age/Sex: 25/F [place] [facility] Status: Signed Intake Vital Signs 01/10/21 08:39 01/10/21 08:42 Height 5 ft 7 in Weight: 165 lb 4 oz BMI 25.9 25.5 BP 100/58 L Intake Visit Reasons: 37WK OB Allergies gluten Adverse Reaction (Verified 01/10/21 08:40) Upset Stomach Medications multivitamin no.47-iron fum 27 mg-folate no.1 1 mg-dha 300 mg capsule cap PO 06/08/20 [History Confirmed 01/10/21] ondansetron 4 mg disintegrating tablet 4 mg PO Q6H PRN #30 tablet 09/17/20 [Rx Confirmed 01/10/21] cetirizine 10 mg capsule 10 mg PO DAILY PRN 12/06/20 [History Confirmed 01/10/21] Last Menstral Period: 04/21/20 Zika: Zika virus screening: Negative : No PFSH PFSH Medical History Anxiety Social History household members: family housing: house number of children: 1 Smoking Status: Never smoker alcohol intake: current details: social substance use type: does not use what type of physical activity do you participate in: none seatbelt use: always do you feel safe at home: Yes 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 Date Name GA/Weeks Outcome Route Bth Weight Infant Gen Labor Lgth Anesthesia Del Locatn Provider FOB Unknown 02/06/2018- [place] 40 live - full term 8lbs 1oz Female 11 hour s epidural [facility] Dennis Casillas Delivery Date: 7 day post infection - fever ATB x10 days Evelina Rodriguez HPI 37WK OB Details: BRIT WALTER is a 25 year old who presents for routine OB visit. OB Visit ELAINA Calculator Estimated Delivery Date Method Current WG Current Estimate 01/28/21 Ultrasound #1 37w 3d Expected Delivery Route/Plan Labor Preferences- CB/BF classes: no labor support person: Rony labor intervention preferences: minimal intervention. pain management options preferred: desires natural - open to epidural cut cord/dad catch: cord : yes PP control planned: condoms then nuvaring. discussed possible routes of delivery and associated risks: discussed possible delivery modalities and possible indications for each including R/B/A of , VAVD, FAVD, and CS. questions answered. special requests: [] Specific Issue/Plans COVID status: positive during 1st trimester flu vaccine: no tdap vaccine: given rhogam: na LARC form signed: yes movement and labor precautions reviewed. Problem list reviewed and updated with the most current plan of care details and appropriate orders placed. Relevant counseling for the gestational age provided. Continue routine care and follow up unless otherwise noted in visit notes/problem list details Initial Weight: Not Recorded Date -???-???-???-???-???-???-??? -???-???-???-???-???- EGA Weight BP Urine Prot -???-???-???-???-???-???-??? -???-???-???-???-???- Glucose FHR FuHt Pres Dilation -???-???-???-???-???-???-??? -???-???-???-???-???- Effaced St Visit Note 06/30/20 -???-???-???-???-???-???-??? -???-???-???-???-???- 9w 5d 143 lb 2 oz 100/62 -???-???-???-???-???-???-??? -???-???-???-???-???- 175 -???-???-???-???-???-???-??? -???-???-???-???-???- GP - CRL 25m m consistent with LMP. GP - CRL 25mm consistent ELAINA of 01/28. LMP unknown. 07/28/20 -???-???-???-???-???-???-??? -???-???-???-???-???- 13w 5d 142 lb 2 oz 100/64 Negative -???-???-???-???-???-???-??? -???-???-???-???-???- Negative 150 -???-???-???-???-???-???-??? -???-???-???-???-???- GP - no cram ping or bleeding. Anatomy scan ordered. 08/25/20 -???-???-???-???-???-???-??? -???-???-???-???-???- 17w 5d 149 lb 4 oz 100/64 Negative -???-???-???-???-???-???-??? -???-???-???-???-???- Negative 135 -???-???-???-???-???-???-??? -???-???-???-???-???- GP - no cram ping or bleeding. PRR. Anatomy scan 09/06. [id number]-ku-vqn is throwing gender reveal green party. 09/27/20 -???-???-???-???-???-???-??? -???-???-???-???-???- 22w 3d 153 lb 4 oz 104/60 Trace -???-???-???-???-???-???-??? -???-???-???-???-???- Negative 142 -???-???-???-???-???-???-??? -???-???-???-???-???- -No SAMANTHA, DALI NIEVES. 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 28 wk growth US hx of covid ordered. 10/25/20 -???-???-???-???-???-???-??? -???-???-???-???-???- 26w 3d 159 lb 100/58 Negative -???-???-???-???-???-???-??? -???-???-???-???-???- Negative 141 26 -???-???-???-???-???-???-??? -???-???-???-???-???- -No SAMANTHA. DALI Nieves. Growth US 11/08, Larc. 28 w lab wnl 11/15/20 -???-???-???-???-???-???-??? -???-???-???-???-???- 29w 3d 160 lb 2 oz 108/82 Negative -???-???-???-???-???-???-??? -???-???-???-???-???- Negative 130 29 -???-???-???-???-???-???-??? -???-???-???-???-???- GP - no LOF, VB, DFM, ctx. Decided on Ti for name. GP - no LOF, VB, DFM, ctx. Decided on Ti for name. Discussed medication for allergies 12/06/20 -???-???-???-???-???-???-??? -???-???-???-???-???- 32w 3d 165 lb 102/60 -???-???-???-???-???-???-??? -???-???-???-???-???- 140 33 -???-???-???-???-???-???-??? -???-???-???-???-???- SM- no vb lo f good fm no regular ctx SM- co some left lower groin pain. no vb lof good fm no regular ctx. US today. 12/07/20 -???-???-???-???-???-???-??? -???-???-???-???-???- 32w 4d 165 lb 8 oz 90/56 Negative -???-???-???-???-???-???-??? -???-???-???-???-???- Negative 131 2 -???-???-???-???-???-???-??? -???-???-???-???-???- 40 MH-work in for gush of clear fluid. ROM pending. NO VB. Good FM 12/20/20 -???-???-???-???-???-???-??? -???-???-???-???-???- 34w 3d 163 lb 4 oz 98/60 Negative -???-???-???-???-???-???-??? -???-???-???-???-???- Negative 130 34 Cephalic -???-???-???-???-???-???-??? -???-???-???-???-???- GP - no LOF, VB, DFM, ctx. Discussed routes of delivery. 01/03/21 -???-???-???-???-???-???-??? -???-???-???-???-???- 36w 3d 166 lb 112/66 Negative -???-???-???-???-???-???-??? -???-???-???-???-???- Negative 130 35 Cephalic 2 -???-???-???-???-???-???-??? -???-???-???-???-???- 40 -1 SM- no vb lof good fm no regular ctx gbs today 01/10/21 -???-???-???-???-???-???-??? -???-???-???-???-???- 37w 3d 165 lb 4 oz 100/58 Negative -???-???-???-???-???-???-??? -???-???-???-???-???- Negative 140 37 Cephalic 4 -???-???-???-???-???-???-??? -???-???-???-???-???- 60 -2 GP - no LO F, VB, DFM, ctx. Denies complaints ACOG First Trimester First Trimester: Desire for , Alcohol, Tobacco Cessation, Illicit/Recreational Drug/Substance Use, Intimate Partner Violence, Barriers to care, Unstable Housing, Communication Barriers, Environmental/Work Hazards, Anticipated Course of Care, Toxoplasmosis Precations, Use of Any medications, Sexual activity, Exercise, Dental Care, Sauna/Hot tub use, Seat Belt use, Childbirth classes/Hospital facilities, , Travel, Indications for Ultrasound and Screening for Aneuploidy Second Trimester Second Trimester: Signs and Symptoms of Labor, Selecting a care provider, Reproductive Life Planning Contreception, Depression/Anxiety and Intimate Partner Violence; Discussed Tobacco Cessation Third Trimester Third Trimester: Pain Management Plans, Labor support person(s), Immediate Larc, Circumcision preference, Signs and Symptoms of Preeclampsia, Feeding Yes and Family Medical Leave or Disability Forms Diagnostics Diagnostics Diagnostics: Glucose 1 Hr 50 gm 87 mg/dL (70-140) Hgb 11.6 g/dL (12.0-15.0) L Hct 36.0 % (37-47) L Details: HIV: Urine Culture: Sequential Screen: NIPT Screen: ROS GI Denies dyspepsia, Denies nausea and Denies vomiting Denies abnormal vaginal bleeding, Denies dysuria, Denies pelvic pain, Denies vaginal discharge, Denies vaginal odor and Denies vaginal pruritus Exam Const General: cooperative, healthy appearing, comfortable, no acute distress, well developed and well groomed Nutritional Appearance: average body habitus and well nourished Orientation: alert, awake and oriented x3 [facility] Head: normal to inspection, normocephalic and atraumatic Eyes Pupils: PERRL and accommodation normal Resp Effort Inspection: normal respiratory effort, able to speak in complete sentences and symmetric chest movement Cardio Rate: regular rate GI Palpation: soft, no guarding, no masses and nontender Skin General: no rashes or lesions noted, elasticity normal and turgor normal Neuro General: patient alert, patient awake and patient oriented x3 Cranial Nerves: CN's II-XI intact bilaterally, sense of smell intact, PERRL, accommodation normal and EOM intact bilaterally Speech: speech normal Gait: normal gait Psych Appearance: grossly normal and well kempt Mental Status: mental status grossly normal Mood: congruent mood Affect: normal affect Speech and Movement: speech and movement normal Attitude: cooperative Thought Process: normal Thought Content: normal Judgment: judgment good Results POC Urinalysis 2 Dip (Clinic) Office Urine Glucose Negative Last Edit by Carly Shaw on 01/10/21 08:43 Office Urine Protein Negative Last Edit by Carly Shaw on 01/10/21 08:43 Coding Level of Care Code OB Routine Diagnoses COVID-19 affecting , antepartum O98.519; U07.1 Abnormal Pap smear of cervix R87.619 Abnormal Pap type: unspecified Supervision of other normal Z34.80 Z3A.36 Weeks of gestation: 36 weeks Assessment and Plan Assessment and Plan (1) COVID-19 affecting , antepartum: Status: Acute Comment: Taking baby ASA, plan growth US starting at 28 weeks, 12/06 nl growth, 01/03 nl growth (2) Abnormal Pap smear of cervix: Status: Acute Qualifiers: Abnormal Pap type: unspecified Qualified Code(s): R87.619 - Unspecified abnormal cytological findings in specimens from cervix uteri Comment: colposcopy x2 (3) Supervision of other normal : Status: Acute Comment: PRR ELAINA 01/28/21 Boy! Ti PC: Trae Spouse: Rony (4) : Status: Acute Qualifiers: Weeks of gestation: 36 weeks Qualified Code(s): Z3A.36 - 36 weeks gestation of Comment: declines genetic, ntd, and carrier screening. nl anatomy Plan Details Other Orders: Orders: POC Urinalysis 2 Dip (Clinic) Today 01/10/21 0858 <Electronically signed by Kourtney Ceron MD> Date Kourtney Ceron MD Cosigner Signature: Date (if applicable) CC: Jacqueline Blanco DO Work Phone: Start: 01-03-2021 End: 01-03-2021 Process Operator Office Visit Report Comments: See Note; NOTES: [facility] [address] [place] [address] OFFICE VISIT Date of Service: 01/03/21 MR#: [id number] Acct: [id number] Name: BRIT WALTER Rep #: [id number] : 1995 Provider: Dr. Zayra hinton MD Age/Sex: 25/F Location: [facility] Status: Signed Intake Vital Signs 01/03/21 08:16 01/03/21 08:17 Height 5 ft 7 in Weight: 166 lb BMI 25.9 25.5 BP 112/66 Intake Visit Reasons: 36WK OB Ping Pong Table Assembler Required: No Is patient in pain?: No Allergies gluten Adverse Reaction (Verified 01/03/21 08:17) Upset Stomach Medications multivitamin no.47-iron fum 27 mg-folate no.1 1 mg-dha 300 mg capsule cap PO 06/08/20 [History Confirmed 01/03/21] ondansetron 4 mg disintegrating tablet 4 mg PO Q6H PRN #30 tablet 09/17/20 [Rx Confirmed 01/03/21] cetirizine 10 mg capsule 10 mg PO DAILY PRN 12/06/20 [History Confirmed 01/03/21] Last Menstral Period: 04/21/20 Zika: Zika virus screening: Negative : No PFSH PFSH Medical History (Updated 01/03/21 @ 08:[address] 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 Date Name GA/Weeks Outcome Route Bth Weight Gen Labor Lgth Anesthesia Del Locatn Provider FOB Unknown 02/06/2018- [place] 40 live - full term 8lbs 1oz Female 11 hour s epidural [facility] Dennis Casillas Delivery Date: 7 day post infection - fever ATB x10 days Jennifer,Evelina HPI 36WK OB Details: BRIT WALTER is a 25 year old who presents for routine OB visit. OB Visit ELAINA Calculator Estimated Delivery Date Method Current WG Current Estimate 01/28/21 Ultrasound #1 36w 3d Expected Delivery Route/Plan Labor Preferences- CB/BF classes: no labor support person: Rony labor intervention preferences: minimal intervention. pain management options preferred: desires natural - open to epidural cut cord/dad catch: cord : yes PP control planned: condoms then nuvaring. discussed possible routes of delivery and associated risks: discussed possible delivery modalities and possible indications for each including R/B/A of , VAVD, FAVD, and CS. questions answered. special requests: [] Specific Issue/Plans COVID status: positive during 1st trimester flu vaccine: no tdap vaccine: given rhogam: na LARC form signed: yes movement and labor precautions reviewed. Problem list reviewed and updated with the most current plan of care details and appropriate orders placed. Relevant counseling for the gestational age provided. Continue routine care and follow up unless otherwise noted in visit notes/problem list details Initial Weight: Not Recorded Date -???-???-???-???-???-???-??? -???-???-???-???-???- EGA Weight BP Urine Prot -???-???-???-???-???-???-??? -???-???-???-???-???- Glucose FHR FuHt Pres Dilation -???-???-???-???-???-???-??? -???-???-???-???-???- Effaced St Visit Note 06/30/20 -???-???-???-???-???-???-??? -???-???-???-???-???- 9w 5d 143 lb 2 oz 100/62 -???-???-???-???-???-???-??? -???-???-???-???-???- 175 -???-???-???-???-???-???-??? -???-???-???-???-???- GP - CRL 25m m consistent with LMP. GP - CRL 25mm consistent ELAINA of 01/28. LMP unknown. 07/28/20 -???-???-???-???-???-???-??? -???-???-???-???-???- 13w 5d 142 lb 2 oz 100/64 Negative -???-???-???-???-???-???-??? -???-???-???-???-???- Negative 150 -???-???-???-???-???-???-??? -???-???-???-???-???- GP - no cram ping or bleeding. Anatomy scan ordered. 08/25/20 -???-???-???-???-???-???-??? -???-???-???-???-???- 17w 5d 149 lb 4 oz 100/64 Negative -???-???-???-???-???-???-??? -???-???-???-???-???- Negative 135 -???-???-???-???-???-???-??? -???-???-???-???-???- GP - no cram ping or bleeding. PRR. Anatomy scan 09/06. [id number] is throwing gender reveal green party. 09/27/20 -???-???-???-???-???-???-??? -???-???-???-???-???- 22w 3d 153 lb 4 oz 104/60 Trace -???-???-???-???-???-???-??? -???-???-???-???-???- Negative 142 -???-???-???-???-???-???-??? -???-???-???-???-???- -No VB, DALI NIEVES. 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 28 wk growth US hx of covid ordered. 10/25/20 -???-???-???-???-???-???-??? -???-???-???-???-???- 26w 3d 159 lb 100/58 Negative -???-???-???-???-???-???-??? -???-???-???-???-???- Negative 141 26 -???-???-???-???-???-???-??? -???-???-???-???-???- -No SAMANTHA. DALI Nieves. Growth US 11/08, Larc. 28 w lab wnl 11/15/20 -???-???-???-???-???-???-??? -???-???-???-???-???- 29w 3d 160 lb 2 oz 108/82 Negative -???-???-???-???-???-???-??? -???-???-???-???-???- Negative 130 29 -???-???-???-???-???-???-??? -???-???-???-???-???- GP - no LOF, VB, DFM, ctx. Decided on Ti for name. GP - no LOF, VB, DFM, ctx. Decided on Ti for name. Discussed medication for allergies 12/06/20 -???-???-???-???-???-???-??? -???-???-???-???-???- 32w 3d 165 lb 102/60 -???-???-???-???-???-???-??? -???-???-???-???-???- 140 33 -???-???-???-???-???-???-??? -???-???-???-???-???- SM- no vb lo f good fm no regular ctx SM- co some left lower groin pain. no vb lof good fm no regular ctx. US today. 12/07/20 -???-???-???-???-???-???-??? -???-???-???-???-???- 32w 4d 165 lb 8 oz 90/56 Negative -???-???-???-???-???-???-??? -???-???-???-???-???- Negative 131 2 -???-???-???-???-???-???-??? -???-???-???-???-???- 40 MH-work in for gush of clear fluid. ROM pending. NO VB. Good FM 12/20/20 -???-???-???-???-???-???-??? -???-???-???-???-???- 34w 3d 163 lb 4 oz 98/60 Negative -???-???-???-???-???-???-??? -???-???-???-???-???- Negative 130 34 Cephalic -???-???-???-???-???-???-??? -???-???-???-???-???- GP - no LOF, VB, DFM, ctx. Discussed routes of delivery. 01/03/21 -???-???-???-???-???-???-??? -???-???-???-???-???- 36w 3d 166 lb 112/66 Negative -???-???-???-???-???-???-??? -???-???-???-???-???- Negative 130 35 Cephalic 2 -???-???-???-???-???-???-??? -???-???-???-???-???- 40 -1 SM- no vb lof good fm no regular ctx gbs today ACOG First Trimester First Trimester: Desire for , Alcohol, Tobacco Cessation, Illicit/Recreational Drug/Substance Use, Intimate Partner Violence, Barriers to care, Unstable Housing, Communication Barriers, Environmental/Work Hazards, Anticipated Course of Care, Toxoplasmosis Precations, Use of Any medications, Sexual activity, Exercise, Dental Care, Sauna/Hot tub use, Seat Belt use, Childbirth classes/Hospital facilities, , Travel, Indications for Ultrasound and Screening for Aneuploidy Second Trimester Second Trimester: Signs and Symptoms of Labor, Selecting a care provider, Reproductive Life Planning Contreception, Depression/Anxiety and Intimate Partner Violence; Discussed Tobacco Cessation Third Trimester Third Trimester: Pain Management Plans, Labor support person(s), Immediate Larc, Circumcision preference, Signs and Symptoms of Preeclampsia, Feeding Yes and Family Medical Leave or Disability Forms Diagnostics Diagnostics Diagnostics: Blood Type A POSITIVE Antibody Screen NEGATIVE Glucose 1 Hr 50 gm 87 mg/dL (70-140) HIV 1 2 Antibody Non-Reactive (Nonreactive) Rubella IgG Antibody Reactive (Nonreactive) Hgb 11.6 g/dL (12.0-15.0) L Hct 36.0 % (37-47) L RPR NONREACTIVE (NONREACTIVE) N.gonorrhoeae DNA (SWAPNA) Negative Details: HIV: Urine Culture: Sequential Screen: NIPT Screen: Results POC Urinalysis 2 Dip (Clinic) Office Urine Glucose Negative Last Edit by Karena Bernal on 01/03/21 08:22 Office Urine Protein Negative Last Edit by Karena Bernal on 01/03/21 08:22 Coding Level of Care Code OB Routine Diagnoses COVID-19 affecting , antepartum O98.519; U07.1 Abnormal Pap smear of cervix R87.619 Abnormal Pap type: unspecified Supervision of other normal Z34.80 Z3A.36 Weeks of gestation: 36 weeks Assessment and Plan Assessment and Plan (1) COVID-19 affecting , antepartum: Status: Acute Comment: Taking baby ASA, plan growth US starting at 28 weeks, 12/06 nl growth (2) Abnormal Pap smear of cervix: Status: Acute Qualifiers: Abnormal Pap type: unspecified Qualified Code(s): R87.619 - Unspecified abnormal cytological findings in specimens from cervix uteri Comment: colposcopy x2 (3) Supervision of other normal : Status: Acute Comment: PRR ELAINA 01/28/21 Boy! Ti PC: Trae Spouse: Rony Orders: Orders: Culture, Group B Streptococcus Today (4) : Status: Acute Qualifiers: Weeks of gestation: 36 weeks Qualified Code(s): Z3A.36 - 36 weeks gestation of Comment: declines genetic, ntd, and carrier screening. nl anatomy Plan Details Other Orders: Orders: POC Urinalysis 2 Dip (Clinic) Today 01/03/21 0840 <Electronically signed by Zayra Marquez MD> Date Zayra Marquez MD Cosigner Signature: Date (if applicable) CC: Jacqueline Blanco DO Work Phone: Start: 01-03-2021 End: 01-03-2021 OB Limited With Biometrics Comments: See Note; NOTES: [facility] Imaging Services [address] [place] [address] OB Limited With Biometrics MR#: [id number] Acct: [id number] Name: BRIT WALTER Rep #: [id number] : 1995 F 25 From: Torito salomon MD PCP: Dr. Jacqueline Blanco, Status: REG CLI Study: OB Limited With Biometrics Date of Exam: 01/03 Exam# [id number] Ordering Dr: Kourtney Ceron MD STUDY: SECOND AND THIRD TRIMESTER OBSTETRICAL ULTRASOUND - LIMITED REASON FOR EXAM: Female, 25 years old . growth. History of Covid. LMP: 04/23/2020. PRIOR ULTRASOUND: Comparison is made with prior study of 12/06/2020. TECHNIQUE: Transabdominal TECHNICAL QUALITY: Adequate. FINDINGS: There is a single intrauterine fetus. The fetus is in a cephalic presentation. There is demonstrated cardiac activity with a heart rate of 147 bpm. There is a normal amniotic fluid volume. The largest amniotic fluid pocket measures 5.9 cm. The amniotic fluid index (JOVITA) is 20.6 cm. The placenta is anterior in location and is not low lying. There are Grade 2 placental changes. The cervix was not measured due to head positioning. BIOMETRY: BPD: 9.3 cm: 37 weeks, 4 days HC: 33.2 cm: 37 weeks, 5 days AC: 31.5 cm: 35 weeks, 3 days FL: 6.9 cm: 35 weeks, 2 days Age by LMP: 36 weeks, 3 days. ELAINA by LMP: 03/30/2021. age by prior US: 37 weeks, 6 days. ELAINA by prior US: 01/11/2021. age by current US: 36 weeks, 4 days. ELAINA by current US: 01/27/2021. Estimated weight: 2810 grams, +/- 422 grams, 40 percentile. Cord is seen along the posterior aspect of the neck. US/OB Limited With Biometrics IMPRESSION: Single live intrauterine gestation with a mean gestational age of 37 weeks and 6 days. The measurements obtained today fall within the normal expected range. Electronically Signed: Torito Jordan MD at 13:43 EDT , Service support , CC: Dr. Kourtney Ceron MD; Dr. Jacqueline Blanco DO Air Quality Consultant: Signed Jacqueline Blanco DO Work Phone: Start: 12-20-2020 End: 12-20-2020 Process Operator Office Visit Report Comments: See Note; NOTES: [facility] [address] [place] [address]. [address] [place], [place] [address] OFFICE VISIT Date of Service: 12/20/20 MR#: [id number] Acct: [id number] Name: BRIT WALTER Rep #: [id number] : 1995 Provider: Dr. Kourtney snow MD Age/Sex: 25/F Location: [facility] Status: Signed Intake Vital Signs 12/20/20 08:51 12/20/20 08:51 Height 5 ft 7 in Weight: 163 lb 4 oz BMI 24.0 25.5 BP 98/60 Intake Visit Reasons: 34WK OB Ping Pong Table Assembler Required: No Is patient in pain?: No Allergies gluten Adverse Reaction (Verified 12/20/20 08:51) Upset Stomach Medications multivitamin no.47-iron fum 27 mg-folate no.1 1 mg-dha 300 mg capsule cap PO 06/08/20 [History Confirmed 12/20/20] ondansetron 4 mg disintegrating tablet 4 mg PO Q6H PRN #30 tablet 09/17/20 [Rx Confirmed 12/20/20] cetirizine 10 mg capsule 10 mg PO DAILY PRN 12/06/20 [History Confirmed 12/20/20] Last Menstral Period: 04/21/20 Zika: Zika virus screening: Negative : No PFSH PFSH Medical History (Updated 12/20/20 @ 08:51 by Karena Bernal) Anxiety Social History household members: family housing: house number of children: 1 Smoking Status: Never smoker alcohol intake: current details: social substance use type: does not use what type of physical activity do you participate in: none seatbelt use: always do you feel safe at home: Yes 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 Date Name GA/Weeks Outcome Route Bth Weight Gen Labor Lgth Anesthesia Del [facility] Provider FOB Unknown 02/06/2018- [place] 40 live - full term 8lbs 1oz Female 11 hour s epidural [facility] Dennis Casillas Delivery Date: 7 day post infection - fever ATB x10 days Evelina Rodriguez HPI 34WK OB Details: BRIT WALTER is a 25 year old who presents for routine OB visit. OB Visit ELAINA Calculator Estimated Delivery Date Method Current WG Current Estimate 01/28/21 Ultrasound #1 34w 3d Expected Delivery Route/Plan Labor Preferences- CB/BF classes: no labor support person: Rony labor intervention preferences: minimal intervention. pain management options preferred: desires natural - open to epidural cut cord/dad catch: cord : yes PP control planned: condoms then nuvaring. discussed possible routes of delivery and associated risks: discussed possible delivery modalities and possible indications for each including R/B/A of , VAVD, FAVD, and CS. questions answered. special requests: [] Specific Issue/Plans COVID status: positive during 1st trimester flu vaccine: no tdap vaccine: given rhogam: na LARC form signed: yes movement and labor precautions reviewed. Problem list reviewed and updated with the most current plan of care details and appropriate orders placed. Relevant counseling for the gestational age provided. Continue routine care and follow up unless otherwise noted in visit notes/problem list details Initial Weight: Not Recorded Date -???-???-???-???-???-???-??? -???-???-???-???-???- EGA Weight BP Urine Prot -???-???-???-???-???-???-??? -???-???-???-???-???- Glucose FHR FuHt Pres Dilation -???-???-???-???-???-???-??? -???-???-???-???-???- Effaced St Visit Note 06/30/20 -???-???-???-???-???-???-??? -???-???-???-???-???- 9w 5d 143 lb 2 oz 100/62 -???-???-???-???-???-???-??? -???-???-???-???-???- 175 -???-???-???-???-???-???-??? -???-???-???-???-???- GP - CRL 25m m consistent with LMP. GP - CRL 25mm consistent ELAINA of 01/28. LMP unknown. 07/28/20 -???-???-???-???-???-???-??? -???-???-???-???-???- 13w 5d 142 lb 2 oz 100/64 Negative -???-???-???-???-???-???-??? -???-???-???-???-???- Negative 150 -???-???-???-???-???-???-??? -???-???-???-???-???- GP - no cram ping or bleeding. Anatomy scan ordered. 08/25/20 -???-???-???-???-???-???-??? -???-???-???-???-???- 17w 5d 149 lb 4 oz 100/64 Negative -???-???-???-???-???-???-??? -???-???-???-???-???- Negative 135 -???-???-???-???-???-???-??? -???-???-???-???-???- GP - no cram ping or bleeding. PRR. Anatomy scan 09/06. [id number] is throwing gender reveal green party. 09/27/20 -???-???-???-???-???-???-??? -???-???-???-???-???- 22w 3d 153 lb 4 oz 104/60 Trace -???-???-???-???-???-???-??? -???-???-???-???-???- Negative 142 -???-???-???-???-???-???-??? -???-???-???-???-???- -No SAMANTHA, DALI Varghese FM. 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 28 wk growth US hx of covid ordered. 10/25/20 -???-???-???-???-???-???-??? -???-???-???-???-???- 26w 3d 159 lb 100/58 Negative -???-???-???-???-???-???-??? -???-???-???-???-???- Negative 141 26 -???-???-???-???-???-???-??? -???-???-???-???-???- -No VB. LO F. Good Fm. Growth US 11/08, Larc. 28 w lab wnl 11/15/20 -???-???-???-???-???-???-??? -???-???-???-???-???- 29w 3d 160 lb 2 oz 108/82 Negative -???-???-???-???-???-???-??? -???-???-???-???-???- Negative 130 29 -???-???-???-???-???-???-??? -???-???-???-???-???- GP - no LOF, VB, DFM, ctx. Decided on Ti for name. GP - no LOF, VB, DFM, ctx. Decided on Ti for name. Discussed medication for allergies 12/06/20 -???-???-???-???-???-???-??? -???-???-???-???-???- 32w 3d 165 lb 102/60 -???-???-???-???-???-???-??? -???-???-???-???-???- 140 33 -???-???-???-???-???-???-??? -???-???-???-???-???- SM- no vb lo f good fm no regular ctx SM- co some left lower groin pain. no vb lof good fm no regular ctx. US today. 12/07/20 -???-???-???-???-???-???-??? -???-???-???-???-???- 32w 4d 165 lb 8 oz 90/56 Negative -???-???-???-???-???-???-??? -???-???-???-???-???- Negative 131 2 -???-???-???-???-???-???-??? -???-???-???-???-???- 40 MH-work in for gush of clear fluid. ROM pending. NO VB. Good FM 12/20/20 -???-???-???-???-???-???-??? -???-???-???-???-???- 34w 3d 163 lb 4 oz 98/60 Negative -???-???-???-???-???-???-??? -???-???-???-???-???- Negative 130 34 Cephalic -???-???-???-???-???-???-??? -???-???-???-???-???- GP - no LOF, VB, DFM, ctx. Discussed routes of delivery. ACOG First Trimester First Trimester: Desire for , Alcohol, Tobacco Cessation, Illicit/Recreational Drug/Substance Use, Intimate Partner Violence, Barriers to care, Unstable Housing, Communication Barriers, Environmental/Work Hazards, Anticipated Course of Care, Toxoplasmosis Precations, Use of Any medications, Sexual activity, Exercise, Dental Care, Sauna/Hot tub use, Seat Belt use, Childbirth classes/Hospital facilities, , Travel, Indications for Ultrasound and Screening for Aneuploidy Second Trimester Second Trimester: Signs and Symptoms of Labor, Selecting a care provider, Reproductive Life Planning Contreception, Depression/Anxiety and Intimate Partner Violence; Discussed Tobacco Cessation Third Trimester Third Trimester: Pain Management Plans, Labor support person(s), Immediate Larc, Circumcision preference, Signs and Symptoms of Preeclampsia, Infant Feeding Yes and Family Medical Leave or Disability Forms Diagnostics Diagnostics Diagnostics: Blood Type A POSITIVE Antibody Screen NEGATIVE Glucose 1 Hr 50 gm 87 mg/dL (70-140) HIV 1 2 Antibody Non-Reactive (Nonreactive) Rubella IgG Antibody Reactive (Nonreactive) Hgb 11.6 g/dL (12.0-15.0) L Hct 36.0 % (37-47) L RPR NONREACTIVE (NONREACTIVE) N.gonorrhoeae DNA (SWAPNA) Negative Details: HIV: Urine Culture: Sequential Screen: NIPT Screen: ROS GI Denies dyspepsia, Denies nausea and Denies vomiting Denies abnormal vaginal bleeding, Denies dysuria, Denies pelvic pain, Denies vaginal discharge, Denies vaginal odor and Denies vaginal pruritus Exam Const General: cooperative, healthy appearing, comfortable, no acute distress, well developed and well groomed Nutritional Appearance: average body habitus and well nourished Orientation: alert, awake and oriented x3 HENMT Head: normal to inspection, normocephalic and atraumatic Eyes Pupils: PERRL and accommodation normal Resp Effort Inspection: normal respiratory effort, able to speak in complete sentences and symmetric chest movement Cardio Rate: regular rate GI Palpation: soft, no guarding, no masses and nontender Skin General: no rashes or lesions noted, elasticity normal and turgor normal Neuro General: patient alert, patient awake and patient oriented x3 Cranial Nerves: CN's II-XI intact bilaterally, sense of smell intact, PERRL, accommodation normal and EOM intact bilaterally Speech: speech normal Gait: normal gait Psych Appearance: grossly normal and well kempt Mental Status: mental status grossly normal Mood: congruent mood Affect: normal affect Speech and Movement: speech and movement normal Attitude: cooperative Thought Process: normal Thought Content: normal Judgment: judgment good Results POC Urinalysis 2 Dip (Clinic) Office Urine Glucose Negative Last Edit by Karena Bernal on 12/20/20 08:56 Office Urine Protein Negative Last Edit by Karena Bernal on 12/20/20 08:56 Coding Level of Care Code OB Routine Diagnoses COVID-19 affecting , antepartum O98.519; U07.1 Abnormal Pap smear of cervix R87.619 Abnormal Pap type: unspecified Supervision of other normal Z34.80 Z3A.34 Weeks of gestation: 34 weeks Assessment and Plan Assessment and Plan (1) COVID-19 affecting , antepartum: Status: Acute Comment: Taking baby ASA, plan growth US starting at 28 weeks, 12/06 nl growth (2) Abnormal Pap smear of cervix: Status: Acute Qualifiers: Abnormal Pap type: unspecified Qualified Code(s): R87.619 - Unspecified abnormal cytological findings in specimens from cervix uteri Comment: colposcopy x2 (3) Supervision of other normal : Status: Acute Comment: PRR ELAINA 01/28/21 Boy! Ti PC: Trae Spouse: Rony (4) : Status: Acute Qualifiers: Weeks of gestation: 34 weeks Qualified Code(s): Z3A.34 - 34 weeks gestation of Comment: declines genetic and carrier. nl anatomy Plan Details Other Orders: Orders: POC Urinalysis 2 Dip (Clinic) Today 12/20/20 0909 <Electronically signed by Kourtney Ceron MD> Date Kourtney Ceron MD Cosigner Signature: Date (if applicable) CC: Jacqueline Blanco DO Work Phone: Start: 12-07-2020 End: 12-07-2020 Process Operator Office Visit Report Comments: See Note; NOTES: [facility] [address] [place] [address] OFFICE VISIT Date of Service: 12/07/20 MR#: [id number] Acct: [id number] Name: BRIT WALTER Rep #: [id number] : 1995 Provider: DAYTON campo Age/Sex: 25/F Location: [facility] Status: Signed Intake Vital Signs 12/07/20 11:35 12/07/20 11:37 Height 5 ft 7 in Weight: 165 lb 8 oz BMI 25.9 24.0 BP 90/56 L Intake Visit Reasons: ROM Allergies gluten Adverse Reaction (Verified 12/07/20 11:35) Upset Stomach Medications multivitamin no.47-iron fum 27 mg-folate no.1 1 mg-dha 300 mg capsule cap PO 06/08/20 [History Confirmed 12/07/20] ondansetron 4 mg disintegrating tablet 4 mg PO Q6H PRN #30 tablet 09/17/20 [Rx Confirmed 12/07/20] cetirizine 10 mg capsule 10 mg PO DAILY PRN 12/06/20 [History Confirmed 12/07/20] Last Menstral Period: 04/21/20 Zika: Zika virus screening: Negative : No PFSH PFSH Medical History Anxiety Social History household members: family housing: house number of children: 1 Smoking Status: Never smoker alcohol intake: current details: social substance use type: does not use what type of physical activity do you participate in: none seatbelt use: always do you feel safe at home: Yes 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 Date Name GA/Weeks Outcome Route Bth Weight Gen Labor Lgth Anesthesia Del Locatn Provider FOB Unknown 02/06/2018- [place] 40 live - full term 8lbs 1oz Female 11 hour s epidural [facility] Dennis Casillas Delivery Date: 7 day post infection - fever ATB x10 days Evelina Rodriguez HPI ROM Details: BRIT WALTER is a 25 year old who presents for routine OB visit. OB Visit ELAINA Calculator Estimated Delivery Date Method Current WG Current Estimate 01/28/21 Ultrasound #1 32w 4d Expected Delivery Route/Plan Labor Preferences- CB/BF classes: no labor support person: Rony labor intervention preferences: minimal intervention. pain management options preferred: epidural cut cord/dad catch: cord : yes PP control planned: condoms then nuvaring. discussed possible routes of delivery and associated risks: [] special requests: [] Specific Issue/Plans COVID status: positive during 1st trimester flu vaccine: no tdap vaccine: given rhogam: na LARC form signed: yes movement and labor precautions reviewed. Problem list reviewed and updated with the most current plan of care details and appropriate orders placed. Relevant counseling for the gestational age provided. Continue routine care and follow up unless otherwise noted in visit notes/problem list details Initial Weight: Not Recorded Date -???-???-???-???-???-???-??? -???-???-???-???-???- EGA Weight BP Urine Prot -???-???-???-???-???-???-??? -???-???-???-???-???- Glucose FHR FuHt Pres Dilation -???-???-???-???-???-???-??? -???-???-???-???-???- Effaced St Visit Note 06/30/20 -???-???-???-???-???-???-??? -???-???-???-???-???- 9w 5d 143 lb 2 oz 100/62 -???-???-???-???-???-???-??? -???-???-???-???-???- 175 -???-???-???-???-???-???-??? -???-???-???-???-???- GP - CRL 25m m consistent with LMP. GP - CRL 25mm consistent ELAINA of 01/28. LMP unknown. 07/28/20 -???-???-???-???-???-???-??? -???-???-???-???-???- 13w 5d 142 lb 2 oz 100/64 Negative -???-???-???-???-???-???-??? -???-???-???-???-???- Negative 150 -???-???-???-???-???-???-??? -???-???-???-???-???- GP - no cram ping or bleeding. Anatomy scan ordered. 08/25/20 -???-???-???-???-???-???-??? -???-???-???-???-???- 17w 5d 149 lb 4 oz 100/64 Negative -???-???-???-???-???-???-??? -???-???-???-???-???- Negative 135 -???-???-???-???-???-???-??? -???-???-???-???-???- GP - no cram ping or bleeding. PRR. Anatomy scan 09/06. Yenbyt-cz-wom is throwing gender reveal green party. 09/27/20 -???-???-???-???-???-???-??? -???-???-???-???-???- 22w 3d 153 lb 4 oz 104/60 Trace -???-???-???-???-???-???-??? -???-???-???-???-???- Negative 142 -???-???-???-???-???-???-??? -???-???-???-???-???- -No VB, DALI Varghese FM. 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 28 wk growth US hx of covid ordered. 10/25/20 -???-???-???-???-???-???-??? -???-???-???-???-???- 26w 3d 159 lb 100/58 Negative -???-???-???-???-???-???-??? -???-???-???-???-???- Negative 141 26 -???-???-???-???-???-???-??? -???-???-???-???-???- -No SAMANTHA. DALI Varghese Fm. Growth US /17, Larc. 28 w lab wnl 11/15/20 -???-???-???-???-???-???-??? -???-???-???-???-???- 29w 3d 160 lb 2 oz 108/82 Negative -???-???-???-???-???-???-??? -???-???-???-???-???- Negative 130 29 -???-???-???-???-???-???-??? -???-???-???-???-???- GP - no LOF, VB, DFM, ctx. Decided on Ti for name. GP - no LOF, VB, DFM, ctx. Decided on Ti for name. Discussed medication for allergies 12/06/20 -???-???-???-???-???-???-??? -???-???-???-???-???- 32w 3d 165 lb 102/60 -???-???-???-???-???-???-??? -???-???-???-???-???- 140 33 -???-???-???-???-???-???-??? -???-???-???-???-???- SM- no vb lo f good fm no regular ctx SM- co some left lower groin pain. no vb lof good fm no regular ctx. US today. 12/07/20 -???-???-???-???-???-???-??? -???-???-???-???-???- 32w 4d 165 lb 8 oz 90/56 Negative -???-???-???-???-???-???-??? -???-???-???-???-???- Negative 131 2 -???-???-???-???-???-???-??? -???-???-???-???-???- 40 MH-work in for gush of clear fluid. ROM pending. NO VB. Good FM ACOG First Trimester First Trimester: Desire for , Alcohol, Tobacco Cessation, Illicit/Recreational Drug/Substance Use, Intimate Partner Violence, Barriers to care, Unstable Housing, Communication Barriers, Environmental/Work Hazards, Anticipated Course of Care, Toxoplasmosis Precations, Use of Any medications, Sexual activity, Exercise, Dental Care, Sauna/Hot tub use, Seat Belt use, Childbirth classes/Hospital facilities, , Travel, Indications for Ultrasound and Screening for Aneuploidy Second Trimester Second Trimester: Signs and Symptoms of Labor, Selecting a care provider, Reproductive Life Planning Contreception, Depression/Anxiety and Intimate Partner Violence; Discussed Tobacco Cessation Third Trimester Third Trimester: Pain Management Plans, Labor support person(s), Immediate Larc, Circumcision preference, Signs and Symptoms of Preeclampsia, Feeding Yes and Family Medical Leave or Disability Forms Diagnostics Diagnostics Diagnostics: Blood Type A POSITIVE Antibody Screen NEGATIVE Glucose 1 Hr 50 gm 87 mg/dL (70-140) HIV 1 2 Antibody Non-Reactive (Nonreactive) Rubella IgG Antibody Reactive (Nonreactive) Hgb 11.6 g/dL (12.0-15.0) L Hct 36.0 % (37-47) L RPR NONREACTIVE (NONREACTIVE) N.gonorrhoeae DNA (SWAPNA) Negative Details: HIV: Urine Culture: Sequential Screen: NIPT Screen: Results POC Urinalysis 2 Dip (Clinic) Office Urine Glucose Negative Last Edit by Carly Shaw on 12/07/20 11:39 Office Urine Protein Negative Last Edit by Carly Shaw on 12/07/20 11:39 Coding Level of Care Code OB Routine Diagnoses Vaginal discharge during O26.899; N89.8 Assessment and Plan Assessment and Plan (1) Vaginal discharge during : Plan - Vicenta Sandoval NP, SITE SAFETY MANAGER-C: Stat ROM pending Plan Details Other Orders: Orders: POC Urinalysis 2 Dip (Clinic) Today (ROM) Rupture Of Membranes Today O42.90 12/07/20 1149 <Electronically signed by Vicenta Sandoval NP SITE SAFETY MANAGER-C> Date Vicenta Sandoval NP SITE SAFETY MANAGER-C Cosigner Signature: Date (if applicable) CC: Jacqueline Blanco DO Work Phone: Start: 12-06-2020 End: 12-06-2020 Process Operator Office Visit Report Comments: See Note; NOTES: [facility] [address] [place] [address] OFFICE VISIT Date of Service: 12/06/20 MR#: [id number] Acct: [id number] Name: BRIT WALTER Rep #: [id number] : 1995 Provider: Dr. Zayra hinton MD Age/Sex: 25/F Location: [facility] Status: Signed Intake Vital Signs 12/06/20 08:04 12/06/20 08:05 Height 5 ft 7 in Weight: 165 lb BMI 25.8 24.0 BP 102/60 Intake Visit Reasons: 32WK OB Chief Complaint: est ob Ping Pong Table Assembler Required: No Is patient in pain?: No Allergies gluten Adverse Reaction (Verified 11/15/20 08:29) Upset Stomach Medications multivitamin no.47-iron fum 27 mg-folate no.1 1 mg-dha 300 mg capsule cap PO 06/08/20 [History Confirmed 12/06/20] ondansetron 4 mg disintegrating tablet 4 mg PO Q6H PRN #30 tablet 09/17/20 [Rx Confirmed 12/06/20] cetirizine 10 mg capsule 10 mg PO DAILY PRN 12/06/20 [History Confirmed 12/06/20] Last Menstral Period: 04/21/20 Zika: Zika virus screening: Negative : No PFSH PFSH Medical History (Updated 12/06/20 @ 08:[address] 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 Date Name GA/Weeks Outcome Route Bth Weight Infant Gen [facility] 02[facility]/2018- Trae 40 live - full term 8lbs 1oz Female 11 hour s epidural [facility] Dennis Casillas Delivery Date: 7 day post infection - fever ATB x10 days Evelina Rodriguez HPI 32WK OB Details: BRIT WALTER is a 25 year old who presents for routine OB visit. OB Visit ELAINA Calculator Estimated Delivery Date Method Current WG Current Estimate 01/28/21 Ultrasound #1 32w 3d Expected Delivery Route/Plan Labor Preferences- CB/BF classes: no labor support person: Rony labor intervention preferences: minimal intervention. pain management options preferred: epidural cut cord/dad catch: cord : yes PP control planned: condoms then nuvaring. discussed possible routes of delivery and associated risks: [] special requests: [] Specific Issue/Plans COVID status: positive during 1st trimester flu vaccine: no tdap vaccine: given rhogam: na LARC form signed: yes movement and labor precautions reviewed. Problem list reviewed and updated with the most current plan of care details and appropriate orders placed. Relevant counseling for the gestational age provided. Continue routine care and follow up unless otherwise noted in visit notes/problem list details Initial Weight: Not Recorded Date -???-???-???-???-???-???-??? -???-???-???-???-???- EGA Weight BP Urine Prot -???-???-???-???-???-???-??? -???-???-???-???-???- Glucose FHR FuHt Pres Dilation -???-???-???-???-???-???-??? -???-???-???-???-???- Effaced St Visit Note 06/30/20 -???-???-???-???-???-???-??? -???-???-???-???-???- 9w 5d 143 lb 2 oz 100/62 -???-???-???-???-???-???-??? -???-???-???-???-???- 175 -???-???-???-???-???-???-??? -???-???-???-???-???- GP - CRL 25m m consistent with LMP. GP - CRL 25mm consistent ELAINA of 01/28. LMP unknown. 07/28/20 -???-???-???-???-???-???-??? -???-???-???-???-???- 13w 5d 142 lb 2 oz 100/64 Negative -???-???-???-???-???-???-??? -???-???-???-???-???- Negative 150 -???-???-???-???-???-???-??? -???-???-???-???-???- GP - no cram ping or bleeding. Anatomy scan ordered. 08/25/20 -???-???-???-???-???-???-??? -???-???-???-???-???- 17w 5d 149 lb 4 oz 100/64 Negative -???-???-???-???-???-???-??? -???-???-???-???-???- Negative 135 -???-???-???-???-???-???-??? -???-???-???-???-???- GP - no cram ping or bleeding. PRR. Anatomy scan 09/06. Txmtky-kq-ojg is throwing gender reveal green party. 09/27/20 -???-???-???-???-???-???-??? -???-???-???-???-???- 22w 3d 153 lb 4 oz 104/60 Trace -???-???-???-???-???-???-??? -???-???-???-???-???- Negative 142 -???-???-???-???-???-???-??? -???-???-???-???-???- -No SAMANTHA, DALI NIEVES. 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 28 wk growth US hx of covid ordered. 10/25/20 -???-???-???-???-???-???-??? -???-???-???-???-???- 26w 3d 159 lb 100/58 Negative -???-???-???-???-???-???-??? -???-???-???-???-???- Negative 141 26 -???-???-???-???-???-???-??? -???-???-???-???-???- -No SAMANTHA. DALI Nieves. Growth US /17, Larc. 28 w lab wnl 11/15/20 -???-???-???-???-???-???-??? -???-???-???-???-???- 29w 3d 160 lb 2 oz 108/82 Negative -???-???-???-???-???-???-??? -???-???-???-???-???- Negative 130 29 -???-???-???-???-???-???-??? -???-???-???-???-???- GP - no LOF, VB, DFM, ctx. Decided on Ti for name. GP - no LOF, VB, DFM, ctx. Decided on Ti for name. Discussed medication for allergies 12/06/20 -???-???-???-???-???-???-??? -???-???-???-???-???- 32w 3d 165 lb 102/60 -???-???-???-???-???-???-??? -???-???-???-???-???- 140 33 -???-???-???-???-???-???-??? -???-???-???-???-???- SM- no vb lo f good fm no regular ctx SM- co some left lower groin pain. no vb lof good fm no regular ctx. US today. ACOG First Trimester First Trimester: Desire for , Alcohol, Tobacco Cessation, Illicit/Recreational Drug/Substance Use, Intimate Partner Violence, Barriers to care, Unstable Housing, Communication Barriers, Environmental/Work Hazards, Anticipated Course of Care, Toxoplasmosis Precations, Use of Any medications, Sexual activity, Exercise, Dental Care, Sauna/Hot tub use, Seat Belt use, Childbirth classes/Hospital facilities, , Travel, Indications for Ultrasound and Screening for Aneuploidy Second Trimester Second Trimester: Signs and Symptoms of Labor, Selecting a care provider, Reproductive Life Planning Contreception, Depression/Anxiety and Intimate Partner Violence; Discussed Tobacco Cessation Third Trimester Third Trimester: Pain Management Plans, Labor support person(s), Immediate Larc, Circumcision preference, Signs and Symptoms of Preeclampsia, Feeding Yes and Family Medical Leave or Disability Forms Diagnostics Diagnostics Diagnostics: Blood Type A POSITIVE Antibody Screen NEGATIVE Glucose 1 Hr 50 gm 87 mg/dL (70-140) HIV 1 2 Antibody Non-Reactive (Nonreactive) Rubella IgG Antibody Reactive (Nonreactive) Hgb 11.6 g/dL (12.0-15.0) L Hct 36.0 % (37-47) L RPR NONREACTIVE (NONREACTIVE) N.gonorrhoeae DNA (WSAPNA) Negative Details: HIV: Urine Culture: Sequential Screen: NIPT Screen: Coding Level of Care Code OB Routine Diagnoses Z3A.29 Weeks of gestation: 29 weeks Supervision of other normal Z34.80 Abnormal Pap smear of cervix R87.619 Abnormal Pap type: unspecified COVID-19 affecting , antepartum O98.519; U07.1 Assessment and Plan Assessment and Plan (1) : Status: Acute Qualifiers: Weeks of gestation: 29 weeks Qualified Code(s): Z3A.29 - 29 weeks gestation of Comment: declines genetic and carrier. nl anatomy (2) Supervision of other normal : Status: Acute Comment: PRR ELAINA 01/28/21 Boy! Ti PC: Trae Spouse: Rony (3) Abnormal Pap smear of cervix: Status: Acute Qualifiers: Abnormal Pap type: unspecified Qualified Code(s): R87.619 - Unspecified abnormal cytological findings in specimens from cervix uteri Comment: colposcopy x2 (4) COVID-19 affecting , antepartum: Status: Acute Comment: Taking baby ASA, plan growth US starting at 28 weeks, 11/08 nl growth 12/06/20 0826 <Electronically signed by Zayra Marquez MD> Date Zayra Marquez MD Cosigner Signature: Date (if applicable) CC: Jacqueline Blanco DO Work Phone: Start: 12-06-2020 End: 12-06-2020 OB Limited With Biometrics Comments: See Note; NOTES: [facility] Imaging Services [address] [place] [address] OB Limited With Biometrics MR#: [id number] Acct: [id number] Name: BRIT WALTER Rep #: [id number] : 1995 F 25 From: Torito salomon MD PCP: Dr. Jacqueline Blanco, DO Status: REG CLI Study: OB Limited With Biometrics Date of Exam: 12/06 Exam# [id number] Ordering Dr: Kourtney Ceron MD STUDY: SECOND AND THIRD TRIMESTER OBSTETRICAL ULTRASOUND - LIMITED REASON FOR EXAM: Female, 25 years old . growth. LMP: 04/23/2020. PRIOR ULTRASOUND: Comparison is made with prior study dated 11/08/2020. TECHNIQUE: Transabdominal TECHNICAL QUALITY: Adequate. FINDINGS: There is a single intrauterine fetus. The fetus is in a cephalic presentation. There is demonstrated cardiac activity with a heart rate of 124 bpm. There is a normal amniotic fluid volume. The largest amniotic fluid pocket measures 6.18 cm. The amniotic fluid index (JOVITA) is 19.9 cm. The placenta is anterior in location and is not low lying. There are Grade 1 placental changes. The cervix measures 3 cm in length. BIOMETRY: BPD: 8.6 cm: 34 weeks, 4 days HC: 31.48 cm: 35 weeks, 2 days AC: 28.77 cm: 32 weeks, 5 days FL: 6.2 cm: 32 weeks, 1 days Age by LMP: 32 weeks, 3 days. ELAINA by LMP: 01/28/2021. age by prior US: 33 weeks, 2 days. ELAINA by prior US: 04/24/2021. age by current US: 33 weeks, 5 days. ELAINA by current US: 01/19/2021. Estimated weight: 2097 grams, +/- 3:15 grams, 58 percentile. US/OB Limited With Biometrics IMPRESSION: Single live intrauterine gestation with a mean gestational age of 33 weeks and 2 days. The measurements obtained today fall within the normal expected range. Electronically Signed: Torito Jordan MD at 10:09 EDT , Service support , CC: Dr. Kourtney Ceron MD; Dr. Jacqueline Blanco DO Air Quality Consultant: Signed Jacqueline Blanco DO Work Phone: Start: 11-15-2020 End: 11-15-2020 Process Operator Office Visit Report Comments: See Note; NOTES: [facility] [address] [place], [place] [address]natalio. [address] [place] [address] OFFICE VISIT Date of Service: 11/15/20 MR#: [id number] Acct: [id number] Name: BRIT WALTER Rep #: [id number] : 1995 Provider: Dr. Kourtney snow MD Age/Sex: 25/F Location: [facility] Status: Signed Intake Vital Signs 11/15/20 08:29 11/15/20 08:29 Height 5 ft 7 in Weight: 160 lb 2 oz BMI 25.0 24.0 BP 108/82 H Intake Visit Reasons: 30WK OB Ping Pong Table Assembler Required: No Is patient in pain?: No Allergies gluten Adverse Reaction (Verified 11/15/20 08:29) Upset Stomach Medications multivitamin no.47-iron fum 27 mg-folate no.1 1 mg-dha 300 mg capsule cap PO 06/08/20 [History Confirmed 11/15/20] ondansetron 4 mg disintegrating tablet 4 mg PO Q6H PRN #30 tablet 09/17/20 [Rx Confirmed 11/15/20] Last Menstral Period: 04/21/20 Zika: Zika virus screening: Negative : No PFSH PFSH Medical History (Updated 11/15/20 @ 08:[address] 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 Date Name GA/Weeks Outcome Route Bth Weight Infant Gen Labor Lgth Anesthesia Del Locatn Provider FOB Unknown 02/06/2018- Trae 40 live - full term 8lbs 1oz Female 11 hour s epidural [facility] Dennis Casillas Delivery Date: 7 day post infection - fever ATB x10 days Evelina Rodriguez HPI 30WK OB Details: BRIT WALTER is a 25 year old who presents for routine OB visit. OB Visit ELAINA Calculator Estimated Delivery Date Method Current WG Current Estimate 01/28/21 Ultrasound #1 29w 3d Expected Delivery Route/Plan Labor Preferences- CB/BF classes: no labor support person: Rony labor intervention preferences: [] pain management options preferred: epidural cut cord/dad catch: cord : yes PP control planned: condoms discussed possible routes of delivery and associated risks: [] special requests: [] Specific Issue/Plans COVID status: positive during 1st trimester flu vaccine: no tdap vaccine: [] rhogam: na LARC form signed: yes Problem list reviewed and updated with the most current plan of care details and appropriate orders placed. Relevant counseling for the gestational age provided. Continue routine care and follow up unless otherwise noted in visit notes/problem list details Initial Weight: Not Recorded Date -???-???-???-???-???-???-??? -???-???-???-???-???- EGA Weight BP Urine Prot -???-???-???-???-???-???-??? -???-???-???-???-???- Glucose FHR FuHt Pres Dilation -???-???-???-???-???-???-??? -???-???-???-???-???- Effaced St Visit Note 06/30/20 -???-???-???-???-???-???-??? -???-???-???-???-???- 9w 5d 143 lb 2 oz 100/62 -???-???-???-???-???-???-??? -???-???-???-???-???- 175 -???-???-???-???-???-???-??? -???-???-???-???-???- GP - CRL 25m m consistent with LMP. GP - CRL 25mm consistent ELAINA of 01/28. LMP unknown. 07/28/20 -???-???-???-???-???-???-??? -???-???-???-???-???- 13w 5d 142 lb 2 oz 100/64 Negative -???-???-???-???-???-???-??? -???-???-???-???-???- Negative 150 -???-???-???-???-???-???-??? -???-???-???-???-???- GP - no cram ping or bleeding. Anatomy scan ordered. 08/25/20 -???-???-???-???-???-???-??? -???-???-???-???-???- 17w 5d 149 lb 4 oz 100/64 Negative -???-???-???-???-???-???-??? -???-???-???-???-???- Negative 135 -???-???-???-???-???-???-??? -???-???-???-???-???- GP - no cram ping or bleeding. PRR. Anatomy scan 09/06. Catium-kv-hil is throwing gender reveal green party. 09/27/20 -???-???-???-???-???-???-??? -???-???-???-???-???- 22w 3d 153 lb 4 oz 104/60 Trace -???-???-???-???-???-???-??? -???-???-???-???-???- Negative 142 -???-???-???-???-???-???-??? -???-???-???-???-???- -No DALI SINGH. 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 28 wk growth US hx of covid ordered. 10/25/20 -???-???-???-???-???-???-??? -???-???-???-???-???- 26w 3d 159 lb 100/58 Negative -???-???-???-???-???-???-??? -???-???-???-???-???- Negative 141 26 -???-???-???-???-???-???-??? -???-???-???-???-???- -No SAMANTHA. DALI Nieves. Growth US 17, Larc. 28 w lab wnl 05/24/21 -???-???-???-???-???-???-??? -???-???-???-???-???- 29w 3d 160 lb 2 oz 108/82 Negative -???-???-???-???-???-???-??? -???-???-???-???-???- Negative 130 29 -???-???-???-???-???-???-??? -???-???-???-???-???- GP - no LOF, VB, DFM, ctx. Decided on Ti for name. GP - no LOF, VB, DFM, ctx. Decided on Ti for name. Discussed medication for allergies ACOG First Trimester First Trimester: Desire for , Alcohol, Tobacco Cessation, Illicit/Recreational Drug/Substance Use, Intimate Partner Violence, Barriers to care, Unstable Housing, Communication Barriers, Environmental/Work Hazards, Anticipated Course of Care, Toxoplasmosis Precations, Use of Any medications, Sexual activity, Exercise, Dental Care, Sauna/Hot tub use, Seat Belt use, Childbirth classes/Hospital facilities, , Travel, Indications for Ultrasound and Screening for Aneuploidy Second Trimester Second Trimester: Signs and Symptoms of Labor, Selecting a care provider, Reproductive Life Planning Contreception, Depression/Anxiety and Intimate Partner Violence; Discussed Tobacco Cessation Third Trimester Third Trimester: Pain Management Plans, Labor support person(s), Immediate Larc, Circumcision preference, Signs and Symptoms of Preeclampsia, Infant Feeding Yes and Family Medical Leave or Disability Forms Diagnostics Diagnostics Diagnostics: Blood Type A POSITIVE Antibody Screen NEGATIVE Glucose 1 Hr 50 gm 87 mg/dL (70-140) HIV 1 2 Antibody Non-Reactive (Nonreactive) Rubella IgG Antibody Reactive (Nonreactive) Hgb 11.6 g/dL (12.0-15.0) L Hct 36.0 % (37-47) L RPR NONREACTIVE (NONREACTIVE) N.gonorrhoeae DNA (SWAPNA) Negative Details: HIV: Urine Culture: Sequential Screen: NIPT Screen: ROS GI Denies dyspepsia, Denies nausea and Denies vomiting Denies abnormal vaginal bleeding, Denies dysuria, Denies pelvic pain, Denies vaginal discharge, Denies vaginal odor and Denies vaginal pruritus Exam Const General: cooperative, healthy appearing, comfortable, no acute distress, well developed and well groomed Nutritional Appearance: average body habitus and well nourished Orientation: alert, awake and oriented x3 HENMT Head: normal to inspection, normocephalic and atraumatic Eyes Pupils: PERRL and accommodation normal Resp Effort Inspection: normal respiratory effort, able to speak in complete sentences and symmetric chest movement Cardio Rate: regular rate GI Palpation: soft, no guarding, no masses and nontender Skin General: no rashes or lesions noted, elasticity normal and turgor normal Neuro General: patient alert, patient awake and patient oriented x3 Cranial Nerves: CN's II-XI intact bilaterally, sense of smell intact, PERRL, accommodation normal and EOM intact bilaterally Speech: speech normal Gait: normal gait Psych Appearance: grossly normal and well kempt Mental Status: mental status grossly normal Mood: congruent mood Affect: normal affect Speech and Movement: speech and movement normal Attitude: cooperative Thought Process: normal Thought Content: normal Judgment: judgment good Results POC Urinalysis 2 Dip (Clinic) Office Urine Glucose Negative Last Edit by Karena Bernal on 11/15/20 08:38 Office Urine Protein Negative Last Edit by Karena Bernal on 11/15/20 08:38 Coding Level of Care Code OB Routine Diagnoses COVID-19 affecting , antepartum O98.519; U07.1 Abnormal Pap smear of cervix R87.619 Abnormal Pap type: unspecified Miscarriage within last 12 months Z87.59 Supervision of other normal Z34.80 Z3A.29 Weeks of gestation: 29 weeks Assessment and Plan Assessment and Plan (1) COVID-19 affecting , antepartum: Status: Acute Comment: Taking baby ASA, plan growth US starting at 28 weeks, 11/08 nl growth (2) Abnormal Pap smear of cervix: Status: Acute Qualifiers: Abnormal Pap type: unspecified Qualified Code(s): R87.619 - Unspecified abnormal cytological findings in specimens from cervix uteri Comment: colposcopy x2 (3) Miscarriage within last 12 months: Status: Acute (4) Supervision of other normal : Status: Acute Comment: PRR ELAINA 01/28/21 Boy! Ti PC: Trae Spouse: Rony (5) : Status: Acute Qualifiers: Weeks of gestation: 29 weeks Qualified Code(s): Z3A.29 - 29 weeks gestation of Comment: declines genetic and carrier. nl anatomy Plan Details Other Orders: Orders: POC Urinalysis 2 Dip (Clinic) Today 11/15/20 0850 <Electronically signed by Kourtney Ceron MD> Date Kourtney Ceron MD Cosigner Signature: Date (if applicable) CC: Jacqueline Blanco DO Work Phone: Start: 11-08-2020 End: 11-12-2020 OB Limited With Biometrics Comments: See Note; NOTES: [facility] Imaging Services [address] [place] [address] OB Limited With Biometrics MR#: [id number] Acct: [id number] Name: BRIT WALTER Rep #: [id number] : 1995 F 25 From: Marcelino Navarro MD PCP: Dr. Jacqueline Blanco, Status: REG CLI Study: OB Limited With Biometrics Date of Exam: 11/08 Exam# [id number] Ordering Dr: Vicenta Sandoval SITE SAFETY MANAGER SITE SAFETY MANAGER -C STUDY: SECOND AND THIRD TRIMESTER OBSTETRICAL ULTRASOUND REASON FOR EXAM: Female, 25 years old hx covid while -- growth LMP: Unknown. TECHNIQUE: Transabdominal TECHNICAL QUALITY: Adequate. PRIOR ULTRASOUND: None. FINDINGS: There is a single intrauterine fetus. The fetus is in a cephalic presentation. There is demonstrated cardiac activity with a heart rate of 136 bpm. There is a normal amniotic fluid volume. The largest amniotic fluid pocket measures 4.1 cm. The amniotic fluid index (JOVITA) is 12.2 cm. The placenta is fundal in location. There are Grade 0 placental changes. The cervix is closed and measures 3.4 in length. BIOMETRY: BPD: 7.64 cm: 30 weeks, 4 days HC: 28.23 cm: 30 weeks, 6 days AC: 24.52 cm: 28 weeks, 5 days FL: 5.25 cm: 27 weeks, 6 days age by current US: 29 weeks, 2 days. ELAINA by current US: 01/22/21. Estimated weight: 1294 grams, +/- 194 grams, 53 %. Age by LMP: 28 weeks, 3 days. ELAINA by LMP: 01/28/21. US/OB Limited With Biometrics IMPRESSION: Single live intrauterine gestation at approximately 29 weeks and 2 days based on the current ultrasound. Electronically Signed: Marcelino Navarro MD at 8:51 EDT Tel , Service support , CC: DAYTON Sandoval; Dr. Jacqueline Blanco DO Air Quality Consultant: Signed Jacqueline Blanco DO Work Phone: Start: 2020 End: 2020 Process Operator Office Visit Report Comments: See Note; NOTES: [facility] [address] [place] [address]. [address] [place] [address] OFFICE VISIT Date of Service: 10/25/20 MR#: [id number] Acct: [id number] Name: BRIT WALTER Rep #: [id number] : 1995 Provider: DAYTON campo Age/Sex: 25/F [place] [facility] Status: Signed Intake Vital Signs 10/25/20 08:25 10/25/20 08:27 Height 5 ft 7 in Weight: 159 lb BMI 24.9 24.0 BP 100/58 L Intake Visit Reasons: 27WK OB *needs to r/s 12/06 appt Ping Pong Table Assembler Required: No Accompanied by: Allergies gluten Adverse Reaction (Verified 10/25/20 08:26) Upset Stomach Medications multivitamin no.47-iron fum 27 mg-folate no.1 1 mg-dha 300 mg capsule cap PO 06/08/20 [History Confirmed 10/25/20] ondansetron 4 mg disintegrating tablet 4 mg PO Q6H PRN #30 tablet 09/17/20 [Rx Confirmed 10/25/20] Last Menstral Period: 04/21/20 Zika: Zika virus screening: Negative : No PFSH PFSH Medical History Anxiety Social History household members: family housing: house number of children: 1 Smoking Status: Never smoker alcohol intake: current details: social substance use type: does not use what type of physical activity do you participate in: none seatbelt use: always do you feel safe at home: Yes 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 Date Name GA/Weeks Outcome Route Bth Weight Infant Gen Labor Lgth Anesthesia Del [facility] Provider FOB Unknown 02/06/2018- [place] 40 live - full term 8lbs 1oz Female 11 hour s epidural [facility] Dennis Casillas Delivery Date: 7 day post infection - fever ATB x10 days Evelina Rodriguez HPI 27WK OB *needs to r/s 12/06 appt Details: BRIT WALTER is a 25 year old who presents for routine OB visit. OB Visit ELAINA Calculator Estimated Delivery Date Method Current WG Current Estimate 01/28/21 Ultrasound #1 26w 3d Expected Delivery Route/Plan Labor Preferences- CB/BF classes: no labor support person: Rony labor intervention preferences: [] pain management options preferred: epidural cut cord/dad catch: cord : yes PP control planned: condoms discussed possible routes of delivery and associated risks: [] special requests: [] Specific Issue/Plans flu vaccine: no tdap vaccine: [] rhogam: na LARC form signed: yes Problem list reviewed and updated with the most current plan of care details and appropriate orders placed. Relevant counseling for the gestational age provided. Continue routine care and follow up unless otherwise noted in visit notes/problem list details Initial Weight: Not Recorded Date -???-???-???-???-???-???-??? -???-???-???-???-???- EGA Weight BP Urine Prot -???-???-???-???-???-???-??? -???-???-???-???-???- Glucose FHR FuHt Pres Dilation -???-???-???-???-???-???-??? -???-???-???-???-???- Effaced St Visit Note 06/30/20 -???-???-???-???-???-???-??? -???-???-???-???-???- 9w 5d 143 lb 2 oz 100/62 -???-???-???-???-???-???-??? -???-???-???-???-???- 175 -???-???-???-???-???-???-??? -???-???-???-???-???- GP - CRL 25m m consistent with LMP. GP - CRL 25mm consistent ELAINA of 01/28. LMP unknown. 07/28/20 -???-???-???-???-???-???-??? -???-???-???-???-???- 13w 5d 142 lb 2 oz 100/64 Negative -???-???-???-???-???-???-??? -???-???-???-???-???- Negative 150 -???-???-???-???-???-???-??? -???-???-???-???-???- GP - no cram ping or bleeding. Anatomy scan ordered. 08/25/20 -???-???-???-???-???-???-??? -???-???-???-???-???- 17w 5d 149 lb 4 oz 100/64 Negative -???-???-???-???-???-???-??? -???-???-???-???-???- Negative 135 -???-???-???-???-???-???-??? -???-???-???-???-???- GP - no cram ping or bleeding. PRR. Anatomy scan 09/06. [id number]-vo-[id number] is throwing gender reveal green party. 09/27/20 -???-???-???-???-???-???-??? -???-???-???-???-???- 22w 3d 153 lb 4 oz 104/60 Trace -???-???-???-???-???-???-??? -???-???-???-???-???- Negative 142 -???-???-???-???-???-???-??? -???-???-???-???-???- -No VB, DALI Varghese FM. 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 28 wk growth US hx of covid ordered. 10/25/20 -???-???-???-???-???-???-??? -???-???-???-???-???- 26w 3d 159 lb 100/58 Negative -???-???-???-???-???-???-??? -???-???-???-???-???- Negative 141 26 -???-???-???-???-???-???-??? -???-???-???-???-???- MH-No VB. DALI Varghese Fm. Growth US 11/08, Larc. 28 w lab wnl ACOG First Trimester First Trimester: Desire for , Alcohol, Tobacco Cessation, Illicit/Recreational Drug/Substance Use, Intimate Partner Violence, Barriers to care, Unstable Housing, Communication Barriers, Environmental/Work Hazards, Anticipated Course of Care, Toxoplasmosis Precations, Use of Any medications, Sexual activity, Exercise, Dental Care, Sauna/Hot tub use, Seat Belt use, Childbirth classes/Hospital facilities, , Travel, Indications for Ultrasound and Screening for Aneuploidy Second Trimester Second Trimester: Signs and Symptoms of Labor, Selecting a care provider, Reproductive Life Planning Contreception, Depression/Anxiety and Intimate Partner Violence; Discussed Tobacco Cessation Third Trimester Third Trimester: Pain Management Plans, Labor support person(s), Immediate Larc, Circumcision preference Yes Yes, Signs and Symptoms of Preeclampsia, Infant Feeding Yes and Family Medical Leave or Disability Forms Diagnostics Diagnostics Diagnostics: Blood Type A POSITIVE Antibody Screen NEGATIVE Glucose 1 Hr 50 gm 87 mg/dL (70-140) HIV 1 2 Antibody Non-Reactive (Nonreactive) Rubella IgG Antibody Reactive (Nonreactive) Hgb 11.6 g/dL (12.0-15.0) L Hct 36.0 % (37-47) L RPR NONREACTIVE (NONREACTIVE) N.gonorrhoeae DNA (SWAPNA) Negative Details: HIV: Urine Culture: Sequential Screen: NIPT Screen: Results POC Urinalysis 2 Dip (Clinic) Office Urine Glucose Negative Last Edit by Carly Shaw on 10/25/20 08:29 Office Urine Protein Negative Last Edit by Carly Shaw on 10/25/20 08:29 Coding Level of Care Code OB Routine Diagnoses Supervision of other normal Z34.80 Z3A.22 Weeks of gestation: 22 weeks COVID-19 affecting , antepartum O98.519; U07.1 Assessment and Plan Assessment and Plan (1) Supervision of other normal : Status: Acute Comment: PRR ELAINA 01/28/21 PC: [place] Spouse: Rony (2) : Status: Acute Qualifiers: Weeks of gestation: 22 weeks Qualified Code(s): Z3A.22 - 22 weeks gestation of Comment: declines genetic and carrier. nl anatomy (3) COVID-19 affecting , antepartum: Status: Acute Comment: Taking baby ASA, plan growth US starting at 28 weeks Plan - Vicenta Sandoval SITE SAFETY MANAGER, SITE SAFETY MANAGER-C: problem list reviewed and updated for most current plan of care and appropriate orders placed. Relevant counseling for the gestational age appropriate provided and ACOG education checklist updated. Continue routine care and follow up. 10/25/20840 <Electronically signed by Vicenta Sandoval NP SITE SAFETY MANAGER-C> Date Vicenta Sandoval NP SITE SAFETY MANAGER-C Cosigner Signature: Date (if applicable) CC: Jacqueline Blanco DO Work Phone: Start: 09-27-2020 End: 09-27-2020 Process Operator Office Visit Report Comments: See Note; NOTES: [facility] [address] [place] [address] OFFICE VISIT Date of Service: 09/27/20 MR#: [id number] Acct: [id number] Name: BRIT WALTER Rep #: [id number] : 1995 Provider: DAYTON campo Age/Sex: 24/F [place] [facility] Status: Signed Intake Vital Signs 09/27/20 Height 5 ft 7 in 09/27/20 Weight: 153 lb 4 oz 09/27/20 BMI 24.0 09/27/20 BP 104/60 Intake Visit Reasons: 23 WK OB * 12/20 APPT NEEDS R/S Ping Pong Table Assembler Required: No Accompanied by: self Allergies gluten Adverse Reaction (Verified 09/27/20 08:23) Upset Stomach Medications multivitamin no.47-iron fum 27 mg-folate no.1 1 mg-dha 300 mg capsule cap PO 06/08/20 [History Confirmed 09/27/20] ondansetron 4 mg disintegrating tablet 4 mg PO Q6H PRN #30 tablet 09/17/20 [Rx Confirmed 09/27/20] Last Menstral Period: 04/21/20 Zika: Zika virus screening: Negative : No PFSH PFSH Medical History Anxiety (Acute) Social History (Updated 09/27/20 @ 08:35 by Vicenta Sandoval NP, BAUTISTAC) household members: family housing: house number of children: 1 Smoking Status: Never smoker alcohol intake: current details: social substance use type: does not use what type of physical activity do you participate in: none seatbelt use: always do you feel safe at home: Yes 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 Date Name GA/Weeks Outcome Route Bth Weight Infant Gen Labor Lgth Anesthesia Del Locatn Provider FOB Unknown 02/06/2018- [place] 40 live - full term 8lbs 1oz Female 11 hour s epidural [facility] Dennis Casillas Delivery Date: 7 day post infection - fever ATB x10 days Evelina Rodriguez HPI 23 WK OB * 12/20 APPT NEEDS R/S: Details: BRIT WALTER is a 24 year old who presents for routine OB visit. OB Visit ELAINA Calculator Estimated Delivery Date Method Current WG Current Estimate 01/28/21 Ultrasound #1 22w 3d Expected Delivery Route/Plan Labor Preferences- CB/BF classes: [] labor support person: [] labor intervention preferences: [] pain management options preferred: [] cut cord/dad catch: [] : [] PP control planned: [] discussed possible routes of delivery and associated risks: [] special requests: [] Specific Issue/Plans flu vaccine: [] tdap vaccine: [] rhogam: [] LARC form signed: [] Problem list reviewed and updated with the most current plan of care details and appropriate orders placed. Relevant counseling for the gestational age provided. Continue routine care and follow up unless otherwise noted in visit notes/problem list details Initial Weight: Not Recorded Date -???-???-???-???-???-???-??? -???-???-???-???-???- EGA Weight BP Urine Prot -???-???-???-???-???-???-??? -???-???-???-???-???- Glucose FHR FuHt Pres Dilation -???-???-???-???-???-???-??? -???-???-???-???-???- Effaced St Visit Note 06/30/20 -???-???-???-???-???-???-??? -???-???-???-???-???- 9w 5d 143 lb 2 oz 100/62 -???-???-???-???-???-???-??? -???-???-???-???-???- 175 -???-???-???-???-???-???-??? -???-???-???-???-???- GP - CRL 25m m consistent with LMP. GP - CRL 25mm consistent ELAINA of 01/28. LMP unknown. 07/28/20 -???-???-???-???-???-???-??? -???-???-???-???-???- 13w 5d 142 lb 2 oz 100/64 Negative -???-???-???-???-???-???-??? -???-???-???-???-???- Negative 150 -???-???-???-???-???-???-??? -???-???-???-???-???- GP - no cram ping or bleeding. Anatomy scan ordered. 08/25/20 -???-???-???-???-???-???-??? -???-???-???-???-???- 17w 5d 149 lb 4 oz 100/64 Negative -???-???-???-???-???-???-??? -???-???-???-???-???- Negative 135 -???-???-???-???-???-???-??? -???-???-???-???-???- GP - no cram ping or bleeding. PRR. Anatomy scan 09/06. Bcuuov-ey-gqy is throwing gender reveal green party. 09/27/20 -???-???-???-???-???-???-??? -???-???-???-???-???- 22w 3d 153 lb 4 oz 104/60 Trace -???-???-???-???-???-???-??? -???-???-???-???-???- Negative 142 -???-???-???-???-???-???-??? -???-???-???-???-???- MH-No DALI SINGH. 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 28 wk growth US hx of covid ordered. ACOG First Trimester First Trimester: Desire for , Alcohol, Tobacco Cessation, Illicit/Recreational Drug/Substance Use, Intimate Partner Violence, Barriers to care, Unstable Housing, Communication Barriers, Environmental/Work Hazards, Anticipated Course of Care, Toxoplasmosis Precations, Use of Any medications, Sexual activity, Exercise, Dental Care, Sauna/Hot tub use, Seat Belt use, Childbirth classes/Hospital facilities, , Travel, Indications for US and Screening for Aneuploidy Diagnostics Diagnostics Diagnostics Blood Type A POSITIVE 06/30/20 Antibody Screen NEGATIVE 06/30/20 HIV 1 2 Antibody Non-Reactive (Nonreactive) 06/30/20 Rubella IgG Antibody Reactive (Nonreactive) 06/30/20 Hgb 12.6 g/dL (12.0-15.0) 06/30/20 Hct 38.2 % (37-47) 06/30/20 RPR NONREACTIVE (NONREACTIVE) 06/30/20 N.gonorrhoeae DNA (SWAPNA) Negative 06/30/20 Details: HIV: Urine Culture: Sequential Screen: NIPT Screen: Results POC Urinalysis 2 Dip (Clinic) Office Urine Glucose Negative Last Edit by Carly Shaw on 09/27/20 08:26 Office Urine Protein Trace Last Edit by Carly Shaw on 09/27/20 08:26 Assessment Plan Problems 1. Supervision of Other Normal Z34.80 PRR ELAINA 01/28/21 PC: [place] Spouse: Rony 2. 22 weeks gestation of Z3A.22 declines genetic and carrier. nl anatomy 3. COVID-19 affecting , antepartum O98.519; U07.1 Taking baby ASA, plan growth US starting at 28 weeks Plan problem list reviewed and updated for most current plan of care and appropriate orders placed. Relevant counseling for the gestational age appropriate provided and ACOG education checklist updated. Continue routine care and follow up. Orders Orders: POC Urinalysis 2 Dip (Clinic) Today Coding Level of Care Code OB Routine Diagnoses Supervision of Other Normal Z34.80 22 weeks gestation of Z3A.22 ?Weeks of gestation: 22 weeks COVID-19 affecting , antepartum O98.519; U07.1 09/27/20 0835 <Electronically signed by Vicenta Sandoval NP SITE SAFETY MANAGER-C> Date Vicenta Sandoval NP SITE SAFETY MANAGER-C Cosigner Signature: Date (if applicable) CC: Jacqueline Blanco DO Work Phone: Start: 08-25-2020 End: 08-25-2020 Process Operator Office Visit Report Comments: See Note; NOTES: [facility] [address] [place] [address] OFFICE VISIT Date of Service: 08/25/20 MR#: [id number] Acct: [id number] Name: BRIT WALTER Rep #: [id number] : 1995 Provider: Dr. Kourtney snow MD Age/Sex: 24/F Location: [facility] Status: Signed Intake Vital Signs 08/25/20 Height 5 ft 7 in 08/25/20 Weight: 149 lb 4 oz 08/25/20 BMI 23.3 08/25/20 BP 100/64 Intake Visit Reasons: 18 WK OB Ping Pong Table Assembler Required: No Is patient in pain?: No Allergies gluten Adverse Reaction (Verified 08/25/20 16:06) Upset Stomach Medications multivitamin no.47-iron fum 27 mg-folate no.1 1 mg-dha 300 mg capsule cap PO 06/08/20 [History Confirmed 08/25/20] Last Menstral Period: 04/21/20 Zika: Zika virus screening: Negative : No PFSH PFSH Medical History Anxiety (Acute) Social History (Updated 08/25/20 @ 16:[address] 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 Date Name GA/Weeks Outcome Route Bth Weight Gen Labor Lgth Anesthesia Del Locatn Provider FOB Unknown 02/06/2018- [place] 40 live - full term 8lbs 1oz Female 11 hour s epidural [facility] Dennis Casillas Delivery Date: 7 day post infection - fever ATB x10 days Evelina Rodriguez HPI 18 WK OB: Details: BRIT WALTER is a 24 year old who presents for routine OB visit. OB Visit ELAINA Calculator Estimated Delivery Date Method Current WG Current Estimate 01/28/21 Ultrasound #1 17w 5d Expected Delivery Route/Plan Labor Preferences- CB/BF classes: [] labor support person: [] labor intervention preferences: [] pain management options preferred: [] cut cord/dad catch: [] : [] PP control planned: [] discussed possible routes of delivery and associated risks: [] special requests: [] Specific Issue/Plans flu vaccine: [] tdap vaccine: [] rhogam: [] LARC form signed: [] Problem list reviewed and updated with the most current plan of care details and appropriate orders placed. Relevant counseling for the gestational age provided. Continue routine care and follow up unless otherwise noted in visit notes/problem list details Initial Weight: Not Recorded Date -???-???-???-???-???-???-??? -???-???-???-???-???- EGA Weight BP Urine Prot -???-???-???-???-???-???-??? -???-???-???-???-???- Glucose FHR FuHt Pres Dilation -???-???-???-???-???-???-??? -???-???-???-???-???- Effaced St Visit Note 06/30/20 -???-???-???-???-???-???-??? -???-???-???-???-???- 9w 5d 143 lb 2 oz 100/62 -???-???-???-???-???-???-??? -???-???-???-???-???- 175 -???-???-???-???-???-???-??? -???-???-???-???-???- GP - CRL 25m m consistent with LMP. GP - CRL 25mm consistent ELAINA of 01/28. LMP unknown. 07/28/20 -???-???-???-???-???-???-??? -???-???-???-???-???- 13w 5d 142 lb 2 oz 100/64 Negative -???-???-???-???-???-???-??? -???-???-???-???-???- Negative 150 -???-???-???-???-???-???-??? -???-???-???-???-???- GP - no cram ping or bleeding. Anatomy scan ordered. 08/25/20 -???-???-???-???-???-???-??? -???-???-???-???-???- 17w 5d 149 lb 4 oz 100/64 Negative -???-???-???-???-???-???-??? -???-???-???-???-???- Negative 135 -???-???-???-???-???-???-??? -???-???-???-???-???- GP - no cram ping or bleeding. PRR. Anatomy scan 09/06. Jitkfo-mw-lnh is throwing gender reveal green party. ACOG First Trimester First Trimester: Desire for , Alcohol, Tobacco Cessation, Illicit/Recreational Drug/Substance Use, Intimate Partner Violence, Barriers to care, Unstable Housing, Communication Barriers, Environmental/Work Hazards, Anticipated Course of Care, Toxoplasmosis Precations, Use of Any medications, Sexual activity, Exercise, Dental Care, Sauna/Hot tub use, Seat Belt use, Childbirth classes/Hospital facilities, , Travel, Indications for US and Screening for Aneuploidy Diagnostics Diagnostics Diagnostics Blood Type A POSITIVE 06/30/20 Antibody Screen NEGATIVE 06/30/20 HIV 1 2 Antibody Non-Reactive (Nonreactive) 06/30/20 Rubella IgG Antibody Reactive (Nonreactive) 06/30/20 Hgb 12.6 g/dL (12.0-15.0) 06/30/20 Hct 38.2 % (37-47) 06/30/20 RPR NONREACTIVE (NONREACTIVE) 06/30/20 N.gonorrhoeae DNA (SWAPNA) Negative 06/30/20 Details: HIV: Urine Culture: Sequential Screen: NIPT Screen: ROS GI Denies heartburn, Denies nausea, Denies vomiting Denies abnormal vaginal bleeding, Denies painful urination, Denies pelvic pain, Denies vaginal discharge, Denies vaginal odor, Denies vaginal itching Exam Const General: cooperative, healthy appearing, comfortable, no acute distress, well developed, well groomed Nutritional Appearance: average body habitus, well nourished Orientation: alert, awake, oriented x3 HENMT Head: normal to inspection, normocephalic, atraumatic Eyes Pupils: PERRL, accommodation normal Resp Effort Inspection: normal respiratory effort, able to speak in complete sentences, symmetric chest movement Cardio Rate: regular rate GI Palpation: soft, no guarding, no masses, nontender Skin General: no rashes or lesions noted, elasticity normal, turgor normal Neuro General: alert, awake, oriented x3 Cranial Nerves: CN's II-XI intact bilaterally, sense of smell intact, PERRL, accommodation normal, EOM intact bilaterally Speech: speech normal Gait: normal gait Psych Appearance: grossly normal, well kempt Mental Status: mental status grossly normal Mood: congruent mood Affect: normal affect Speech and Movement: speech and movement normal Attitude: cooperative Thought Process: normal Thought Content: normal Judgment: judgment good Results POC Urinalysis 2 Dip (Clinic) Office Urine Glucose Negative Last Edit by Karena Bernal on 08/25/20 16:22 Office Urine Protein Negative Last Edit by Karena Bernal on 08/25/20 16:22 Assessment Plan Problems 1. COVID-19 affecting , antepartum O98.519; U07.1 Taking baby ASA, plan growth US starting at 28 weeks 2. Abnormal cervical Papanicolaou smear, unspecified abnormal pap finding R87.619 colposcopy x2 3. Miscarriage within last 12 months Z87.59 4. Supervision of other normal Z34.80 ELAINA 01/28/21 PC: [place] Spouse: Rony 5. 17 weeks gestation of Z3A.17 declines genetic and carrier Orders Orders: POC Urinalysis 2 Dip (Clinic) Today Coding Level of Care Code OB Routine Diagnoses COVID-19 affecting , antepartum O98.519; U07.1 Abnormal cervical Papanicolaou smear, unspecified abnormal pap finding R87.619 ?Abnormal Pap type: unspecified Miscarriage within last 12 months Z87.59 Supervision of other normal Z34.80 17 weeks gestation of Z3A.17 ?Weeks of gestation: 17 weeks 08/25/20 1639 <Electronically signed by Kourtney Ceron MD> Date Kourtney Ceron MD Cosigner Signature: Date (if applicable) CC: Jacqueline Blanco DO Work Phone: Start: 07-28-2020 End: 07-28-2020 Process Operator Office Visit Report Comments: See Note; NOTES: [facility] [address] [place] [address] OFFICE VISIT Date of Service: 07/28/20 MR#: [id number] Acct: [id number] Name: BRIT WALTER Rep #: [id number] : 1995 Provider: Dr. Kourtney snow MD Age/Sex: 24/F Location: [facility] Status: Signed Intake Vital Signs 07/28/20 Height 5 ft 7 in 07/28/20 Weight: 142 lb 2 oz 07/28/20 BMI 22.2 07/28/20 BP 100/64 Intake Visit Reasons: 14 WK OB Ping Pong Table Assembler Required: No Is patient in pain?: No Allergies gluten Adverse Reaction (Verified 07/28/20 08:03) Upset Stomach Medications multivitamin no.47-iron fum 27 mg-folate no.1 1 mg-dha 300 mg capsule cap PO 06/08/20 [History Confirmed 07/28/20] Last Menstral Period: 04/21/20 Zika: Zika virus screening: Negative : No PFSH PFSH Medical History Anxiety (Acute) Social History (Updated 07/28/20 @ 08:[address] 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 Date Name GA/Weeks Outcome Route Bth Weight Infant Gen Labor Lgth Anesthesia Del Locatn Provider FOB Unknown 02/06/2018- [place] 40 live - full term 8lbs 1oz Female 11 hour s epidural [facility] Dennis Casillas Delivery Date: 7 day post infection - fever ATB x10 days Evelina Rodriguez HPI 14 WK OB: Details: BRIT WALTER is a 24 year old who presents for routine OB visit. OB Visit ELAINA Calculator Estimated Delivery Date Method Current WG Current Estimate 01/28/21 Ultrasound #1 13w 5d Expected Delivery Route/Plan Labor Preferences- CB/BF classes: [] labor support person: [] labor intervention preferences: [] pain management options preferred: [] cut cord/dad catch: [] : [] PP control planned: [] discussed possible routes of delivery and associated risks: [] special requests: [] Specific Issue/Plans flu vaccine: [] tdap vaccine: [] rhogam: [] LARC form signed: [] Problem list reviewed and updated with the most current plan of care details and appropriate orders placed. Relevant counseling for the gestational age provided. Continue routine care and follow up unless otherwise noted in visit notes/problem list details Initial Weight: Not Recorded Date -???-???-???-???-???-???-??? -???-???-???-???-???- EGA Weight BP Urine Prot -???-???-???-???-???-???-??? -???-???-???-???-???- Glucose FHR FuHt Pres Dilation -???-???-???-???-???-???-??? -???-???-???-???-???- Effaced St Visit Note 06/30/20 -???-???-???-???-???-???-??? -???-???-???-???-???- 9w 5d 143 lb 2 oz 100/62 -???-???-???-???-???-???-??? -???-???-???-???-???- 175 -???-???-???-???-???-???-??? -???-???-???-???-???- GP - CRL 25m m consistent with LMP. GP - CRL 25mm consistent ELAINA of 01/28. LMP unknown. 07/28/20 -???-???-???-???-???-???-??? -???-???-???-???-???- 13w 5d 142 lb 2 oz 100/64 Negative -???-???-???-???-???-???-??? -???-???-???-???-???- Negative 150 -???-???-???-???-???-???-??? -???-???-???-???-???- GP - no cram ping or bleeding. Anatomy scan ordered. ACOG First Trimester First Trimester: Desire for , Alcohol, Tobacco Cessation, Illicit/Recreational Drug/Substance Use, Intimate Partner Violence, Barriers to care, Unstable Housing, Communication Barriers, Environmental/Work Hazards, Anticipated Course of Care, Toxoplasmosis Precations, Use of Any medications, Sexual activity, Exercise, Dental Care, Sauna/Hot tub use, Seat Belt use, Childbirth classes/Hospital facilities, , Travel, Indications for US and Screening for Aneuploidy Diagnostics Diagnostics Diagnostics Blood Type A POSITIVE 06/30/20 Antibody Screen NEGATIVE 06/30/20 HIV 1 2 Antibody Non-Reactive (Nonreactive) 06/30/20 Rubella IgG Antibody Reactive (Nonreactive) 06/30/20 Hgb 12.6 g/dL (12.0-15.0) 06/30/20 Hct 38.2 % (37-47) 06/30/20 RPR NONREACTIVE (NONREACTIVE) 06/30/20 N.gonorrhoeae DNA (SWAPNA) Negative 06/30/20 Details: HIV: Urine Culture: Sequential Screen: NIPT Screen: ROS GI Denies heartburn, Denies nausea, Denies vomiting Denies abnormal vaginal bleeding, Denies painful urination, Denies pelvic pain, Denies vaginal discharge, Denies vaginal odor, Denies vaginal itching Exam Const General: cooperative, healthy appearing, comfortable, no acute distress, well developed, well groomed Nutritional Appearance: average body habitus, well nourished Orientation: alert, awake, oriented x3 HENMT Head: normal to inspection, normocephalic, atraumatic Eyes Pupils: PERRL, accommodation normal Resp Effort Inspection: normal respiratory effort, able to speak in complete sentences, symmetric chest movement Cardio Rate: regular rate GI Palpation: soft, no guarding, no masses, nontender Skin General: no rashes or lesions noted, elasticity normal, turgor normal Neuro General: alert, awake, oriented x3 Cranial Nerves: CN's II-XI intact bilaterally, sense of smell intact, PERRL, accommodation normal, EOM intact bilaterally Speech: speech normal Gait: normal gait Psych Appearance: grossly normal, well kempt Mental Status: mental status grossly normal Mood: congruent mood Affect: normal affect Speech and Movement: speech and movement normal Attitude: cooperative Thought Process: normal Thought Content: normal Judgment: judgment good Results POC Urinalysis 2 Dip (Clinic) Office Urine Glucose Negative Last Edit by Karena Bernal on 07/28/20 08:10 Office Urine Protein Negative Last Edit by Karena Bernal on 07/28/20 08:10 Assessment Plan Problems 1. COVID-19 affecting , antepartum O98.519; U07.1 Taking baby ASA, plan growth US starting at 28 weeks 2. Abnormal Pap smear of cervix R87.619 colposcopy x2 3. Miscarriage within last 12 months Z87.59 4. Supervision of other normal Z34.80 ELAINA? PC: Trae Spouse: Rony 5. 13 weeks gestation of Z3A.13 declines genetic and carrier Orders Orders: POC Urinalysis 2 Dip (Clinic) Today Coding Level of Care Code OB Routine Diagnoses COVID-19 affecting , antepartum O98.519; U07.1 Abnormal Pap smear of cervix R87.619 Miscarriage within last 12 months Z87.59 Supervision of other normal Z34.80 13 weeks gestation of Z3A.13 ?Weeks of gestation: 13 weeks 07/28/20 0831 <Electronically signed by Kourtney Ceron MD> Date Kourtney Ceron MD Cosigner Signature: Date (if applicable) CC: Jacqueline Blanco DO Work Phone: Start: 06-30-2020 End: 07-01-2020 Process Operator Office Visit Report Comments: See Note; NOTES: [facility] [address] [place] [address] OFFICE VISIT Date of Service: 06/30/20 MR#: [id number] Acct: [id number] Name: BRIT WALTER Rep #: [id number] : 1995 Provider: Dr. Kourtney snow MD Age/Sex: 24/F Location: [facility] [place] Status: Signed Intake Vital Signs 06/30/20 Height 5 ft 7 in 06/30/20 Weight: 143 lb 2 oz 06/30/20 BP 100/62 Intake Visit Reasons: NOB 7WKS Ping Pong Table Assembler Required: No Is patient in pain?: No Allergies gluten Adverse Reaction (Verified 06/30/20 13:36) Upset Stomach Medications multivitamin no.47-iron fum 27 mg-folate no.1 1 mg-dha 300 mg capsule cap PO 06/08/20 [History Confirmed 06/30/20] Last Menstral Period: 04/21/20 Zika: Zika virus screening: Negative : No PFSH PFSH Medical History Anxiety (Acute) Social History (Updated 06/30/20 @ 14:[address] 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 Date Name GA/Weeks Outcome Route Bth Weight Infant Gen Labor Lgth Anesthesia Del Locatn Provider FOB Unknown 02/06/2018- Trae 40 live - full term 8lbs 1oz Female 11 hour s epidural [facility] Delivery Date: 7 day post infection - fever ATB x10 days Evelina Rodriguez HPI NOB 7WKS : Details: BRIT WALTER is a 24 year old who presents for New OB visit. OB Visit ELAINA Calculator Estimated Delivery Date Method Current WG Current Estimate 01/28/21 Ultrasound #1 9w 5d Expected Delivery Route/Plan Labor Preferences- CB/BF classes: [] labor support person: [] labor intervention preferences: [] pain management options preferred: [] cut cord/dad catch: [] : [] PP control planned: [] discussed possible routes of delivery and associated risks: [] special requests: [] Specific Issue/Plans flu vaccine: [] tdap vaccine: [] rhogam: [] LARC form signed: [] Problem list reviewed and updated with the most current plan of care details and appropriate orders placed. Relevant counseling for the gestational age provided. Continue routine care and follow up unless otherwise noted in visit notes/problem list details Initial Weight: Not Recorded Date -???-???-???-???-???-???-??? -???-???-???-???-???- EGA Weight BP Urine Prot -???-???-???-???-???-???-??? -???-???-???-???-???- Glucose FHR FuHt Pres Dilation -???-???-???-???-???-???-??? -???-???-???-???-???- Effaced St Visit Note 06/30/20 -???-???-???-???-???-???-??? -???-???-???-???-???- 9w 5d 143 lb 2 oz 100/62 -???-???-???-???-???-???-??? -???-???-???-???-???- 175 -???-???-???-???-???-???-??? -???-???-???-???-???- GP - CRL 25m m consistent with LMP. GP - CRL 25mm consistent ELAINA of 01/28. LMP unknown. Menstrual History Last Menstral Period: 04/21/20 Reported LMP: unknown Antepartum Record Genetic Screening: Congenital Heart Defect: Other, Neural Tube Defect: Other, Hemoglobinopathy Or Carrier: Other, Cystic Fibrosis: Other, Chromosome Abnormality: Other, Jas-Sachs: Other, Hemophilia: Other, Intellectual Disability/Autism: Other, Recurrent Loss/Stillbirth: Other, Other Structural Defect: Other, Other Genetic Disease: Other, Maternal Metabolic Disorder: Other Infection History: Live with someone with TB or Exposed to TB: No, Patient or Partner has history of Genital Herpes: No, Rash or Viral illness since last mentrual period: No, Prior GBS-Infected child: No, History of STD: No, HIV Infection: No, History of Hepatitis: No, Recent travel outside of [place]: No, Concern for Hep exposure: No, Varicella immune: Yes Medical History Medical History: Positive: History of abnormal pap (h/o colposcopy), Negative: Diabetes, Hypertension, Heart disease, Auto-immune disorder, Kidney disease/UTI, Neurologic/epilepsy, Psychiatric, Depression/ depression, Hepatitis/liver disease, Varicosities/phlebitis, Thyroid dysfunction, Trauma/domestic violence, History of blood transfusions, D (Rh) Sensitized, Pulmonary (e.g.,TB,Asthma), Seasonal allergies, Drug/latex allergies/reactions, Breast, Mortgage Analyst surgery, Operations/hospitalizations, Anesthetic complications, Uterine anomaly/wilfred, Infertility, Anti- retroviral treatment, Relevant family history, Other ACOG First Trimester First Trimester: Desire for , Alcohol, Tobacco Cessation, Illicit/Recreational Drug/Substance Use, Intimate Partner Violence, Barriers to care, Unstable Housing, Communication Barriers, Environmental/Work Hazards, Anticipated Course of Care, Nurtrition and weight gain, Toxoplasmosis Precations, Use of Any medications, Sexual activity, Exercise, Dental Care, Sauna/Hot tub use, Seat Belt use, Childbirth classes/Hospital facilities, , Travel, Indications for US and Screening for Aneuploidy ROS Const Reports fatigue, Denies fever(s), Reports increased appetite, Reports weight gain Card Denies chest pain, Denies shortness of breath Resp Denies shortness of breath GI Denies constipation, Reports heartburn, Reports nausea, Reports vomiting Denies abnormal vaginal bleeding, Denies painful urination, Denies nipple discharge, Denies pelvic pain, Denies vaginal discharge, Denies vaginal odor, Denies vaginal itching Skin/Breast Reports breast pain, Reports breast swelling, Denies nipple discharge Psych Denies anxiety, Denies depression Endo Reports fatigue Exam Const General: cooperative, healthy appearing, comfortable, no acute distress, well developed, well groomed Nutritional Appearance: average body habitus, well nourished Orientation: alert, awake, oriented x3 HENMT Head: normal to inspection, not normocephalic, signs of trauma Eyes Pupils: PERRL, accommodation normal EOM: EOM intact bilaterally Resp Effort Inspection: normal respiratory effort, able to speak in complete sentences, symmetric chest movement Cardio Rate: regular rate GI Palpation: soft, no guarding, no masses, nontender Skin General: no rashes or lesions noted, elasticity normal, turgor normal Neuro General: alert, awake, oriented x3 Cranial Nerves: CN's II-XI intact bilaterally, sense of smell intact, PERRL, accommodation normal, EOM intact bilaterally Speech: speech normal Gait: normal gait Psych Appearance: grossly normal, well kempt Mental Status: mental status grossly normal Affect: normal affect Speech and Movement: speech and movement normal Attitude: cooperative Thought Process: normal Thought Content: normal Judgment: judgment good Assessment Plan Problems 1. 9 weeks gestation of Z3A.09 declines genetic and carrier 2. Supervision of other normal Z34.80 ELAINA? PC: Trae Spouse: Rony 3. Miscarriage within last 12 months Z87.59 4. Abnormal Pap smear of cervix R87.619 colposcopy x2 5. COVID-19 affecting , antepartum O98.519; U07.1 Taking baby ASA, plan growth US starting at 28 weeks Plan Patient oriented to practice and discussed care expectations and screenings. ACOG book offered to patient. Discussed routine labs and specific labs as needed:patient consents to testing. Optional screening reviewed with patient include:carrier screen, NIPT, neural tube defect screen, sequential screen and alpha-fetalprotein(AFP). Patient declines. RTO 4 weeks Coding Level of Care Code OB Routine Diagnoses 9 weeks gestation of Z3A.09 ?Weeks of gestation: 9 weeks Supervision of other normal Z34.80 Miscarriage within last 12 months Z87.59 Abnormal Pap smear of cervix R87.619 COVID-19 affecting , antepartum O98.519; U07.1 06/30/20 1427 <Electronically signed by Kourtney Ceron MD> Date Kourtney Ceron MD Cosigner Signature: Date (if applicable) CC: Jacqueline Blanco DO Work Phone: Start: 03-26-2020 End: 03-26-2020 Process Operator Office Visit Report Comments: See Note; NOTES: [facility] [address] [place] [address] [address] [place] [address] OFFICE VISIT Date of Service: 03/26/20 MR#: [id number] Acct: [id number] Name: BRIT EUGENE Rep #: [id number] : 1995 Provider: Dr. Zayra hinton MD Age/Sex: 24/F [place] [facility] Status: Signed Intake Vital Signs 03/26/20 Height 5 ft 7 in 03/26/20 Weight: 142 lb 03/26/20 BP 92/64 03/26/20 BMI 22.3 03/18/20 BMI 22.3 Intake Visit Reasons: SAB F/U Chief Complaint: follow up sab Ping Pong Table Assembler Required: No Is patient in pain?: No Allergies gluten Adverse Reaction (Verified 03/26/20 13:04) Upset Stomach Is last menstrual period known: No Post menopausal: No Patient : No : No PFSH Medical History Anxiety (Acute) Social History (Updated 03/26/20 @ 16:[address] 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 she took the dose of cytotec and had heavy bleeding with it. she feels like she passed eveyrhting, and she is still feelign bloated and achy but no fevers. Pregancy History 2 Elective abortions Hx Para 1 Spontaneous abortions Hx # Term Pregnancies Ectopic pregnancies Hx # Pregnancies Multiple births # of living children ROS Const Constitutional: Denies fatigue, fever(s), headache(s), increased appetite, poor appetite, weight gain or weight loss : Reports as per HPI; denies difficulty urinating, painful urination, urinary frequency, urinary incontinence, urinary hesitancy, urinary urgency, vaginal discharge, vaginal dryness, vaginal odor or vaginal itching Exam Const General: cooperative, healthy appearing, comfortable, no acute distress, well developed Nutritional Appearance: average body habitus Orientation: alert General: bladder normal to palpation External Female Exam: normal external appearance, normal appearance of the urethra Urethra: normal appearance of the urethra, normal palpation Speculum Exam - Vagina: normal appearance of the vagina, vaginal bleeding Speculum Exam - Cervix: normal appearance of the cervix, nontender Bimanual Exam- Vagina Uterus: normal bimanual exam, uterine size normal, bladder normal to palpation, uterine shape normal, No cervical tenderness, uterine mobility normal, uterine consistency normal, normal cervical palpation, uterus non-tender Bimanual Exam- Adnexa, other: normal adnexae, adnexae mobile, no adnexal masses, pelvic support normal Pelvic Support: normal OB/External Speculum: vaginal bleeding Speculum Exam: vaginal bleeding Assessment Plan Problems 1. Complete O03.9 Status post Cytotec. Recommend repeat hCG urine in 2 weeks if still positive recommend checking serum. Plan Problem list updated and treatment plans were reviewed with the patient and relevant educational handouts given. See problem list details for specific plan information. Coding Level of Care Code Off vis,est,level 3 Diagnoses Complete O03.9 03/26/20 2483 <Electronically signed by Zayra Marquez MD> Date Zayra Marquez MD [facility] Signature: Date (if applicable) CC: Jacqueline Blanco DO Work Phone: Start: 03-18-2020 End: 03-18-2020 Process Operator Office Visit Report Comments: See Note; NOTES: [facility] [address] [place] [address]. [address] [place] [address] OFFICE VISIT Date of Service: 03/18/20 MR#: [id number] Acct: [id number] Name: BRIT EUGENE Rep #: [id number] : 1995 Provider: Dr. Kourtney snow MD Age/Sex: 24/F Location: [facility] [place] Status: Signed Intake Vital Signs 03/18/20 Height 5 ft 7 in 03/18/20 Weight: 142 lb 8 oz 03/18/20 BP 98/56 L 03/18/20 BMI 21.1 Intake Visit Reasons: follow up SAB, u/s first Allergies gluten Adverse Reaction (Verified 03/18/20 08:41) Upset Stomach Medications ibuprofen 800 mg tablet 800 mg PO Q8H PRN #60 tab 03/18/20 [Rx Confirmed 03/18/20] misoprostol 200 mcg tablet 800 mcg VAGINAL Q24H 2 Days #8 tab 03/18/20 [Rx Confirmed 03/18/20] oxycodone-acetaminophen 5 mg-325 mg tablet 1 tab PO Q6H PRN #7 tab 03/18/20 [Rx Confirmed 03/18/20] PFSH Medical History (Updated 03/11/20 @ 17:[address] Zayra Marquez MD) Anxiety (Acute) Social History (Updated 03/18/20 @ 10:[address] 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 Not having bleeding or cramping. Denies discharge. Denies fevers. Pregancy History 2 Elective abortions Hx Para 1 Spontaneous abortions Hx # Term Pregnancies Ectopic pregnancies Hx # Pregnancies Multiple births # of living children ROS Const Constitutional: Denies chills, fatigue or fever(s) : Denies blood in urine, pelvic pain, urinary urgency, vaginal discharge, vaginal dryness, vaginal odor or vaginal itching Exam Const General: cooperative, healthy appearing, comfortable, well developed, well groomed Neck Neck: normal visual inspection, full ROM Resp Effort Inspection: normal respiratory effort, able to speak in complete sentences, symmetric chest movement Cardio Rate: regular rate Skin General: no rashes or lesions noted, elasticity normal, turgor normal Lesions: no lesions Rashes: no rashes Neuro General: alert, awake, oriented x3 Cranial Nerves: CN's II-XI intact bilaterally, PERRL, EOM intact bilaterally Cognition: normal cognition Speech: speech normal Gait: normal gait Extrem General: normal to inspection, full ROM, no pedal edema Psych Appearance: grossly normal Mental Status: mental status grossly normal Mood: congruent mood Affect: normal affect Speech and Movement: speech and movement normal Attitude: cooperative Thought Process: normal Thought Content: normal Assessment Plan 1. Missed O02.1 Plan - US 03/05 and 03/17 both show gestational sac without yolk sac or pole. Discussed that this is diagnostic for a missed AB - Support provided - discussed that this is not something that she could have prevented and that she did not do anything to cause this to happen. - Discussed management options including expectant, medical, and surgical management. Risks and benefits of each discussed. Patient elects for medical management. Aware of risk of failure and that she can change her mind at any time and elect for surgical management. Discussed that medical management is associated with significant cramping and heavy bleeding. Discussed return precautions. Given 2 doses of misoprostol - counseled to take second dose if no cramping or bleeding 24 hours after 1st dose. Plan Detail Other Medications New: misoprostol 800 mcg (4 x 200 mcg) vaginal Q24H 2 days 8 tabs 0RF oxycodone-acetaminophen 5-325 mg (Percocet) 1 tab PO Q6H PRN 7 tabs 0RF pain ibuprofen 800 mg PO Q8H PRN 60 tabs 0RF pain Coding Level of Care Code Off vis,est,level 3 Diagnoses Missed O02.1 03/18/20 1010 <Electronically signed by Kourtney Ceron MD> Date Kourtney Ceron MD Cosigner Signature: Date (if applicable) CC: Jacqueline Francis DO Work Phone: Start: 03-17-2020 End: 03-17-2020 Init OB < 14Wks US Comments: See Note; NOTES: [facility] Imaging Services [address] [place] [address] Init OB < 14Wks US MR#: [id number] Acct: [id number] Name: BRIT EUGENE Rep #: [id number] : 1995 F 24 From: Marcelino Navarro MD PCP: Dr. Jacqueline Blanco, DO Status: REG CLI Study: Init OB < 14Wks US Date of Exam: 03/17/20 Exam# [id number] Ordering Dr: Zayra Marquez STUDY: FIRST TRIMESTER OBSTETRICAL ULTRASOUND REASON FOR EXAM: Female, 24 years old. viability LMP: Unknown. TECHNIQUE: Transvaginal PRIOR ULTRASOUND: 03/11/20 FINDINGS: Again noted is fluid in the endometrial canal which may represent an early gestational sac. However, no yolk sac or pole is identified. There is a 2.1 x 0.5 cm subchorionic hemorrhage which is decreased in size when compared with the prior exam (previously 2.6 x 0.7 cm). The uterus measures 9.5 x 7.5 x 5.0 cm. There is no demonstrated uterine fibroid. The cervix is closed. The right ovary measures 3.5 x 2.5 x 1.7 cm. There is no right ovarian cyst. There is no visualized right adnexal mass or complex lesion. The left ovary measures 2.9 x 1.9 x 1.7 cm. There is no left ovarian cyst. There is no visualized left adnexal mass or complex lesion. There is no fluid in the cul de sac. US/Init OB < 14Wks US IMPRESSION: Redemonstration of fluid in the endometrial canal which may represent an early gestational sac. However, pneumocephalus or pole is identified. These findings may be due to an early intrauterine gestation, spontaneous or a nonvisualized ectopic . Follow-up sonography in beta hCG levels are recommended. 2.1 x 0.5 cm subchorionic hemorrhage which is decreased in size when compared with the prior exam. Electronically Signed: Marcelino Navarro, at 20:06 EDT Tel , Service support , CC: Dr. Jacqueline Blanco DO; Dr. Zayra Marquez MD Air Quality Consultant: Signed Jacqueline Blanco DO Work Phone: Start: 03-11-2020 End: 03-11-2020 Process Operator Office Visit Report Comments: See Note; NOTES: [facility] [address] [place] [address]. [address] [place] [address] OFFICE VISIT Date of Service: 03/11/20 MR#: [id number] Acct: [id number] Name: BRIT EUGENE Rep #: [id number] : 1995 Provider: Dr. Zayra hinton MD Age/Sex: 24/F Location: [facility] [place] Status: Signed Intake Vital Signs 03/11/20 BMI 21.1 03/11/20 Height 5 ft 7 in 03/11/20 Weight: 145 lb 03/11/20 BMI 22.7 03/11/20 BP 120/68 Intake Visit Reasons: FU from US possible miscarriage Chief Complaint: follow up up possible SAB Ping Pong Table Assembler Required: No Is patient in pain?: No Allergies gluten Adverse Reaction (Verified 03/11/20 16:07) Upset Stomach Medications NK 05/10/18 [History Confirmed 03/11/20] Is last menstrual period known: No Post menopausal: No Patient : Yes : No [facility] Medical History (Updated 03/11/20 @ 17:[address] Zayra Marquez MD) Anxiety (Acute) Social History (Updated 03/11/20 @ 17:[address] 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 she has been feeling good and no cramping or bleeding. she was unsure of her lmp. she had serial hcgs that brian but not as appropriately as it should. Pregancy History 2 Elective abortions Hx Para 1 Spontaneous abortions Hx # Term Pregnancies Ectopic pregnancies Hx # Pregnancies Multiple births # of living children ROS Const Constitutional: Denies fatigue, fever(s), headache(s), increased appetite, poor appetite, weight gain or weight loss GI GI: Reports as per HPI; denies abdominal pain, constipation, nausea or vomiting : Reports as per HPI; denies difficulty urinating, painful urination, blood in urine, nipple discharge, pelvic pain, urinary frequency, urinary incontinence, urinary hesitancy, urinary urgency, vaginal discharge, vaginal dryness, vaginal odor, vaginal itching or other Skin Skin/Breast: Denies hair loss, change in hair, dry skin, breast lump, breast pain, breast skin changes or nipple discharge Exam Const General: cooperative, healthy appearing, comfortable, no acute distress, well developed Orientation: alert HENKY Head: normal to inspection, normocephalic Ears: hearing grossly normal bilaterally, external ears normal Nose: external nose normal, nares normal Face and sinus: normal facial exam Neck Neck: normal visual inspection, no lymphadenopathy, trachea midline Thyroid: thyroid normal Resp Effort Inspection: normal respiratory effort Musc Other: gross motor intact no deficits, full bilateral strength Skin General: no rashes or lesions noted Neuro Motor: muscle tone normal throughout Assessment Plan Problems 1. Threatened O20.0 recommend repeat us in 1 week, discussed possible miscarriage and may need intervention with medication or d and c. d/w dr ceron also. Plan Problem list updated and treatment plans were reviewed with the patient and relevant educational handouts given. See problem list details for specific plan information. Orders Orders: Init OB < 14Wks US Today O03.9 Coding Level of Care Code Off vis,new,level 3 Diagnoses Threatened O20.0 03/11/20 7984 <Electronically signed by Zayra Marquez MD> Date Zayra Marquez MD [facility] Signature: Date (if applicable) CC: Jacqueline Blanco DO Work Phone: Start: 03-11-2020 End: 03-11-2020 Init OB < 14Wks US Comments: See Note; NOTES: [facility] Imaging Services [address] [place] [address] Init OB < 14Wks US MR#: [id number] Acct: [id number] Name: BRIT EUGENE Rep #: [id number] : 1995 F 24 From: Torito salomon MD PCP: Dr. Jacqueline Blanco DO Status: REG CLI Study: Init OB < 14Wks US Date of Exam: 03/11/20 Exam# [id number] Ordering Dr: Zayra Marquez STUDY: FIRST TRIMESTER OBSTETRICAL ULTRASOUND REASON FOR EXAM: Female, 24 years old FOLLOW UP PREV LMP UNKNOWN WELL BEING LMP: Unknown. TECHNIQUE: Transvaginal TECHNICAL QUALITY: Adequate. PRIOR ULTRASOUND: Comparison is made with prior examination dated 03/05/2020. FINDINGS: There is visualization of a single gestational sac in a normal intrauterine position. The mean sac diameter (MSD) measures 1.4 cm, indicating an estimated gestational age (EGA) of 6 weeks, 2 days. The gestational sac has an irregular appearance on the sagittal view. There is no demonstrated yolk sac. The placenta is non-visualized. There is no demonstrated embryo ( pole). The estimated gestation age (EGA) by LMP is unknown. The estimated gestation age (EGA) by US is 6 weeks, 2 days. The estimated date of delivery (ELAINA) by US is 11/02/2020. The uterus measures 9.6 cm x 6.6 cm x 5.1 cm there is evidence of a 2.6 cm x 0.6 cm x 0.7 cm subchorionic bleed adjacent to the empty gestational sac.. There is no demonstrated uterine fibroid. The cervix is closed. The right ovary is not visualized. The left ovary measures 3.2 cm x 2.2cm x 2.4 cm.. There is no left ovarian cyst. There is no visualized left adnexal mass or complex lesion. There is no fluid in the cul de sac. US/Init OB < 14Wks US IMPRESSION: Empty gestational sac which has an irregular appearance with a gestational age of 6 weeks and 2 days. 2.6 cm x 0.6 cm x 0.7 cm subchorionic bleed adjacent to the empty gestational sac. Electronically Signed: Torito Jordan, at 14:43 EDT , Service support , CC: Dr. Jacqueline Blanco DO; Dr. Zayra Marquez MD Air Quality Consultant: Signed Jacqueline Blanco DO Work Phone: Start: 03-05-2020 End: 03-05-2020 Transvaginal w/Preg US Comments: See Note; NOTES: [facility] Imaging Services [address] [place] [address] Transvaginal w/Preg US MR#: [id number] Acct: [id number] Name: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 This summary normalizes information from multiple sources, and as a consequence, information in this document may materially change the coding, format and clinical context of patient data. In addition, data may be omitted in some cases. CLINICAL DECISIONS SHOULD BE BASED ON THE PRIMARY CLINICAL RECORDS. [facility] provides no warranty or guarantee of the accuracy or completeness of information in this document.
== END | disposition home or self-care (01) ==
LOC: LABSPEC 10:24
PROVIDERS: PCP Internal Medicine; Referring Provider Obstetrics & Gynecology; Visit Provider Obstetrics & Gynecology
DX: Z34.90 Encounter for supervision of normal pregnancy, unspecified, unspecified trimester (principal)
CPT/HCPCS: 87081; J7120

== ENCOUNTER 2023-08-30 21:00 | Inpatient (IN) | payer OTHER, SELFPAY ==
[2023-08-30] VITALS (21 sets, daily range): BP systolic 94–132; BP diastolic 50–74; PULSE 81–118; RESP 16–18; TEMP 36.7–37.3; O2SAT 83–100; BMI 25.7
[2023-08-30] MEDS: LACTATED RINGERS 500 ML 999 ML IV ×2 (21:15→21:56)
--- OUTSIDE RECORDS SUMMARY | 2023-08-30 21:17 | XMS RPT_ITS | CCD ---
Author Name Unknown Address [address] [place] [address] Organization [facility] Care Team Providers Care Cutter Grind Tool Technician Name Role Phone Jacqueline Blanco Unavailable Juno Harrell Unavailable Unavailable GravJuanita vicente Unavailable Unavailable Mary Kent Unavailable Unavailable Kalpesh, Salas Unavailable Unavailable Keisha Matthews Unavailable Unavailable Unavailable Unavailable Jacqueline Blanco Attending Unavailable Jacqueline Blanco Referring Unavailable Jacqueline Blanco Consulting Unavailable Juno Harrell Unavailable Unavailable Jacqueline Blanco DO Unavailable [phone] Keisha Matthews RN Unavailable Unavailable Mary Kent RN Unavailable Unavailable Emchristal, Hanson Unavailable Unavailable Unavailable Unavailable Jacqueline Blanco DO Unavailable [phone] Kate Mackenzie Unavailable Juno Cho LPN Unavailable [...] oral solution (8 sources) alpha-Adrenergic Agonist, Uncompetitive V-amzfzb-D-aspartat e Receptor Antagonist, Sigma-1 Agonist Start: 05-23-2016 [...] index (BMI) [Ratio] 22.1 kg/m2 Juno Cho [facility]; [facility] Work Phone: 09-28-2021 09:51-0400 Body surface area Derived from formula 1.74 m2 Juno Cho [facility]; [facility] Work Phone: 09-28-2021 09:51-0400 Body weight 64.01 kg Juno Cho [facility]; [facility] Work Phone: 09-21-2021 08:13-0400 Body height 170.18 cm Sanna Catalan CMA Comprehens[facility]; [facility] Work Phone: 09-21-2021 08:13-0400 Body mass index (BMI) [Ratio] 22.1 kg/m2 Sanna Catalan CMA [facility]; [facility] Work Phone: 09-21-2021 08:13-0400 Body surface area Derived from formula 1.74 m2 Sanna Hossein EGG SMELLER [facility]; [facility] Work Phone: 09-21-2021 08:13-0400 Body temperature 96.8 [degF] Sanna Hossein MARKS Comprehensi ve [facility]; [facility] Work Phone: Encounters Encounter Date Encounter Type Care Provider Facility Start: 09-28-2021 End: 09-28-2021 Office outpatient visit 15 minutes Jacqueline Blanco DO Work Phone: [facility] Start: 09-22-2021 End: 09-22-2021 Annotation/Addendum Jacqueline Bishopon DO Work Phone: [facility] Start: 09-21-2021 End: 09-21-2021 Office outpatient visit 15 minutes Jacqueline Blanco DO Work Phone: [facility] Start: 04-24-2019 End: 04-25-2019 Office outpatient visit 25 minutes Jacqueilne Blanco [facility] Start: 04-24-2019 Review Jacqueline Francis [facility] Start: 08-23-2018 Patient encounter procedure [facility] Start: 08-01-2018 End: 08-01-2018 Office outpatient visit 15 minutes [facility] Start: 09-21-2017 End: 09-24-2017 Office outpatient visit 5 minutes [facility] Start: 09-18-2017 End: 09-18-2017 Annotation/Addendum Jacqueline [place] [facility] Start: 09-07-2017 End: 09-07-2017 Office outpatient visit 5 minutes [facility] Start: 09-05-2017 End: 09-05-2017 Office outpatient visit 5 minutes [facility] Start: 06-12-2017 End: 06-12-2017 Lab Order Jacqueline [place] [facility] Start: 04-12-2017 End: 04-12-2017 Patient encounter procedure [facility] Start: 04-09-2017 End: 04-09-2017 Office outpatient visit 10 minutes [facility] Start: 02-16-2017 End: 02-16-2017 Phone Encounter Jacqueline [place] [facility] Start: 02-13-2017 End: 02-13-2017 Phone Encounter Jacqueline [place] [facility] Start: 01-31-2017 End: 01-31-2017 Phone Encounter Jacqueline [place] [facility] Start: 01-26-2017 End: 01-26-2017 Office outpatient visit 15 minutes [facility] Start: 08-04-2016 End: 08-04-2016 Office [...] 11-12-2015 End: 11-12-2015 Annotation/Addendum Jacqueline [facility] Start: 11-12-2015 End: 11-12-2015 Office outpatient visit 15 minutes Jacqueline Blanco [facility] Start: 07-29-2013 End: 07-29-2013 Patient encounter procedure Jacqueline Blanco [facility] Start: 07-17-2013 End: 07-17-2013 Phone Encounter Jacqueline Blanco [facility] Start: 07-16-2013 End: 07-16-2013 Patient encounter procedure Jacqueline Blanco [facility] Start: 04-24-2013 End: 04-24-2013 Patient encounter procedure Jacqueline Blanco [facility] Start: 08-26-2012 End: 08-26-2012 Patient encounter procedure Jacqueline Blanco [facility] Start: 08-19-2012 End: 08-19-2012 Patient encounter procedure Jacqueline Blanco [facility] Start: 06-04-2012 End: 06-04-2012 Office outpatient visit 15 minutes Jacqueline Blanco [facility] Start: 04-08-2012 End: 04-08-2012 [...] Transvaginal w/Preg US Comments: See Note; NOTES: [facility] Imaging Services [address] [place] [address] Transvaginal w/Preg US MR#: [id number] Acct: [id number] Name: BRIT WALTER Rep #: [id number] : 1995 F 25 From: Bucky dominguez MD PCP: Dr. Jacqueline Blanco, DO Status: REG CLI Study: Transvaginal w/Preg US Date of Exam: 09/30/21 Exam# [id number] Ordering Dr: Zayra Marquez EXAM: US OB [...] Jacqueline Blanco DO; Dr. Zayra Marquez MD Translator Deaf: Signed Jacqueline Blanco DO Work Phone: Start: 03-07-2021 End: 03-07-2021 Document Image Technician Office Visit Report Comments: See Note; NOTES: [facility] [address] [place] [address]. [address] [place] [address] OFFICE VISIT Date of Service: 03/07/21 MR#: [id number] Acct: [id number] Name: BRIT WALTER Rep #: [id number] : 1995 Provider: Dr. 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 Date Name GA/Weeks Outcome Route Bth Weight Infant Gen Labor Lgth Anesthesia Del [facility] Provider FOB Unknown 02/06/2018- [place] 40 live - full term 8lbs 1oz Female 11 hour s epidural [facility] Dennis Casillas 01/26/21 [place] 39 live - full term Male epidural [facility] GP Delivery Date: 7 day post infection [...] visit. Infant Feeding: Breast Menses resumed: No [place] since delivery: No Emotional Support: Yes Last [...] DO Work Phone: Start: 01-24-2021 End: 01-24-2021 Document Image Technician Office Visit Report Comments: See Note; NOTES: [facility] [address] [place] [address] OFFICE VISIT Date of Service: 01/24/21 MR#: [id number] Acct: [id number] Name: BRIT WALTER Rep #: [id number] : 1995 Provider: Dr. 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 PRR. Anatomy scan 09/06. Birzdh-lv-rjb is throwing gender reveal constitution party. 09/27/20 -???-???-???-???-???-???-??? -???-???-???-???-???- 22w 3d 153 [...] DO Work Phone: Start: 01-17-2021 End: 01-17-2021 Document Image Technician Office Visit Report Comments: See Note; NOTES: [facility] [address] [place], [place] [phone] OFFICE VISIT Date of Service: 01/17/21 MR#: [id number] Acct: [id number] Name: BRIT WALTER Rep #: [id number] : 1995 Provider: Dr. 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 Date Name GA/Weeks Outcome Route Bth Weight Gen Labor Lgth Anesthesia Del Locatn Provider FOB Unknown 02/06/2018- [place] 40 live - full term 8lbs 1oz Female 11 hour s epidural [facility] Dennis Casillas Delivery Date: 7 day post [...] ping or bleeding. PRR. Anatomy scan 09/06. Vycmzp-xb-jee is throwing gender reveal constitution party. 09/27/20 -???-???-???-???-???-???-??? -???-???-???-???-???- 22w 3d 153 [...] DO Work Phone: Start: 01-10-2021 End: 01-10-2021 Document Image Technician Office Visit Report Comments: See Note; NOTES: [facility] [address] [place] [address] OFFICE VISIT Date of Service: 01/10/21 MR#: [id number] Acct: [id number] Name: BRIT WALTER Rep #: [id number] : 1995 Provider: Dr. 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 Date Name GA/Weeks Outcome Route Bth Weight Infant Gen Labor Lgth Anesthesia Del Locatn Provider FOB Unknown 02/06/2018- [place] 40 live - full term 8lbs 1oz Female 11 hour s epidural [facility] Dennis Casillas Delivery Date: 7 day post [...] ping or bleeding. PRR. Anatomy scan 09/06. Keoveq-rz-sfk is throwing gender reveal constitution party. 09/27/20 -???-???-???-???-???-???-??? -???-???-???-???-???- 22w 3d 153 [...] nourished Orientation: alert, awake and oriented x3 [facility] Head: normal to inspection, normocephalic and atraumatic [...] POC Urinalysis 2 Dip (Clinic) Today 01/10/21 0895 <Electronically signed by Kourtney Ceron MD> Date Kourtney Ceron MD Cosigner Signature: Date (if applicable) CC: Jacqueline Blanco DO Work Phone: Start: 01-03-2021 End: 01-03-2021 Document Image Technician Office Visit Report Comments: See Note; NOTES: [facility] [address] [place] [address] OFFICE VISIT Date of Service: 01/03/21 MR#: [id number] Acct: [id number] Name: BRIT WALTER Rep #: [id number] : 1995 Provider: Dr. 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 Date Name GA/Weeks Outcome Route Bth Weight Gen Labor Lgth Anesthesia Del Locatn Provider FOB Unknown 02/06/2018- [place] 40 live - full term 8lbs 1oz Female 11 hour s epidural [facility] Dennis Casillas Delivery Date: 7 day post [...] ping or bleeding. PRR. Anatomy scan 09/06. Mtvjks-nu-cef is throwing gender reveal constitution party. 09/27/20 -???-???-???-???-???-???-??? -???-???-???-???-???- 22w 3d 153 [...] Limited With Biometrics Comments: See Note; NOTES: [facility] Imaging Services [address] [place] [address] OB Limited With Biometrics MR#: [id number] Acct: [id number] Name: BRIT WALTER Rep #: [id number] : 1995 F 25 From: Torito salomon MD PCP: Dr. Jacqueline Blanco, Status: REG CLI Study: OB Limited With Biometrics Date of Exam: 01/03 Exam# [id number] Ordering Dr: Kourtney Ceron MD STUDY: SECOND [...] Kourtney Ceron MD; Dr. Jacqueline Blanco DO Translator Deaf: Signed Jacqueline Blanco DO Work Phone: Start: 12-20-2020 End: 12-20-2020 Document Image Technician Office Visit Report Comments: See Note; NOTES: [facility] [address] [place] [address]. [address] [place], [place] [address] OFFICE VISIT Date of Service: 12/20/20 MR#: [id number] Acct: [id number] Name: BRIT WALTER Rep #: [id number] : 1995 Provider: Dr. 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 Date Name GA/Weeks Outcome Route Bth Weight Gen Labor Lgth Anesthesia Del [facility] Provider FOB Unknown 02/06/2018- [place] 40 live - full term 8lbs 1oz Female 11 hour s epidural [facility] Dennis Casillas Delivery Date: 7 day post [...] ping or bleeding. PRR. Anatomy scan 09/06. Rkjtdl-im-abt is throwing gender reveal constitution party. 09/27/20 -???-???-???-???-???-???-??? -???-???-???-???-???- 22w 3d 153 [...] DO Work Phone: Start: 12-07-2020 End: 12-07-2020 Document Image Technician Office Visit Report Comments: See Note; NOTES: [facility] 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 Date Name GA/Weeks Outcome Route Bth Weight Gen Labor Lgth Anesthesia Del Locatn Provider FOB Unknown 02/06/2018- [place] 40 live - full term 8lbs 1oz Female 11 hour s epidural [facility] Dennis Casillas Delivery Date: 7 day post [...] ping or bleeding. PRR. Anatomy scan 09/06. Cyfkic-ws-wqu is throwing gender reveal constitution party. 09/27/20 -???-???-???-???-???-???-??? -???-???-???-???-???- 22w 3d 153 [...] during : Plan - Vicenta Sandoval NP, RUBBING BED OPERATOR-C: Stat ROM pending Plan Details Other Orders: Orders: POC Urinalysis 2 Dip (Clinic) Today (ROM) Rupture Of Membranes Today O42.90 12/07/20 1149 <Electronically signed by Vicenta Sandoval NP RUBBING BED OPERATOR-C> Date Vicenta Sandoval NP RUBBING BED OPERATOR-C Cosigner Signature: Date (if applicable) CC: Jacqueline Blanco DO Work Phone: Start: 12-06-2020 End: 12-06-2020 Document Image Technician Office Visit Report Comments: See Note; NOTES: [facility] [address] [place] [address] OFFICE VISIT Date of Service: 12/06/20 MR#: [id number] Acct: [id number] Name: BRIT WALTER Rep #: [id number] : 1995 Provider: Dr. 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 Date Name GA/Weeks Outcome Route Bth Weight Infant Gen Labor [facility] F[facility] 02/06/2018- [place] 40 live - full term 8lbs 1oz Female 11 hour s epidural [facility] Dennis Casillas Delivery Date: 7 day post [...] ping or bleeding. PRR. Anatomy scan 09/06. Ydmevk-iz-muu is throwing gender reveal constitution party. 09/27/20 -???-???-???-???-???-???-??? -???-???-???-???-???- 22w 3d 153 [...] Limited With Biometrics Comments: See Note; NOTES: [facility] Imaging Services [address] [place] [address] OB Limited With Biometrics MR#: [id number] Acct: [id number] Name: BRIT WALTER Rep #: [id number] : 1995 F 25 From: Torito salomon MD PCP: Dr. Jacqueline Blanco, DO Status: REG CLI Study: OB Limited With Biometrics Date of Exam: 12/06 Exam# [id number] Ordering Dr: Kourtney Ceron MD STUDY: SECOND [...] Kourtney Ceron MD; Dr. Jacqueline Blanco DO Translator Deaf: Signed Jacqueline Blanco DO Work Phone: Start: 11-15-2020 End: 11-15-2020 Document Image Technician Office Visit Report Comments: See Note; NOTES: [facility] [address] [place], [place] [address]. [address] [place] [address] OFFICE VISIT Date of Service: 11/15/20 MR#: [id number] Acct: [id number] Name: BRIT WALTER Rep #: [id number] : 1995 Provider: Dr. 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 PRR. Anatomy scan 09/06. Woditg-et-nyy is throwing gender reveal constitution party. 09/27/20 -???-???-???-???-???-???-??? -???-???-???-???-???- 22w 3d 153 [...] Limited With Biometrics Comments: See Note; NOTES: [facility] Imaging Services [address] [place] [address] OB Limited With Biometrics MR#: [id number] Acct: [id number] Name: BRIT WALTER Rep #: [id number] : 1995 F 25 From: Marcelino Navarro MD PCP: Dr. Jacqueline Blanco, Status: REG CLI Study: OB Limited With Biometrics Date of Exam: 11/08 Exam# [id number] Ordering Dr: Vicenta Sandoval RUBBING BED OPERATOR RUBBING BED OPERATOR -C STUDY: SECOND AND THIRD TRIMESTER OBSTETRICAL [...] CC: DAYTON Sandoval; Dr. Jacqueline Blanco DO Translator Deaf: Signed Jacqueline Blanco DO Work Phone: Start: 2020 End: 2020 Document Image Technician Office Visit Report Comments: See Note; NOTES: [facility] [address] [place] [address]. 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 Date Name GA/Weeks Outcome Route Bth Weight Infant Gen Labor Lgth Anesthesia Del [facility] Provider FOB Unknown 02/06/2018- [place] 40 live - full term 8lbs 1oz Female 11 hour s epidural [facility] Dennis Casillas Delivery Date: 7 day post [...] ping or bleeding. PRR. Anatomy scan 09/06. Etlaie-wk-znt is throwing gender reveal constitution party. 09/27/20 -???-???-???-???-???-???-??? -???-???-???-???-???- 22w 3d 153 [...] at 28 weeks Plan - Vicenta Sandoval RUBBING BED OPERATOR, RUBBING BED OPERATOR-C: problem list reviewed and updated for most current plan of care and appropriate orders placed. Relevant counseling for the gestational age appropriate provided and ACOG education checklist updated. Continue routine care and follow up. 10/25/20840 <Electronically signed by Vicenta Sandoval NP RUBBING BED OPERATOR-C> Date Vicenta Sandoval NP RUBBING BED OPERATOR-C Cosigner Signature: Date (if applicable) CC: Jacqueline Blanco DO Work Phone: Start: 09-27-2020 End: 09-27-2020 Document Image Technician Office Visit Report Comments: See Note; NOTES: [facility] 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 PRR. Anatomy scan 09/06. Gpamvg-fu-jbx is throwing gender reveal constitution party. 09/27/20 -???-???-???-???-???-???-??? -???-???-???-???-???- 22w 3d 153 [...] Other Normal Z34.80 PRR ELAINA 01/28/21 PC: Trae Spouse: oRny 2. 22 weeks gestation of Z3A.22 declines [...] 0835 <Electronically signed by Vicenta Sandoval NP RUBBING BED OPERATOR-C> Date Vicenta Sandoval NP RUBBING BED OPERATOR-C Cosigner Signature: Date (if applicable) CC: Jacqueline Blanco DO Work Phone: Start: 08-25-2020 End: 08-25-2020 Document Image Technician Office Visit Report Comments: See Note; NOTES: [facility] [address] [place] [address] OFFICE VISIT Date of Service: 08/25/20 MR#: [id number] Acct: [id number] Name: BRIT WALTER Rep #: [id number] : 1995 Provider: Dr. 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 PRR. Anatomy scan 09/06. Yidxpp-ex-cxi is throwing gender reveal constitution party. ACOG First Trimester First Trimester: Desire [...] DO Work Phone: Start: 07-28-2020 End: 07-28-2020 Document Image Technician Office Visit Report Comments: See Note; NOTES: [facility] [address] [place] [address] OFFICE VISIT Date of Service: 07/28/20 MR#: [id number] Acct: [id number] Name: BRIT WALTER Rep #: [id number] : 1995 Provider: Dr. 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 [place] [address] OFFICE VISIT Date of Service: 06/30/20 MR#: [id number] Acct: [id number] Name: BRIT WALTER Rep #: [id number] : 1995 Provider: Dr. 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 [place] [address] OFFICE VISIT Date of Service: 03/26/20 MR#: [id number] Acct: [id number] Name: BRIT EUGENE Rep #: [id number] : 1995 Provider: Dr. 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
[2023-08-30] MEDS: Lactated Ringers 1,000 ML 200 ML IV (21:22)
--- OUTSIDE RECORDS SUMMARY | 2023-08-30 21:26 | XMS RPT_ITS | CCD ---
Author Name Unknown Address [address] [place] [address] Organization [facility] Care Team Providers Care Judge Clerk Name Role Phone Jacqueline Blanoc Unavailable Juno Harrell Unavailable Unavailable GravJuanita vicente Unavailable Unavailable Mary Kent Unavailable Unavailable Kalpesh, Salas Unavailable Unavailable Keisha Matthews Unavailable Unavailable Unavailable Unavailable Jacqueline Blanco Attending Unavailable Jacqueline Blanco Referring Unavailable Jacqueline Blanco Consulting Unavailable Juno Harrell Unavailable Unavailable Jacqueline Blanco DO Unavailable [phone] Keisha Matthews RN Unavailable Unavailable Mary Kent RN Unavailable Unavailable Emchristal, Guayanilla Unavailable Unavailable Unavailable Unavailable Jacqueline Blanco DO Unavailable [phone] Kate Mackenzie Unavailable Juno Cho LPN [...] oral solution (8 sources) alpha-Adrenergic Agonist, Uncompetitive O-zonoxn-X-aspartat e Receptor Antagonist, Sigma-1 Agonist Start: 05-23-2016 [...] index (BMI) [Ratio] 22.1 kg/m2 Juno Cho [facility]; [facility] Work Phone: 09-28-2021 09:51-0400 Body surface area Derived from formula 1.74 m2 Juno Cho [facility]; [facility] Work Phone: 09-28-2021 09:51-0400 Body weight 64.01 kg Juno Cho [facility]; [facility] Work Phone: 09-21-2021 08:13-0400 Body height 170.18 cm Sanna Catalan CMA Comprehensiv e Internal Medicine; [facility] Work Phone: 09-21-2021 08:13-0400 Body mass index (BMI) [Ratio] 22.1 kg/m2 Sanna Catalan CMA [facility]; [facility] Work Phone: 09-21-2021 08:13-0400 Body surface area Derived from formula 1.74 m2 Sanna Hossein INTELLECTUAL PROPERTY MANAGER [facility]; [facility] Work Phone: 09-21-2021 08:13-0400 Body temperature 96.8 [degF] Sanna Hossein MARKS Comprehensi ve Internal Medicine; [facility] Work Phone: Encounters Encounter Date Encounter Type Care Provider Facility Start: 09-28-2021 End: 09-28-2021 Office outpatient visit 15 minutes Jacqueline Blanco DO Work Phone: [facility] Start: 09-22-2021 End: 09-22-2021 Annotation/Addendum Jacqueline Bishopon DO Work Phone: [facility] Start: 09-21-2021 End: 09-21-2021 Office outpatient visit 15 minutes Jacqueline Blanco DO Work Phone: [facility] Start: 04-24-2019 End: 04-25-2019 Office outpatient visit 25 minutes Jacqueline Blanco [facility] Start: 04-24-2019 Review Jacqueline Francis Compreh ensive Internal Medicine Start: 08-23-2018 Patient encounter procedure Jacqueline Graham Internal [facility] Start: 08-01-2018 End: 08-01-2018 Office outpatient visit 15 minutes Jacquelien Graham [facility] Start: 09-21-2017 End: 09-24-2017 Office outpatient visit 5 minutes Jacqueline Graham [facility] Start: 09-18-2017 End: 09-18-2017 Annotation/Addendum Jacqueline Graham Director Sales And Marketing al Medicine Start: 09-07-2017 End: 09-07-2017 Office outpatient visit 5 minutes Jacqueline Graham [facility] Start: 09-05-2017 End: 09-05-2017 Office outpatient visit 5 minutes Jacqueline Graham [facility] Start: 06-12-2017 End: 06-12-2017 Lab Order Jacqueline Graham Director Sales And Marketing al Medicine Start: 04-12-2017 End: 04-12-2017 Patient encounter procedure Jacqueline Graham [facility] Start: 04-09-2017 End: 04-09-2017 Office outpatient visit 10 minutes Jacqueline Graham [facility] Start: 02-16-2017 End: 02-16-2017 Phone Encounter Jacqueline Graham Director Sales And Marketing al Medicine Start: 02-13-2017 End: 02-13-2017 Phone Encounter Jacqueline Graham Director Sales And Marketing al Medicine Start: 01-31-2017 End: 01-31-2017 Phone Encounter Jacqueline Graham Director Sales And Marketing al Medicine Start: 01-26-2017 End: 01-26-2017 Office [...] 11-12-2015 End: 11-12-2015 Annotation/Addendum Jacqueline Francis Comprehensive Director Sales And Marketing al Medicine Start: 11-12-2015 End: 11-12-2015 Office outpatient visit 15 minutes Jacqueline Blanco [facility] Start: 07-29-2013 End: 07-29-2013 Patient encounter procedure Jacqueline Blanco [facility] Start: 07-17-2013 End: 07-17-2013 Phone Encounter Jacqueline Blanco Comprehensive Director Sales And Marketing al Medicine Start: 07-16-2013 End: 07-16-2013 Patient [...] Transvaginal w/Preg US Comments: See Note; NOTES: [facility] Imaging Services [address] [place] [address] Transvaginal w/Preg US MR#: [id number] Acct: [id number] Name: BRIT WALTER Rep #: [id number] : 1995 F 25 From: Bucky dominguez MD PCP: Dr. Jacqueline Blanco, DO Status: REG CLI Study: Transvaginal w/Preg US Date of Exam: 09/30/21 Exam# [id number] Ordering Dr: Zayra Marquez EXAM: US OB [...] Jacqueline Blanco DO; Dr. Zayra Marquez MD Customer Service Clerk: Signed Jacqueline Blanco DO Work Phone: Start: 03-07-2021 End: 03-07-2021 Data Technician Office Visit Report Comments: See Note; NOTES: [facility] [address] [place] [address]. [address] [place] [address] OFFICE VISIT Date of Service: 03/07/21 MR#: [id number] Acct: [id number] Name: BRIT WALTER Rep #: [id number] : 1995 Provider: Dr. Kourtney snow MD Age/Sex: 25/F [place] [facility] [place]: Signed Intake Vital Signs 03/07/21 11:23 Height 5 ft 7 in Weight: 136 lb 4 oz BMI 21.3 BP 104/70 Intake Visit Reasons: 6 WK PP, declined IUD Emergency Department Technician Required: No Is patient in pain?: No [...] ea 03/07/21 [Rx Confirmed 03/07/21] : [facility] History Anxiety depression Spontaneous vaginal delivery Family History Brother Diabetes Father Diabetes Social History (Updated 03/07/21 @ 11:21 by Kaerna Bernal) household members: family housing: house number of children: 2 Smoking Status: Never smoker alcohol intake: current details: social substance use type: does not use what type of physical activity do you participate in: none seatbelt use: always do you feel safe at home: Yes 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 Date Name GA/Weeks Outcome Route Bth Weight Infant Gen Labor Lgth Anesthesia Del [facility] Provider FOB Unknown 02/06/2018- Trae 40 live - full term 8lbs 1oz Female 11 hour s epidural [facility] Dennis Casillas 01/26/21 Abner 39 live - full term Male epidural [facility] GP Delivery Date: 7 day post [...] visit. Infant Feeding: Breast Menses resumed: No Shelbina since delivery: No Emotional Support: Yes Last [...] DO Work Phone: Start: 01-24-2021 End: 01-24-2021 Data Technician Office Visit Report Comments: See Note; NOTES: [facility] [address] [place] [address] OFFICE VISIT Date of Service: 01/24/21 MR#: [id number] Acct: [id number] Name: BRIT WALTER Rep #: [id number] : 1995 Provider: Dr. 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 PRR. Anatomy scan 09/06. Samniq-hb-zre is throwing gender reveal democrat. 09/27/20 -???-???-???-???-???-???-??? -???-???-???-???-???- 22w 3d 153 lb [...] DO Work Phone: Start: 01-17-2021 End: 01-17-2021 Data Technician Office Visit Report Comments: See Note; NOTES: [facility] [address] [place], [place] [phone] OFFICE VISIT Date of Service: 01/17/21 MR#: [id number] Acct: [id number] Name: BRIT WALTER Rep #: [id number] : 1995 Provider: Dr. 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 Date Name GA/Weeks Outcome Route Bth Weight Gen Labor Lgth Anesthesia Del Locatn Provider FOB Unknown 02/06/2018- Virden 40 live - full term 8lbs 1oz Female 11 hour s epidural [facility] Dennis Casillas Delivery Date: 7 day [...] ping or bleeding. PRR. Anatomy scan 09/06. Ahdsri-my-uju is throwing gender reveal democrat. 09/27/20 -???-???-???-???-???-???-??? -???-???-???-???-???- 22w 3d 153 lb [...] DO Work Phone: Start: 01-10-2021 End: 01-10-2021 Data Technician Office Visit Report Comments: See Note; NOTES: [facility] [address] [place] [address] OFFICE VISIT Date of Service: 01/10/21 MR#: [id number] Acct: [id number] Name: BRIT WALTER Rep #: [id number] : 1995 Provider: Dr. 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 Date Name GA/Weeks Outcome Route Bth Weight Infant Gen Labor Lgth Anesthesia Del Locatn Provider FOB Unknown 02/06/2018- Virden 40 live - full term 8lbs 1oz Female 11 hour s epidural [facility] Dennis Casillas Delivery Date: 7 day [...] ping or bleeding. PRR. Anatomy scan 09/06. Hxhakj-uw-stu is throwing gender reveal democrat. 09/27/20 -???-???-???-???-???-???-??? -???-???-???-???-???- 22w 3d 153 lb [...] alert, awake and oriented x3 [facility] Head: normal to inspection, normocephalic and [...] POC Urinalysis 2 Dip (Clinic) Today 01/10/21 0869 <Electronically signed by Kourtney Ceron MD> Date Kourtney Ceron MD Cosigner Signature: Date (if applicable) CC: Jacqueline Blanco DO Work Phone: Start: 01-03-2021 End: 01-03-2021 Data Technician Office Visit Report Comments: See Note; NOTES: [facility] [address] [place] [address] OFFICE VISIT Date of Service: 01/03/21 MR#: [id number] Acct: [id number] Name: BRIT WALTER Rep #: [id number] : 1995 Provider: Dr. 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 Date Name GA/Weeks Outcome Route Bth Weight Gen Labor Lgth Anesthesia Del Locatn Provider FOB Unknown 02/06/2018- Virden 40 live - full term 8lbs 1oz Female 11 hour s epidural [facility] Dennis Casillas Delivery Date: 7 day [...] ping or bleeding. PRR. Anatomy scan 09/06. Ottyli-gh-fkd is throwing gender reveal democrat. 09/27/20 -???-???-???-???-???-???-??? -???-???-???-???-???- 22w 3d 153 lb [...] Limited With Biometrics Comments: See Note; NOTES: [facility] Services [address] [place] [address] OB Limited With Biometrics MR#: [id number] Acct: [id number] Name: BRIT WALTER Rep #: [id number] : 1995 F 25 From: Torito salomon MD PCP: Dr. Jacqueline Blanco, Status: REG CLI Study: OB Limited With Biometrics Date of Exam: 01/03 Exam# [id number] Ordering Dr: Kourtney Ceron MD STUDY: SECOND [...] Age by LMP: 36 weeks, 3 days. LEAINA by LMP: 03/30/2021. age by prior US: [...] Kourtney Ceron MD; Dr. Jacqueline Blanco DO Customer Service Clerk: Signed Jacqueline Blanco DO Work Phone: Start: 12-20-2020 End: 12-20-2020 Data Technician Office Visit Report Comments: See Note; NOTES: [facility] [address] [place] [address]. [address] [place], [place] [address] OFFICE VISIT Date of Service: 12/20/20 MR#: [id number] Acct: [id number] Name: BRIT WALTER Rep #: [id number] : 1995 Provider: Dr. 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 Date Name GA/Weeks Outcome Route Bth Weight Gen Labor Lgth Anesthesia Del [facility] Provider FOB Unknown 02/06/2018- Virden 40 live - full term 8lbs 1oz Female 11 hour s epidural [facility] Dennis Casillas Delivery Date: 7 day [...] ping or bleeding. PRR. Anatomy scan 09/06. Crczru-fz-xlx is throwing gender reveal democrat. 09/27/20 -???-???-???-???-???-???-??? -???-???-???-???-???- 22w 3d 153 lb [...] DO Work Phone: Start: 12-07-2020 End: 12-07-2020 Data Technician Office Visit Report Comments: See Note; NOTES: [facility] 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 Date Name GA/Weeks Outcome Route Bth Weight Gen Labor Lgth Anesthesia Del Locatn Provider FOB Unknown 02/06/2018- Virden 40 live - full term 8lbs 1oz Female 11 hour s epidural [facility] Dennis Casillas Delivery Date: 7 day [...] ping or bleeding. PRR. Anatomy scan 09/06. Bzadkn-dn-tcb is throwing gender reveal democrat. 09/27/20 -???-???-???-???-???-???-??? -???-???-???-???-???- 22w 3d 153 lb [...] during : Plan - Vicenta Sandoval NP, ANTIQUE AUTO MUSEUM MAINTENANCE WORKER-C: Stat ROM pending Plan Details Other Orders: Orders: POC Urinalysis 2 Dip (Clinic) Today (ROM) Rupture Of Membranes Today O42.90 12/07/20 1149 <Electronically signed by Vicenta Sandoval NP ANTIQUE AUTO MUSEUM MAINTENANCE WORKER-C> Date Vicenta Sandoval NP ANTIQUE AUTO MUSEUM MAINTENANCE WORKER-C Cosigner Signature: Date (if applicable) CC: Jacqueline Blanco DO Work Phone: Start: 12-06-2020 End: 12-06-2020 Data Technician Office Visit Report Comments: See Note; NOTES: [facility] [address] [place] [address] OFFICE VISIT Date of Service: 12/06/20 MR#: [id number] Acct: [id number] Name: BRIT WALTER Rep #: [id number] : 1995 Provider: Dr. 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 Date Name GA/Weeks Outcome Route Bth Weight [facility]- Trae 40 live - full term 8lbs 1oz Female 11 hour s epidural [facility] Dennis Casillas Delivery Date: 7 day [...] ping or bleeding. PRR. Anatomy scan 09/06. Ghnqha-kf-hyl is throwing gender reveal democrat. 09/27/20 -???-???-???-???-???-???-??? -???-???-???-???-???- 22w 3d 153 lb [...] Limited With Biometrics Comments: See Note; NOTES: [facility] Imaging Services [address] [place] [address] OB Limited With Biometrics MR#: [id number] Acct: [id number] Name: BRIT WALTER Rep #: [id number] : 1995 F 25 From: Torito salomon MD PCP: Dr. Jacqueline Blanco, DO Status: REG CLI Study: OB Limited With Biometrics Date of Exam: 12/06 Exam# [id number] Ordering Dr: Kourtney Ceron MD STUDY: SECOND [...] Kourtney Ceron MD; Dr. Jacqueline Blanco DO Customer Service Clerk: Signed Jacqueline Blanco DO Work Phone: Start: 11-15-2020 End: 11-15-2020 Data Technician Office Visit Report Comments: See Note; NOTES: [facility] [address] [place], [place] [address]natalio. [address] [place] [address] OFFICE VISIT Date of Service: 11/15/20 MR#: [id number] Acct: [id number] Name: BRIT WALTER Rep #: [id number] : 1995 Provider: Dr. 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 PRR. Anatomy scan 09/06. Dgqfcb-op-cjm is throwing gender reveal democrat. 09/27/20 -???-???-???-???-???-???-??? -???-???-???-???-???- 22w 3d 153 lb [...] Limited With Biometrics Comments: See Note; NOTES: [facility] Services [address] [place] [address] OB Limited With Biometrics MR#: [id number] Acct: [id number] Name: BRIT WALTER Rep #: [id number] : 1995 F 25 From: Marcelino Navarro MD PCP: Dr. Jacqueline Blanco, Status: REG CLI Study: OB Limited With Biometrics Date of Exam: 11/08 Exam# [id number] Ordering Dr: Vicenta Sandoval ANTIQUE AUTO MUSEUM MAINTENANCE WORKER ANTIQUE AUTO MUSEUM MAINTENANCE WORKER -C STUDY: SECOND AND THIRD TRIMESTER OBSTETRICAL [...] CC: DAYTON Sandoval; Dr. Jacqueline Blanco DO Customer Service Clerk: Signed Jacqueline Blanco DO Work Phone: Start: 2020 End: 2020 Data Technician Office Visit Report Comments: See Note; NOTES: [facility] [address] [place] [address]. 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 Date Name GA/Weeks Outcome Route Bth Weight Infant Gen Labor Lgth Anesthesia Del [facility] Provider FOB Unknown 02/06/2018- Virden 40 live - full term 8lbs 1oz Female 11 hour s epidural [facility] Dennis Casillas Delivery Date: 7 day [...] ping or bleeding. PRR. Anatomy scan 09/06. Wnejsn-fv-zqg is throwing gender reveal democrat. 09/27/20 -???-???-???-???-???-???-??? -???-???-???-???-???- 22w 3d 153 lb [...] at 28 weeks Plan - Vicenta Sandoval ANTIQUE AUTO MUSEUM MAINTENANCE WORKER, ANTIQUE AUTO MUSEUM MAINTENANCE WORKER-C: problem list reviewed and updated for most current plan of care and appropriate orders placed. Relevant counseling for the gestational age appropriate provided and ACOG education checklist updated. Continue routine care and follow up. 10/25/20840 <Electronically signed by Vicenta Sandoval NP ANTIQUE AUTO MUSEUM MAINTENANCE WORKER-C> Date Vicenta Sandoval NP ANTIQUE AUTO MUSEUM MAINTENANCE WORKER-C Cosigner Signature: Date (if applicable) CC: Jacqueline Blanco DO Work Phone: Start: 09-27-2020 End: 09-27-2020 Data Technician Office Visit Report Comments: See Note; NOTES: [facility] 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 PRR. Anatomy scan 09/06. Mnfvgy-dq-edh is throwing gender reveal democrat. 09/27/20 -???-???-???-???-???-???-??? -???-???-???-???-???- 22w 3d 153 lb [...] Z34.80 PRR ELAINA 01/28/21 PC: Trae Spouse: Rony 2. 22 weeks gestation of [...] 0835 <Electronically signed by Vicenta Sandoval NP ANTIQUE AUTO MUSEUM MAINTENANCE WORKER-C> Date Vicenta Sandoval NP ANTIQUE AUTO MUSEUM MAINTENANCE WORKER-C Cosigner Signature: Date (if applicable) CC: Jacqueline Blanco DO Work Phone: Start: 08-25-2020 End: 08-25-2020 Data Technician Office Visit Report Comments: See Note; NOTES: [facility] [address] [place] [address] OFFICE VISIT Date of Service: 08/25/20 MR#: [id number] Acct: [id number] Name: BRIT WALTER Rep #: [id number] : 1995 Provider: Dr. 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 PRR. Anatomy scan 09/06. Gzgmcg-yy-fxf is throwing gender reveal democrat. ACOG First Trimester First Trimester: Desire for [...] DO Work Phone: Start: 07-28-2020 End: 07-28-2020 Data Technician Office Visit Report Comments: See Note; NOTES: [facility] [address] [place] [address] OFFICE VISIT Date of Service: 07/28/20 MR#: [id number] Acct: [id number] Name: BRIT WALTER Rep #: [id number] : 1995 Provider: Dr. 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 [place] [address] OFFICE VISIT Date of Service: 06/30/20 MR#: [id number] Acct: [id number] Name: BRIT WALTER Rep #: [id number] : 1995 Provider: Dr. 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 [place] [address] OFFICE VISIT Date of Service: 03/26/20 MR#: [id number] Acct: [id number] Name: BRIT EUGENE Rep #: [id number] : 1995 Provider: Dr. 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
[2023-08-30 21:44] LABS: Absolute Lymphocyte Count 2.16 X10^3/uL (0.83-4.51); Absolute Neutrophil Count 10.9 X10^3/uL (2.0-7.7); Basophil# 0.05 X10^3/uL; Basophil% 0.3 % (0-1); Eosinophil# 0.11 X10^3/uL; Eosinophils% 0.8 % (0-5); Hematocrit 32.8 % (37-47); Hemoglobin 10.5 g/dL (12.0-15.0); Lymphocyte # 2.16 X10^3/ul (0.83-4.51); Lymphocyte % 14.8 % (19-41); Mean Corpuscular Volume 84.3 fL (81-99); Mean Platelet Vol. 9.3 fl (6.2-12.0); Monocyte# 1.25 X10^3/uL; Monocyte% 8.6 % (0-10); NRBC Flagged by Analyzer 0 % (0-5); Neutrophil # 10.94 X10^3/uL (2.7-7.7); Platelet Count 396 K/mm3 (150-450); RBC Distribution Width CV 13.9 % (11.6-14.6); RBC Distribution Width SD 42.5 fl (35.1-43.9); Red Blood Count 3.89 M/mm3 (4.2-5.4); White Blood Count 14.6 K/mm3 (4.4-11.0)
[2023-08-30] MEDS: fentaNYL-bupivacaine (epidural) 100 ML BAG EPIDURAL (22:10)
[2023-08-30 22:35] LABS: HIV - WCH Non-Reactive (Nonreactive); Rubella IgG Reactive (Nonreactive); Syphilis Antibodies Non-reactive
[2023-08-30 22:51] LABS: Hepatitis B Surface Antigen Non-Reactive (Nonreactive); Hepatitis C Antibody Preliminary Reactive (Nonreactive)
[2023-08-30 23:44] LABS: AST(SGOT) 18 U/L (15-37); Alanine Aminotransfer ALT/SGPT 15 U/L (13-56); Albumin, Serum 2.4 g/dL (3.2-5.0); Alkaline Phosphatase 101 U/L (45-117); Bilirubin, Direct 0.14 mg/dL (0.00-0.30); Protein, Total 7.4 g/dL (6.4-8.2)
[2023-08-31] VITALS (34 sets, daily range): BP systolic 106–120; BP diastolic 56–75; PULSE 72–104; RESP 16–18; TEMP 36.7–37.4; O2SAT 96–99
[2023-08-31] MEDS: Oxytocin 15 Units/NS 250ml 15 UNITS/250 ML IV.SOLN 83 UNITS IV (00:13)
[2023-08-31] MEDS: Oxytocin 10 UNITS/ML Vial IM (00:13)
--- NOTE | 2023-08-31 00:16 | OP.PCM_ITS ---
Assessment & Plan (1) Supervision of normal : COMMENT: (declined labs other than cbc/gct, will draw at delivery) ELAINA 09/03/23 aditya- miriam or Ti Arce Trae Rony (2) : QUALIFIERS: Weeks of gestation: 39 weeks Qualified Code(s): Z3A.39 - 39 weeks gestation of COMMENT: PATIENT REFUSED TO DO LABS- NEEDS TO BE DONE AT DELIVERY. GBS neg, declined genetic, carrier, and ntd screen, anatomy normal (3) Depression affecting : COMMENT: has counselor (4) Hepatitis C antibody test positive: COMMENT: prelim positive, no known exposure or risk factors, LFTs WNL, will take precautions with delivery and confirmatory testing ordered (5) Vaginal delivery: COMMENT: SM 39 IAL SM [place] boy Maternal Data Information ELAINA Calculator Estimated Delivery Date Method Current WG Current Estimate 09/03/23 Ultrasound #1 39w 4d Vaginal Delivery Operative Information Date of Procedure: 08/31/23 Pre-Operative Diagnosis: see a/p diagnoses Post-Operative Diagnosis: same Surgery / Procedure Performed: Spontaneous Vaginal Delivery Type of Anesthesia: Epidural Special Medications: none Estimated Blood Loss: 100 Fluids Replaced: crystalloid Findings Description of Procedure: Patient began pushing and delivered the head in the RICKY presentation. The head was delivered atraumatically and a loose nuchal cord ?1 was identified and the infant delivered through without complication. The anterior and posterior shoulders delivered without complication followed by the rest of the infant and the was placed on the maternal abdomen. Delayed cord clamping was employed for approximately 60 seconds. Cord was clamped and cut and gentle traction was applied to the cord and the placenta delivered spontaneously immediately following it was noted to be intact with three-vessel cord. The perineum and vagina were inspected and noted to have no laceration. EBL was 100. Patient and tolerated delivery well. Amniotic Fluid Description: Clear Placental Delivery Description: Spontaneous Placenta Disposition: [facility] Cord Vessel Description: 3 Vessels Cord Entanglement: Around neck x 1, loose Delayed Cord Clamping: Yes Post Vaginal Delivery Medications Given After Delivery: IV Pitocin Episiotomy Description: None Complication Complications: None Procedures Urinary/Genital 52xxx-59xxx: 44693 Vaginal Delivery global pkg
--- NOTE | 2023-08-31 00:16 | HP.PCM.OB_ITS ---
HPI - General General Date of Admission: 08/30/23 HPI Narrative BRIT WALTER, is a 27 F who presents IAL 5-6 cm dilated regualr ctx no vb lof admits good fm. patient had refused most lab testing in due to cost, upon admission had positive hep c. since her last testing she denies any tattoos, needlestick injuries, or IVDA for her or her . Maternal Data Information ELAINA Calculator Estimated Delivery Date Method Current WG Current Estimate 09/03/23 Ultrasound #1 39w 4d PFSH PFSH Medical History (Updated 08/31/23 @ 02:[address] Zayra Marquez MD) Abnormal Pap smear of cervix Amenorrhea Anxiety depression Spontaneous vaginal delivery Vaginal delivery Home Medications multivitamin no.47-iron fum 27 mg-folate no.1 1 mg-dha 300 mg capsule (PNV-DHA) 1 cap PO DAILY 06/08/20 [History Last Taken 08/30/23] Allergy/AdvReac Type Severity Reaction Status Date / Time gluten AdvReac Upset Verified 08/30/23 21:56 Stomach Family History Brother Diabetes Father Diabetes Surgical History (Updated 08/30/23 @ 21:14 by Ruma Jerez) History of surgery Social History adopted: No household members: family housing: house number of children: 3 current occupational status: unemployed current occupation: [employer] pets and animals: Yes pets and animals: dog(s) history of recent travel: No sexually active: Yes Smoking Status: Never smoker alcohol intake: current details: social substance use type: does not use caffeine: Yes Type: coffee Number of servings: 2 what type of physical activity do you participate in: none seatbelt use: always do you feel safe at home: Yes 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 Date Name GA/Weeks Outcome Route Bth Weight Gen Labor Lgth Anesthesia Del Locatn Provider FOB Unknown 02/06/2018- Trae 40 live - full term 8lbs 1oz Female [address] [facility] Dennis Vinny 01/29/20 spontaneous 01/26/21 Abner 39 live - full term Male epidur al [facility] GP 04/04/22 Walker 38 live - full term 7lbs 10oz Male [facility] Dr. Homer hinton Rony Delivery Date: Last Updated by: Evelina Rodriguez 7 day post infection - fever ATB x10 days Visit Details Expected Delivery Route/Plan Labor Preferences- CB/BF classes: [] labor support person: [] labor intervention preferences: [] pain management options preferred: [] cut cord/dad catch: [] : [] PP control planned: [] discussed possible routes of delivery and associated risks: [] special requests: [] Plans Covid status: declines Flu vaccine: declines Tdap vaccine: declined Rhogam: [] LARC form signed: [] movement and labor precautions reviewed. Problem list reviewed and updated with the most current plan of care details and appropriate orders placed. Relevant counseling for the gestational age provided. Continue routine care and follow up unless otherwise noted in visit notes/problem list details OB Flowsheet Initial Weight: Not Recorded Date -?-?-?-?-?-?-?-?-?-?-?-?- EGA Weight BP Urine Prot -?-?-?-?-?-?-?-?-?-?-?-?- Glucose FHR FuHt Pres Dilation -?-?-?-?-?-?-?-?-?-?-?-?- Effaced St Visit Note 02/13/23 -?-?-?-?-?-?-?-?-?-?-?-?- 11w 1d 143 lb 102/62 Trace -?-?-?-?-?-?-?-?-?-?-?-?- Negative 160 -?-?-?-?-?-?-?-?-?-?-?-?- KW-Formal US alr sera done. Handheld today. FHR visualized. will need Anatomy US ordered next visit. Declines AFP 04/10/23 -?-?-?-?-?-?-?-?-?-?-?-?- 19w 1d 152 lb 2 oz 106/69 Nega tive -?-?-?-?-?-?-?-?-?-?-?-?- Negative 143 -?-?-?-?-?-?--?-?-?-?-?-?- kw-no vb/sapna gSamir good fm. Anatomy US 04/13. NOB labs today. 05/08/23 -?-?-?-?-?-?-?-?-?-?-?-?- 23w 1d 160 lb 101/63 Negative -?-?-?-?--?-?-?-?-?-?-?-?- Negative 145 -?-?-?-?-?-?-?-?-?-?-?-?- SM- patient decl ining labs due to cost with her insurance. counseled regarding risks, patient open to drawing at time of delivery. will get cbc and gct next visit. 06/05/23 -?-?-?-?-?-?-?-?-?-?-?-?- 27w 1d 162 lb 6 oz 100/61 Nega tive -?-?-?-?-?-?-?-?-?-?-?-?- Negative 145 27 -?-?-?-?-?-?-?-?-?-?-?-?- SM- no vb lof go od fm n oregular ctx cbc gct drawn today some pressure 06/26/23 -?-?-?-?-?-?-?-?-?-?-?-?- 30w 1d 167 lb 97/65 Negative -?-?-?-?-?-?-?-?-?-?-?-?- Negative 142 30 -?-?-?-?-?-?-?-?-?-?-?-?- KW- no vb/lof/ct x. good fm. passed glucose. no concerns 07/10/23 -?-?-?-?-?-?-?-?-?-?-?-?- 32w 1d 167 lb 100/67 Negative -?-?-?-?-?-?-?-?-?-?-?-?- Negative 126 32 -?-?-?-?-?-?-?-?-?-?-?-?- JV- no lof, vagi nal bleeding, or dec fm. no complaints today. 07/24/23 -?-?-?-?-?-?-?-?-?-?-?-?- 34w 1d 169 lb 6 oz 105/71 Nega tive -?-?-?-?-?-?-?-?-?--?-?-?- Negative 138 34 -?-?-?-?-?-?-?-?-?-?-?-?- JV- no lof, vagi nal bleeding, or cramping. 08/08/23 -?-?-?-?-?-?-?-?-?-?-?-?- 36w 2d 166 lb 6 oz 113/70 Nega tive -?-?-?-?-?-?-?-?-?-?-?-?- Negative 145 36 Cephalic 1 .5 -?-?-?-?-?-?-?-?-?-?-?-?- 80 -3 JV- gbs co llected. no lof, vaginal bleeding, or dec fm. 08/15/23 -?-?-?-?-?-?-?-?-?-?-?-?- 37w 2d 170 lb 4 oz 107/69 Nega tive -?-?-?-?-?-?-?-?-?-?-?-?- Negative 136 37 Cephalic -?-?-?-?-?-?-?-?-?-?-?-?- JV- pt declines exam today. no complaints. 08/20/23 -?-?-?-?-?-?-?-?-?-?-?-?- 38w 0d 169 lb 4 oz 110/68 Nega tive -?-?-?-?-?-?-?-?-?-?-?-?- Negative 135 37.5 1.5 -?-?-?-?-?-?-?-?-?-?-?-?- 50 -2 LC- no com plaints. no vb/ctx/lof. good fm. gbs negative. 08/30/23 -?-?-?-?-?-?-?-?-?-?-?-?- 39w 3d 172 lb 110/77 -?-?-?-?-?-?-?-?-?-?-?-?- 140 38 Cephalic 3 -?-?-?-?-?-?-?-?-?-?-?-?- 50 -2 SM- no vb lof good fm no regular ctx NST FHR Rate Baby A Baseline: 130 Variability:: Moderate Accelerations:: 15 x 15 Decelerations:: None NST Reactive:: Yes FHR Category:: Category I Uterine Activity:: q 2-3 ROS Constitutional Constitutional: Reports systems reviewed and no addt'l complaints, except as documented ENT HEENT: Reports systems reviewed and no addt'l complaints, except as documented Cardiovascular Cardiovascular: Reports systems reviewed and no addt'l complaints, except as documented Respiratory/Chest Respiratory/Chest: Reports systems reviewed and no addt'l complaints, except as documented Gastrointestinal Gastrointestinal: Reports systems reviewed and no addt'l complaints, except as documented and nausea; Denies abdominal pain Genitourinary Genitourinary: Reports systems reviewed and no addt'l complaints, except as documented, contractions Details: present and frequency (regular ) and movement Details: present Musculoskeletal Musculoskeletal: Reports systems reviewed and no addt'l complaints, except as documented Integumentary Integumentary: Reports as per HPI Neurologic Neurologic: Reports systems reviewed and no addt'l complaints, except as documented Endocrine Endocrinology: Reports systems reviewed and no addt'l complaints, except as documented Vital Signs Vital Signs Vital Signs: 08/30/23 20:53 08/30/23 20:53 08/30/23 20:55 Temperature Temperature Source Temporal Pulse Rate 81 Respiratory Rate Blood Pressure 132/73 H BP Systolic 132 BP Diastolic 73 Pulse Ox 08/30/23 20:55 08/30/23 20:55 08/30/23 20:55 Temperature 98.0 F Temperature Source Pulse Rate Respiratory Rate 16 Blood Pressure BP Systolic BP Diastolic Pulse Ox 98 08/30/23 21:47 08/30/23 21:57 08/30/23 21:57 Temperature Temperature Source Pulse Rate 84 Respiratory Rate Blood Pressure BP Systolic BP Diastolic Pulse Ox 83 100 08/30/23 22:02 08/30/23 22:02 08/30/23 22:02 Temperature Temperature Source Pulse Rate 93 Respiratory Rate Blood Pressure 124/74 H BP Systolic 124 BP Diastolic 74 Pulse Ox 99 08/30/23 22:02 08/30/23 22:07 08/30/23 22:07 Temperature Temperature Source Pulse Rate 87 90 Respiratory Rate Blood Pressure BP Systolic BP Diastolic Pulse Ox 100 08/30/23 22:09 08/30/23 22:09 08/30/23 22:12 Temperature Temperature Source Pulse Rate 89 91 Respiratory Rate Blood Pressure 117/67 BP Systolic 117 BP Diastolic 67 Pulse Ox 08/30/23 22:12 08/30/23 22:12 08/30/23 22:12 Temperature Temperature Source Pulse Rate 91 Respiratory Rate Blood Pressure 110/68 BP Systolic 110 BP Diastolic 68 Pulse Ox 97 08/30/23 22:17 08/30/23 22:17 08/30/23 22:18 Temperature Temperature Source Pulse Rate 92 Respiratory Rate Blood Pressure 120/68 BP Systolic 120 BP Diastolic 68 Pulse Ox 95 08/30/23 22:18 08/30/23 22:22 08/30/23 22:22 Temperature Temperature Source Pulse Rate 86 90 Respiratory Rate Blood Pressure 113/64 BP Systolic 113 BP Diastolic 64 Pulse Ox 08/30/23 22:22 08/30/23 22:27 08/30/23 22:27 Temperature Temperature Source Pulse Rate 96 Respiratory Rate Blood Pressure 100/57 L BP Systolic 100 BP Diastolic 57 Pulse Ox 99 08/30/23 22:27 08/30/23 22:32 08/30/23 22:32 Temperature Temperature Source Pulse Rate 118 H Respiratory Rate Blood Pressure 94/50 L BP Systolic 94 BP Diastolic 50 Pulse Ox 100 08/30/23 22:32 08/30/23 22:37 08/30/23 22:37 Temperature Temperature Source Pulse Rate 103 H Respiratory Rate Blood Pressure BP Systolic BP Diastolic Pulse Ox 99 99 08/30/23 22:37 08/30/23 22:37 08/30/23 22:42 Temperature Temperature Source Pulse Rate 103 H Respiratory Rate Blood Pressure 97/52 L 102/57 L BP Systolic 97 102 BP Diastolic 52 57 Pulse Ox 08/30/23 22:42 08/30/23 22:42 08/30/23 22:47 Temperature Temperature Source Pulse Rate 90 109 H Respiratory Rate Blood Pressure BP Systolic BP Diastolic Pulse Ox 100 08/30/23 22:47 08/30/23 22:47 08/30/23 22:47 Temperature Temperature Source Pulse Rate 97 Respiratory Rate Blood Pressure 106/61 BP Systolic 106 BP Diastolic 61 Pulse Ox 100 08/30/23 22:02 08/30/23 22:18 08/30/23 22:12 Temperature Temperature Source Pulse Rate Respiratory Rate 18 18 18 Blood Pressure BP Systolic BP Diastolic Pulse Ox 08/30/23 22:09 08/30/23 22:52 08/30/23 22:32 Temperature Temperature Source Pulse Rate 101 H Respiratory Rate 18 18 Blood Pressure BP Systolic BP Diastolic Pulse Ox 08/30/23 22:27 08/30/23 22:22 08/30/23 22:52 Temperature Temperature Source Pulse Rate Respiratory Rate 18 18 Blood Pressure BP Systolic BP Diastolic Pulse Ox 100 08/30/23 22:52 08/30/23 22:52 08/30/23 22:52 Temperature Temperature Source Pulse Rate 81 Respiratory Rate 18 Blood Pressure 112/67 BP Systolic 112 BP Diastolic 67 Pulse Ox 08/30/23 22:47 08/30/23 22:42 08/30/23 22:37 Temperature Temperature Source Pulse Rate Respiratory Rate 18 18 18 Blood Pressure BP Systolic BP Diastolic Pulse Ox 08/30/23 22:54 08/30/23 22:54 08/30/23 22:54 Temperature Temperature Source Pulse Rate 86 Respiratory Rate 18 Blood Pressure 114/71 BP Systolic 114 BP Diastolic 71 Pulse Ox 08/30/23 23:32 08/30/23 23:32 08/30/23 23:33 Temperature Temperature Source Pulse Rate 91 Respiratory Rate Blood Pressure 108/56 L BP Systolic 108 BP Diastolic 56 Pulse Ox 97 08/30/23 23:33 08/30/23 23:33 08/30/23 23:52 Temperature Temperature Source Temporal Pulse Rate 100 Respiratory Rate 18 Blood Pressure BP Systolic BP Diastolic Pulse Ox 08/30/23 23:52 08/31/23 00:02 08/31/23 00:02 Temperature 99.1 F Temperature Source Pulse Rate 92 Respiratory Rate Blood Pressure 116/64 BP Systolic 116 BP Diastolic 64 Pulse Ox Weight Weight: 169 lb 5.04 oz Body Mass Index (BMI) 25.7 Physical Exam Const alert, oriented x3 and healthy appearing Constitutional Narrative: uncomfortable with contractions HEENT normocephalic and moist oral mucous membranes Head and Scalp: atraumatic Neck full ROM, no lymphadenopathy, supple and thyroid normal General: trachea midline Thyroid: thyroid normal Lymph Lymphatic: no lymphadenopathy noted Chest inspection of chest normal Resp normal respiratory effort Cardio regular rate GI normal to inspection, nondistended, normoactive bowel sounds, soft to palpation and non-tender Inspection: gravid external exam normal Bimanual Exam - Vag & Uterus: uterus non-tender Manual OB Exam: estimated gestational size appropriate, presentation cephalic, dilated 5-6, effaced and station Extremity normal to inspection General Extremity: Negative for edema Skin no rashes or lesions noted Neuro deep tendon reflexes 2+ bilaterally Motor Exam: strength 5/5 throughout and clonus absent Psych mental status grossly normal Labs Labs Labs: Blood Type A POSITIVE Antibody Screen NEGATIVE Hct 32.8 % (37-47) L Hgb 10.5 g/dL (12.0-15.0) L Obstetrics Ultrasound Syphilis Total Ab Non-reactive Rubella IgG Antibody Reactive (Nonreactive) Hep Bs Antigen Non-Reactive (Nonreactive) Hepatitis C Antibody Preliminary Reactive (Nonre active) Chlamydia DNA (SWAPNA) Negative (Negative) N.gonorrhoeae DNA (SWAPNA) Negative (Negative) HIV 1&2 Antibody Non-Reactive (Nonreactive) Glucose 1 Hr 50 gm 79 mg/dL (70-140) Rhogam given: No Assessment & Plan (1) Depression affecting : COMMENT: has counselor (2) : QUALIFIERS: Weeks of gestation: 39 weeks Qualified Code(s): Z3A.39 - 39 weeks gestation of COMMENT: PATIENT REFUSED TO DO LABS- NEEDS TO BE DONE AT DELIVERY. GBS neg, declined genetic, carrier, and ntd screen, anatomy normal (3) Supervision of normal : COMMENT: (declined labs other than cbc/gct, will draw at delivery) ELAINA 09/03/23 aditya- miriam or Ti Arce Leighton Rony (4) Active labor at term: (5) Hepatitis C antibody test positive: COMMENT: prelim positive, no known exposure or risk factors, LFTs WNL, will take precautions with delivery and confirmatory testing ordered PLAN: Plan Patient presents IAL, plan expectant management for , pitocin/AROM PRN if needed. Pain management: plans epidural. GBS neg. Management of any complications: none I have reviewed the [facility] and made any clinically relevant updates.
--- NOTE | 2023-08-31 02:25 | DCINST_ITS ---
Discharge Instructions Diet Discharge Diet: No restrictions Activity Discharge Activity: Return to Normal Activity, May Not Drive (while taking narcotic pain medications.) and May Shower May resume sexual activity in: 4-6 weeks Dressing / Incision Call your doctor if your incision/area has: Continuous Slow Oozing, Sudden Increased Bleeding, Increased Pain/ Swelling, Increased Redness and Foul Smelling Discharge Follow Up Care Please Follow Up With: Zayra Marquez MD When: Call [phone] to make an appointment with your doctor in 6 weeks. If you had elevated blood pressure or 4th degree laceration, you will need to be seen in 2 weeks. Test Results: Test results from this visit will be discussed in further detail at your follow- up appointment, if applicable. Discharge Plan Admission Admit Date/Time: 08/30/23 21:00 Attending Provider: Zayra Marquez Primary Care Provider: Jacqueline Blanco Discharge Orders/Prescriptions Prescriptions: No Action PNV-DHA 27 mg iron-1 mg -300 mg capsule 1 cap PO DAILY Referrals / Follow Up: Jacqueline Blanco DO [Primary Care Provider] - Disposition Disposition (needs filled in before D/C Order can be placed): Home, Self Care
[2023-09-01 00:58] VITALS: BP 111/61; PULSE 67; RESP 18
--- NOTE | 2023-09-01 08:05 | PCM.PN.OB ---
Subjective Subjective Patient doing well without complaints. Tolerating PO. Ambulating and voiding without difficulty. feeding well. Denies chest pain, shortness of breath, calf pain/swelling, fevers, chills, lightheadedness. Objective Data Objective Data Vital Signs: Vital Signs Temp Pulse Resp BP Pulse Ox O2 Del Method 99 F 67 18 111/61 98 Room Air 08/31/23 20:20 09/01/23 00:58 09/01/23 00:58 09/01/23 00:58 08/31/23 16:35 09/01/23 00:58 Oxygen Delivery Method Room Air Weight: 169 lb 5.04 oz Body Mass Index (BMI) 25.7 Intake & Output: Intake and Output for Last 24 Hours 08/30/23 08/31/23 09/01/23 23:59 23:59 23:59 Intake Total 1000 / 1000 820 / 820 Output Total 1700 / 1700 Balance 1000 / 1000 -880 / -880 Lab / Micro Data 08/30/23 21:15 Micro: Microbiology 08/30/23 21:15 Urine, Clean Catch Chlamydia trachomatis (PCR) - Final 08/30/23 21:15 Urine, Clean Catch Neisseria gonorrhoeae (PCR) - Final ROS Constitutional Constitutional: Reports systems reviewed and no addt'l complaints, except as documented Cardiovascular Cardiovascular: Reports systems reviewed and no addt'l complaints, except as documented Respiratory/Chest Respiratory/Chest: Reports systems reviewed and no addt'l complaints, except as documented Gastrointestinal Gastrointestinal: Reports systems reviewed and no addt'l complaints, except as documented Physical Exam Const alert, oriented x3 and no apparent distress HEENT Head and Scalp: atraumatic Resp normal respiratory effort GI soft to palpation and non-tender Bimanual Exam - Vag & Uterus: uterus non-tender Uterus Palpation: uterus fundus firm (below Umbilicus) Assessment & Plan (1) Vaginal delivery: COMMENT: SM 39 IAL SM [place] boy (2) Hepatitis C antibody test positive: COMMENT: prelim positive, no known exposure or risk factors, LFTs WNL, will take precautions with delivery and confirmatory testing ordered (3) Depression affecting : COMMENT: has counselor PLAN: Plan s/p PPD # 1 1. routine post delivery care 2. breast feeding- support given 3. rh positive 4. rubella immune
[2023-09-01 08:21] VITALS: BP 113/72; PULSE 73; O2SAT 98
[2023-09-01 08:24] VITALS: BP 113/72; PULSE 73; RESP 16; TEMP 36.4; O2SAT 98
--- NOTE | 2023-09-01 09:56 | CASEMGMT ---
Social Work Labor and Delivery Unit Date/Time of referral: 08/31/2023, 2:33am Referred by: Zayra Marquez MD Date/Time of intervention: 09/01/23, 9:00am Reason for referral: hx anxiety and PPD History obtained from: MOB, FOB, medical record Household composition: GUY HUGHES, 3 children under 5 and now baby Juan Pablo Medical History: MOB--Amenorrhea, anxiety, depression. Baby: Born 08/31/23 at 12:10am, Apgars 8 and 9 at one and five minutes, 3.335 kg at Educational status: MOB has associates degree, GUY has associates also Financial Status: No financial concerns. 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 MOB plans to breast and bottle feed. Childcare/Caregivers: SAUL, ELLIOTTB, FOB's parents Transportation: They have 8 vehicles Programs/agencies involved: MOB goes to counseling once per month at [facility] Services/legal issues: None Behavioral Health: Substance abuse: None for MOB or FOB. No tox screens documented for MOB and baby on this admission. Mental Health: FOB: None. SAUL: States has anxiety, has had PPD. She states has been in counseling for two years, goes once per month and finds this helpful. She states did go on medication for about 6 months after the of her first child, has not been on medication since. MOB feels her symptoms are controlled at this time. Family/Social Stressors: None Support systems: Both MOB and FOB' families, FOB's two sisters, MOB's sister and brother, their parents. Depression/Anxiety/Shaken Baby/Safe Sleeping/Counseling Resources/Mental Health Hotlines/[facility] Resources: SW gave MOB resources on all of these topics and reviewed the information. SW reviewed in particular the information about PPD and anxiety and warning signs. SW encouraged MOB if she is having symptoms to speak w/her physician about medication. MOB already is in counseling, SW encouraged her to consider increasing counseling should she have symptoms. MOB states understanding. They have [facility] already involved for one of the other children so will reach out if they want [facility] to be involved with this child. Assessment: MOB and FOB open w/SW, answered all questions. SW did not observe MOB interacting with the baby as the baby was out of the room for circumcision. They voiced no concerns for homegoing. Plan: Baby to go home w/MOB and FOB, no further social service needs anticipated at this time. MELVIN Garza
[2023-09-01 20:07] LABS: HCV Quant. RNA PCR HCV Not Detected IU/mL (.)
== END 2023-09-01 12:10 | disposition home or self-care (01) | DRG 807 ==
LOC: WPOUT 21:02 → WP 08-31 00:18
PROVIDERS: Admitting Provider Obstetrics & Gynecology; PCP Internal Medicine; Referring Provider Obstetrics & Gynecology; Visit Provider Obstetrics & Gynecology
DX: O69.81X0 Labor and delivery complicated by cord around neck, without compression, not applicable or unspecified (principal); Z37.0 Single live birth; O99.344 Other mental disorders complicating childbirth; F32.A Depression, unspecified; Z3A.39 39 weeks gestation of pregnancy; R76.8 Other specified abnormal immunological findings in serum
CPT/HCPCS: 59025; 59050; 80076; 85025; 86703; 86762; 86780; 86803; 86850; 86900; 86901; 87340; 87491; 87522; 87591; 99221; J7120; G0378

== ENCOUNTER → 2023-10-12 | Outpatient (CLI) | payer OTHER, SELFPAY ==
[2023-10-18 20:18] LABS: HPV Reflexed? NOT INDICATED
== END | disposition home or self-care (01) ==
LOC: LABSPEC 17:04
PROVIDERS: PCP Internal Medicine; Referring Provider Obstetrics & Gynecology; Visit Provider Obstetrics & Gynecology
DX: Z12.4 Encounter for screening for malignant neoplasm of cervix (principal)
CPT/HCPCS: 88175; G0145